=== PATIENT | female | born 1955 | race Caucasian/White ===

== ENCOUNTER → 2018-03-29 15:41 | Outpatient (CLI) | payer BC, SELFPAY | PROVIDERS: PCP Family Medicine; Visit Provider Family Medicine | DX: R00.2 Palpitations (principal) | CPT/HCPCS: 93225; 93226 ==

== ENCOUNTER → 2018-04-05 15:05 | Outpatient (CLI) | payer BC, SELFPAY ==
--- NOTE | 2018-04-05 15:27 | CA_ITS ---
PROCEDURE: 2-D M-mode and color Doppler study INDICATIONS FOR THE TEST: Chest pain COPD Heart Murmur Tobacco Smoking PalpitationsX Fatigue SyncopeX Edema HypertensionXDiabetes Mellitus Rheumatic Fever SOB SCOTT Obesity Hyperlipidemia Family History HD Additional History DIZZINESS PATIENT INFORMATION HEIGHT: 64 WEIGHT:140 GENDER: Female B/P:117/58 2-D/M-MODE INTERPRETATION: 2-D MEASUREMENTS OBSERVED VALUES IN CMS Right Ventricular Dimension (RVDd) 2.2 Interventricular Septum (Thickness)(IVsd) .9 Left Ventricular Internal Dimensions(LVIDd) 3.9 Left Ventricular Posterior Wall (Thickness)(LVPWd) 1.1 Aortic Root 3.5 Aortic Cusp Separation 2.1 Left Atrial Dimensions (LAD) 2.4 2D 1. Left atrium is normal size, left ventricle is normal size, there is no concentric left ventricular hypertrophy, visually estimated ejection fraction 55% with no obvious regional wall motion abnormality. 2. The right atrium and right ventricle are normal size and contractility. 3. The aortic valve is minimally thickened and fibrosed. 4. The mitral and tricuspid valvular grossly normal. 5. The pulmonic valve is poorly visualized. 6. No significant pericardial effusion noted. DOPPLER INTERROGATION: Doppler interrogation of the aortic, mitral and tricuspid valve reveals presence of mild mitral and tricuspid regurgitation. Tricuspid regurgitant jet velocity insufficient for calculation of the right ventricular systolic pressure, diastolic parameters are within normal range. CONCLUSION: 1. Normal left ventricular size, preserved left ventricular systolic function, visually estimated ejection fraction 55% with no obvious regional wall motion abnormality, diastolic parameters are within normal range. 2. Mild mitral and tricuspid regurgitation 3. No significant pericardial effusion noted.
== END ==
PROVIDERS: Family Provider Family Medicine; PCP Family Medicine; Visit Provider Family Medicine
DX: R00.2 Palpitations (principal)
CPT/HCPCS: 93306

== ENCOUNTER → 2019-05-23 14:42 | Outpatient (CLI) | payer BC, SELFPAY ==
--- NOTE | 2019-05-23 14:49 | XR_ITS ---
EXAM: XR lumbar spine min 4V HISTORY: ITS.REASON: ACUTE LT SIDED LBP W/O SCIATICA ORDERING PHYSICIAN: Giovanni Horner MD PATIENT AGE: 63 years COMPARISON: None FINDINGS: There is degenerative disc disease at T11-T12. Normal alignment of the lumbar spine with no significant degenerative change,. No fracture or dislocation. Mild facet sclerosis is present at L5-S1. The SI joints have an unremarkable appearance IMPRESSION: Mild degenerative change, no acute finding
--- NOTE | 2019-05-23 14:49 | XR_ITS ---
XR sacrum coccyx min 2V CLINICAL INDICATION: Low back pain, injury with pain ORDERING PHYSICIAN: Giovanni Horner MD PATIENT AGE: 63 years Comparison: None FINDINGS: No fracture or dislocation. No lytic or blastic change. 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 IMPRESSION: No acute finding
== END ==
PROVIDERS: PCP Family Medicine; Visit Provider Family Medicine
DX: M54.5 Low back pain (principal)
CPT/HCPCS: 72110; 72220

== ENCOUNTER 2019-06-06 08:47 | Outpatient (RCR) | payer BC, SELFPAY ==
--- NOTE | 2019-06-06 10:26 | HMH.PTOPEV ---
PT Outpatient Evaluation Rehab PT Outpatient Evaluation Start: 06/06/19 10:05 Freq: Status: Active Protocol: Document 06/06/19 10:05 JOYA (Rec: 06/06/19 10:25 JOYA [id number]) Electronically Signed By Jerald Hernandez PT 06/06/19 10:05 Outpatient Therapy Subjective History Subjective History This is the initial Physical Therapy evalaution for Reba Arita. Pt is a 63 y/o female referred to PT for c/o intermittant vertigo w/ chronic dizziness and nausea. Pt reprots she has had c/o dizziness and vertigo for several years. Pt reports she gets vertigo 3-4 x per year . Pt reports recently she fell in her bathroom because she turned around too fast causing her to have vertigo and causing her to fall. Pt reprots when she has vertigo it can last for days and cause severe unrelenting N&V. Chief Complaint Other Symptom Type Other Symptoms Relieved By Prescription Meds Symptoms Aggravated By Bending/Stooping,Twisting Prior Functional Limitations None Current Functional Limitations Housework,Driving,Sleeping, Recreation Activity,Balance, Bending/Stooping Symptom Description Intermittent Level of pain today (0-10) 0 Pain scale - at its best (0-10) 0 Pain scale - at its worst (0-10) 0 Balance Eval Subjective Hx of Complaint Comment intermittan vertigo multiple times/year Chief Complaint vertigo Yes Did you feel dizzy, unsteady or faint? Yes Prior Functional Limitations Prior Functional Cecil Level fully Independent Current Functional Limitations Comment recreation activity, driving Hx of Falls Hx Falls Yes Number in last 6 months 2 Gait/Posture Asssessment General Gait Observation Antalgic Gait Assistive Devices None / NA Level of Transfer Assist Independent Hip Observation in Gait Swing No Deviation Hip Observation in Gait Stance No Deviation Ankle/Foot Observation in Gait Swing No Deviation Ankle/Foot Observation in Gait Stance No Deviation Nystagmus Nystagmus Presence None Oculomotor Gaze Oculomotor Gaze Nml: Vergence Smooth Purs
== END 2019-06-06 08:55 | disposition home or self-care (01) ==
LOC: PT 08:47
PROVIDERS: Visit Provider Family Medicine
DX: H81.10 Benign paroxysmal vertigo, unspecified ear (principal)
CPT/HCPCS: 97112; 97163

== ENCOUNTER → 2021-05-09 08:11 | Outpatient (CLI) | payer MEDICARE, SELFPAY ==
[2021-05-09 10:38] LABS: Chloride 105 mmol/L (98-107); Potassium 4.2 mmoL/L (3.5-5.1); Sodium 140 mmol/L (136-145)
[2021-05-09 10:41] LABS: Alanine Aminotransferase 19 U/L (12-78); Albumin Level 4.2 g/dl (3.5-5.0); Albumin/Globulin Ratio 1.8 (1.1-1.8); Alkaline Phosphatase 72 U/L (38-126); Anion Gap 13.2 mEq/L (5-15); Aspartate Amino Transferase 26 U/L (14-36); Bilirubin,Total 0.7 mg/dl (0.2-1.3); Blood Urea Nitrogen 12 mg/dl (7-17); Carbon Dioxide 26 mmol/L (22.0-30.0); Cholesterol 157 mg/dl (140-200); Estimated Glomerular Filt Rate 100 ml/min (>60); GFR (African American) 121 ML/MIN (>60); Globulin 2.3 g/dL (1.3-3.2); Total Protein,Serum 6.5 g/dl (6.3-8.2); Triglycerides 63 mg/dl (30-150); VLDL Cholesterol 13 mg/dL (0-40)
[2021-05-09 10:42] LABS: Calcium 9.1 mg/dl (8.4-10.2); Chol/HDL Ratio 2.3 (1-3.5); Glucose 88 mg/dl (74-100); HDL Cholesterol 68 mg/dl (40-60)
[2021-05-09 10:53] LABS: Direct LDL Cholesterol 64.83 mg/dL (100-129)
== END ==
PROVIDERS: Visit Provider Family Medicine
DX: I10 Essential (primary) hypertension (principal); E75.5 Other lipid storage disorders
CPT/HCPCS: 36415; 80053; 80061

== ENCOUNTER → 2022-04-09 08:58 | Outpatient (CLI) | payer MEDICARE, SELFPAY | PROVIDERS: PCP Family Medicine; Visit Provider Surgery | DX: Z01.812 Encounter for preprocedural laboratory examination (principal); Z11.52 Encounter for screening for COVID-19; Z12.11 Encounter for screening for malignant neoplasm of colon | CPT/HCPCS: C9803; U0003; U0005 ==

== ENCOUNTER 2022-04-11 07:20 | Day surgery (SDC) | payer MEDICARE, SELFPAY ==
[2022-04-09 13:48] VITALS: BMI 22.6
[2022-04-11] VITALS (8 sets, daily range): BP systolic 90–149; BP diastolic 56–83; PULSE 55–75; RESP 16–18; TEMP 36.3–36.6; O2SAT 97–100
--- NOTE | 2022-04-11 07:46 | HMH.GSHP ---
HPI HPI: Patient is a pleasant 66-year-old female referred by Dr. Cao for colonoscopy. She had wished to come to the office to discuss colonoscopy prior to proceeding and was seen on 03/11/22. I had previously cared for her as he had necrotizing cholecystitis. She has undergone previous colonoscopies by Dr. Doyle in [place]. Her last colonoscopy was 7 years ago and 5-year colonoscopy was recommended. She states that she has had problems with constipation her entire life . She has tried everything . She is currently been on MiraLAX daily for approximately 10 years and this does help as she moves her bowels essentially daily. However, she states that about every 10 to 14 days that she has a very large bowel movement. This is usually followed with lower abdominal pain in her bilateral lower quadrants. This usually is short-lived but she has had times when it lasts greater than several days. 1 time she had an episode that lasted for 2 weeks. 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 She is also noticed some narrowing caliber of her stools. Of note, the patient states that her is scheduled for colonoscopy in a few weeks with me. [facility] History I have reviewed the patient's past medical history: Yes Medical History: Reports:: Arrhythmia, Cancer (skin), Hyperlipidemia, Hypertension Denies:: Diabetes Mellitus Type 1, Diabetes Mellitus Type 2, Internal Pacemaker, MRSA, Seizures *Have you ever received a pneumonia vaccine?: Yes *Have you received a flu vaccine this season?: Yes Laterality Cases: Left: Arthroscopy Hip, Total Hip Replacement, Bilateral: Tonsillectomy Other Surgeries: Yes: Colonoscopy, Other. No: Pacemaker Amputation: No - *Social History Last grade of school completed: Some college Smoking Status: Never smoker Alcohol Intake: current Alcohol Intake Frequency:: a few times a week Substance Use Type: denies use *Occupational Status:: retired Housing: house Household Members: spouse *Travel in the last 8 weeks: None Family Hx:: No significant family history Review of Systems - Review of Systems Review of systems:: pertinent systems reviewed and negative unless documented below Meds Home Medications Medication Instructions Recorded Confirmed Type atorvastatin 10 mg tablet 10 mg PO QDAY 12/02/17 04/11/22 History montelukast 10 mg tablet 10 mg PO QHS 12/02/17 04/11/22 History bisoprolol fumarate 5 mg tablet 5 mg PO DAILY 09/27/19 04/11/22 History cholecalciferol (vitamin D3) 625 25,000 unit PO DAILY 09/27/19 04/11/22 History mcg (25,000 unit) capsule ergocalciferol (vitamin D2) 10 mcg 400 unit PO DAILY 09/27/19 04/11/22 History (400 unit) tablet ferrous sulfate 324 mg (65 mg 324 mg PO DAILY 09/27/19 04/11/22 History iron) tablet,delayed release glucosamine HCl 1,500 mg tablet 1,500 mg PO DAILY 09/27/19 04/11/22 History polyethylene glycol 3350 17 17 g PO DAILY 09/27/19 04/11/22 History gram/dose oral powder Sodium, Potassium,Mag Sulfates 16 oz PO ONCE 04/09/22 04/11/22 History [Suprep Bowel Prep Kit] Allergies Allergy/AdvReac Type Severity Reaction Status Date / Time acetaminophen [From PERCOCET] Allergy Unknown Verified 04/11/22 07:27 amoxicillin [From AUGMENTIN] Allergy Unknown Verified 04/11/22 07:27 clavulanic acid Allergy Unknown Verified 04/11/22 07:27 [From AUGMENTIN] levofloxacin [From LEVAQUIN] Allergy Unknown Verified 04/11/22 07:27 oxycodone [From PERCOCET] Allergy Unknown Verified 04/11/22 07:27 Exam Vital signs and Labs for Last 24 Hours: Temp Pulse Resp BP Pulse Ox 97.8 F 72 18 149/83 H 97 04/11/22 07:29 04/11/22 07:29 04/11/22 07:29 04/11/22 07:29 04/11/22 07:29 I & O for Last 24 hours: Intake & Output 04/08/22 04/09/22 04/10/22 04/11/22 11:59 11:59 11:59 11:59 Weight 140 lb - Constitutional no acute distress - *Routine HEENT Exam Head: Present: normocephalic Eye: Present: EOMI, PERRL ENT: Present
--- NOTE | 2022-04-11 08:07 | HMH.ANESCL ---
[facility] Anesthesia Checklist - Patient Identification Patient Identification: Arm Band, Verbal (Name & ) - Structural Data Admitted From: Home Planned Operative Procedure/s: Colonoscopy Consent for Planned Operative Procedure(s) Verified: Yes Verified Documents: Surgical Consent - NPO Status Verified Time NPO: 00:00 - Airway Assessment C-Spine Mobility Assessed: Yes TMJ Mobility Assessed: Yes Dentition: Good Dentition - Neurological Assessment Level of Consciousness: Awake, Alert, Appropriate - Anesthesia Plan ASA Class: II Anesthesia Type: MAC [facility] History I have reviewed the patient's past medical history: Yes Medical History: Reports:: Arrhythmia, Cancer (skin), Hyperlipidemia, Hypertension Denies:: Diabetes Mellitus Type 1, Diabetes Mellitus Type 2, Internal Pacemaker, MRSA, Seizures *Have you ever received a pneumonia vaccine?: Yes *Have you received a flu vaccine this season?: Yes Anesthesia experience/problems:: none Laterality Cases: Left: Arthroscopy Hip, Total Hip Replacement, Bilateral: Tonsillectomy Other Surgeries: Yes: Colonoscopy, Other. No: Pacemaker Amputation: No - *Social History Last grade of school completed: Some college Smoking Status: Never smoker Alcohol Intake: current Alcohol Intake Frequency:: a few times a week Substance Use Type: denies use *Occupational Status:: retired Housing: house Household Members: spouse *Travel in the last 8 weeks: None Family Hx:: No significant family history
--- NOTE | 2022-04-11 08:43 | HMH.SCOPE ---
- Procedure: Date: 04/11/22 Patient Date of :: 1955 Procedure Performed:: Total colonoscopy to terminal ileum Indications:: Patient is a pleasant 66-year-old female referred by Dr. Cao for colonoscopy. She had wished to come to the office to discuss colonoscopy prior to proceeding and was seen on 03/11/22. I had previously cared for her as he had necrotizing cholecystitis. She has undergone previous colonoscopies by Dr. Doyle in [place]. Her last colonoscopy was 7 years ago and 5-year colonoscopy was recommended. She states that she has had problems with constipation her entire life . She has tried everything . She is currently been on MiraLAX daily for approximately 10 years and this does help as she moves her bowels essentially daily. However, she states that about every 10 to 14 days that she has a very large bowel movement. This is usually followed with lower abdominal pain in her bilateral lower quadrants. This usually is short-lived but she has had times when it lasts greater than several days. 1 time she had an episode that lasted for 2 weeks. 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 She is also noticed some narrowing caliber of her stools. Of note, the patient states that her is scheduled for colonoscopy in a few weeks with me. Performing Provider:: Godfrey Anderson MD Referring Provider:: Brandon Cao MD Sedation:: MAC sedation Procedure:: Patient was taken to endoscopy procedure room. She was positioned in lateral decubitus position. Adequate intravenous sedation was achieved with anesthesia titration of propofol. Variable stiffness Olympus colonoscope was inserted via the anus. It was ultimately advanced to the cecum with some difficulty due to significant redundancy of the sigmoid colon. Ileocecal valve and appendiceal orifice were clearly identified. Preparation was good. Colonoscope was slowly withdrawn through the colon with careful surveillance. Due to the redundancy of the sigmoid colon the colonoscope had to be readvanced for thorough examination and then slowly withdrawn. There were no polyps or diverticuli noted. Within the rectum retroflexion was performed which revealed minimal prolapsing internal hemorrhoids. Colonoscope was withdrawn. Findings:: Profound redundancy of sigmoid colon Recommendations:: Likely repeat colonoscopy 5 years given prior history. Complications:: None immediately apparent Estimated blood obtained (mL): 0
== END 2022-04-11 10:10 | disposition home or self-care (01) ==
LOC: OUTP 07:22
PROVIDERS: PCP Family Medicine; Visit Provider Surgery
PROC: 0DJD8ZZ Inspection of Lower Intestinal Tract, Via Natural or Artificial Opening Endoscopic (ICD-10-PCS; principal; 2022-04-11 08:30)
DX: Z12.11 Encounter for screening for malignant neoplasm of colon (principal); K63.89 Other specified diseases of intestine; E78.5 Hyperlipidemia, unspecified; I10 Essential (primary) hypertension; Z85.828 Personal history of other malignant neoplasm of skin; I49.9 Cardiac arrhythmia, unspecified; Z88.1 Allergy status to other antibiotic agents; Z88.6 Allergy status to analgesic agent; Z79.899 Other long term (current) drug therapy
CPT/HCPCS: G0121; 88305; J2704

== ENCOUNTER → 2022-05-08 08:19 | Outpatient (CLI) | payer MEDICARE, SELFPAY ==
[2022-05-08 08:35] LABS: Basophils # 0.1 K/mm3 (0-0.2); Basophils % 1.7 % (0.1-2.0); Eosinophils # 0.3 K/mm3 (0.0-0.4); Eosinophils % 6.8 % (0.1-12.0); Hematocrit 38.9 % (37.0-47.0); Hemoglobin 13.5 g/dL (12.2-16.2); Lymphocytes # 1.5 K/mm3 (0.7-4.5); Mean Corpuscular HGB Conc 34.7 g/dL (31.8-35.4); Mean Corpuscular Hemoglobin 32.6 pg (27.0-31.2); Mean Corpuscular Volume 93.8 fl (81-99); Mean Platelet Volume 8.9 fl (7.4-10.4); Monocytes # 0.3 K/mm3 (0.1-1.0); Monocytes % 7.2 % (1.7-9.3); Neutrophils # 1.6 K/mm3 (1.8-7.8); Neutrophils % 43.4 % (37.0-80.0); Platelet Count 236 K/mm3 (142-424); Red Blood Count 4.15 M/mm3 (4.20-5.40); Red Cell Distribution Width 12.9 % (11.5-17.5); White Blood Count 3.7 K/mm3 (4.8-10.8)
[2022-05-08 09:52] LABS: Alanine Aminotransferase 51 U/L (12-78); Albumin Level 4.1 g/dl (3.5-5.0); Albumin/Globulin Ratio 1.9 (1.1-1.8); Alkaline Phosphatase 72 U/L (38-126); Anion Gap 10.5 mEq/L (5-15); Aspartate Amino Transferase 41 U/L (14-36); Bilirubin,Total 0.2 mg/dl (0.2-1.3); Blood Urea Nitrogen 12 mg/dl (7-17); Calcium 9.6 mg/dl (8.4-10.2); Carbon Dioxide 28 mmol/L (22.0-30.0); Chloride 106 mmol/L (98-107); Chol/HDL Ratio 2.5 (1-3.5); Cholesterol 143 mg/dl (140-200); Estimated Glomerular Filt Rate 100 ml/min (>60); GFR (African American) 121 ML/MIN (>60); Globulin 2.2 g/dL (1.3-3.2); Glucose 89 mg/dl (74-100); HDL Cholesterol 57 mg/dl (40-60); Potassium 4.5 mmoL/L (3.5-5.1); Sodium 140 mmol/L (136-145); Total Protein,Serum 6.3 g/dl (6.3-8.2); Triglycerides 94 mg/dl (30-150); VLDL Cholesterol 19 mg/dL (0-40)
[2022-05-08 10:10] LABS: 25-OH Vitamin D, Total 57.2 ng/mL (30-100)
[2022-05-08 10:14] LABS: Iron 112 ug/dL (37-170)
[2022-05-08 10:22] LABS: Thyroid Stimulating Hormone 1.88 uIU/mL (0.465-4.68)
[2022-05-08 12:22] LABS: Direct LDL Cholesterol 54.05 mg/dL (100-129)
== END ==
PROVIDERS: PCP Family Medicine; Visit Provider Physician Assistant
DX: R00.2 Palpitations (principal); I10 Essential (primary) hypertension; E78.5 Hyperlipidemia, unspecified; E61.1 Iron deficiency; E55.9 Vitamin D deficiency, unspecified
CPT/HCPCS: 36415; 80053; 80061; 82306; 83540; 84443; 85025

== ENCOUNTER → 2022-06-17 11:44 | Outpatient (CLI) | payer MEDICARE, SELFPAY ==
[2022-06-17 12:30] LABS: Basophils % 0.9 % (0.1-2.0); Eosinophils # 0.2 K/mm3 (0.0-0.4); Eosinophils % 4.5 % (0.1-12.0); Hematocrit 40.6 % (37.0-47.0); Hemoglobin 13.7 g/dL (12.2-16.2); Lymphocytes # 1.4 K/mm3 (0.7-4.5); Lymphocytes % 27.6 % (10-50); Mean Corpuscular HGB Conc 33.7 g/dL (31.8-35.4); Mean Corpuscular Volume 91.9 fl (81-99); Mean Platelet Volume 7.6 fl (7.4-10.4); Monocytes # 0.3 K/mm3 (0.1-1.0); Monocytes % 6.4 % (1.7-9.3); Neutrophils % 60.7 % (37.0-80.0); Platelet Count 233 K/mm3 (142-424); Red Blood Count 4.42 M/mm3 (4.20-5.40); Red Cell Distribution Width 12.3 % (11.5-17.5); White Blood Count 4.9 K/mm3 (4.8-10.8)
[2022-06-17 13:31] LABS: Alanine Aminotransferase 39 U/L (12-78); Albumin Level 4.2 g/dl (3.5-5.0); Albumin/Globulin Ratio 1.8 (1.1-1.8); Alkaline Phosphatase 104 U/L (38-126); Anion Gap 10.3 mEq/L (5-15); Aspartate Amino Transferase 38 U/L (14-36); Bilirubin,Total 0.2 mg/dl (0.2-1.3); Blood Urea Nitrogen 13 mg/dl (7-17); Calcium 9.9 mg/dl (8.4-10.2); Carbon Dioxide 26 mmol/L (22.0-30.0); Chloride 105 mmol/L (98-107); Estimated Glomerular Filt Rate 100 ml/min (>60); GFR (African American) 121 ML/MIN (>60); Globulin 2.4 g/dL (1.3-3.2); Glucose 94 mg/dl (74-100); Potassium 4.3 mmoL/L (3.5-5.1); Sodium 137 mmol/L (136-145); Total Protein,Serum 6.6 g/dl (6.3-8.2)
== END ==
PROVIDERS: Physician Assistant; PCP Family Medicine; Visit Provider Family Medicine
DX: I10 Essential (primary) hypertension (principal)
CPT/HCPCS: 36415; 80053; 85025

== ENCOUNTER → 2022-07-29 09:28 | Outpatient (CLI) | payer MEDICARE, SELFPAY ==
[2022-07-29 10:56] LABS: Albumin Level 4.2 g/dl (3.5-5.0); Anion Gap 9.1 mEq/L (5-15); Blood Urea Nitrogen 16 mg/dl (7-17); Calcium 9.9 mg/dl (8.4-10.2); Carbon Dioxide 27 mmol/L (22.0-30.0); Chloride 107 mmol/L (98-107); Estimated Glomerular Filt Rate 83 ml/min (>60); GFR (African American) 101 ML/MIN (>60); Glucose 94 mg/dl (74-100); Phosphorous 3.7 mg/dl (2.5-4.5); Potassium 4.1 mmoL/L (3.5-5.1); Sodium 139 mmol/L (136-145)
[2022-07-29 11:13] LABS: 25-OH Vitamin D, Total 64.4 ng/mL (30-100)
[2022-07-31 18:08] LABS: N-Telopeptide Cross-linked 16.9 nmol BCE/L (6.2-19.0)
[2022-08-02 02:11] LABS: Tandem-R Ostase 19.3 ug/L (.)
== END ==
PROVIDERS: PCP Family Medicine; Visit Provider Internal Medicine Endocrinology, Diabetes & Metabolism
DX: M81.0 Age-related osteoporosis without current pathological fracture (principal)
CPT/HCPCS: 36415; 80069; 82306; 82523; 84080

== ENCOUNTER → 2023-07-16 10:32 | Outpatient (CLI) | payer MEDICARE, SELFPAY | PROVIDERS: PCP Family Medicine; Visit Provider Family Medicine | DX: I48.0 Paroxysmal atrial fibrillation (principal) | CPT/HCPCS: 93225 ==

== ENCOUNTER → 2023-07-29 08:54 | Outpatient (CLI) | payer MEDICARE, SELFPAY ==
[2023-07-29 10:06] LABS: Albumin Level 4.4 g/dl (3.5-5.0); Anion Gap 8.3 mEq/L (5-15); Blood Urea Nitrogen 13 mg/dl (7-17); Calcium 9.7 mg/dl (8.4-10.2); Carbon Dioxide 28 mmol/L (22.0-30.0); Chloride 106 mmol/L (98-107); Estimated Glomerular Filt Rate 99 ml/min (>60); GFR (African American) 120 ML/MIN (>60); Glucose 87 mg/dl (74-100); Phosphorous 3.7 mg/dl (2.5-4.5); Potassium 4.3 mmoL/L (3.5-5.1); Sodium 138 mmol/L (136-145)
[2023-07-29 10:21] LABS: 25-OH Vitamin D, Total 56.7 ng/mL (30-100)
[2023-08-03 14:56] LABS: Tandem-R Ostase 16.2 ug/L (.)
== END ==
PROVIDERS: PCP Family Medicine; Visit Provider Internal Medicine Endocrinology, Diabetes & Metabolism
DX: M81.0 Age-related osteoporosis without current pathological fracture (principal)
CPT/HCPCS: 36415; 80069; 82306; 84080

== ENCOUNTER → 2023-07-31 07:39 | Outpatient (CLI) | payer MEDICARE, SELFPAY ==
--- NOTE | 2023-07-31 | CA_ITS ---
APPROVED REPORT EXAM: Comprehensive 2D, Doppler, and color-flow Echocardiogram Credit Control Assistant: Selina Herrera, RCS, RVS Ht: 5 ft 6 in Wt: 140lbs BSA: 1.72 BP: 110/70 mmHg Rhythm: NSR Indications: NEW AFIB, FAMILY HX- AFIB 2D Dimensions Aortic Root 2.97 cm F: 2.7 - 3.3 LA Volume 32.30 mL Left Atrium 2.33 cm F: 2.7 - 3.8 LA Volume Index [id number] mL/m2 (M/F) 16-34 LVOT 1.90 cm (M/F) 1.5-2.5 M-Mode Dimensions RVDd 1.97 cm (0.9-2.6) LA Diam 1.72 cm (1.9-4.0) LVDd 4.87 cm (3.5-5.7) Ao Diam 3.09 cm (2.0-3.7) LVDs 3.18 cm (3.5-5.7) IVSd 0.72 cm (0.6-1.1) PWd 0.93 cm (0.6-1.1) EF (Teich) 63.80% EPSs 1.76 cm FS 34.70% EDV (Teich) 111.20 mL ESV (Teich) 40.30 mL LV Diastology E Decel Time 313.00 (160-240 msec) E/A Ratio 0.90 MED E' 6.10 (< 7 cm/sec) MED A' 9.40 cm/s E'/MED E' Ratio 8.33 (>14) LAT E' 9.30 (<10 cm/sec) LAT A' 10.80 cm/s E/LAT E' Ratio 5.46 (>14) Aortic Valve LVOT Max 84.00 (70-110 cm/s) LVOT VTI 17.47 cm AoV Peak Mike. 112.00 (50-130 cm/s) AO Peak GR. 5.00 mmHg AO Mean GR. 2.50 (<5 mmHg) AO VTI 21.94 (18-25 cm) ERNIE (VTI) 2.26 (2.5-4.5 cm2) Mitral Valve MV A Velocity 56.00 (40-130 cm/s) E/A Ratio 0.90 MV Decel. Time 313.00 (160-240 ms) Pulmonary Valve PV Peak Velocity 59.00 (50-150 cm/s) Tricuspid Valve TR P. Velocity 204.00 cm/s RAP Estimate 10.00 mmHg RVSP 26.70 mmHg Left Ventricle The left ventricle is normal size. The left ventricular systolic function is normal. The left ventricular ejection fraction is within the normal range. There is normal left ventricular wall thickness. There is normal LV segmental wall motion. The left ventricular diastolic function is normal. LVEF is 60%. Right Ventricle The right ventricle is normal size. The right ventricular systolic function is normal. Atria The left atrium size is normal. The right atrium size is normal. Aortic Valve The aortic valve opens well. There is no aortic valvular stenosis. No aortic regurgitation is present. Mitral Valve The mitral valve is normal in structure. No evidence of mitral valve stenosis. Trace mitral regurgitation. Tricuspid Valve The tricuspid valve leaflets are thin and pliable. Trace tricuspid regurgitation. RVSP is 10 mmHg + RA pressure. Pulmonic Valve The pulmonary valve is normal in structure. Trace pulmonic regurgitation. Great Vessels The aortic root is normal in size. The ascending aorta is normal in size. The IVC is not well visualized. Pericardium There is no pericardial effusion. Other Information Study Quality: Adequate Conclusion Normal biventricular systolic function. No significant valvular disease. Electronically signed by : Catherine Parker, 08/04/2023 22:50:27
== END ==
PROVIDERS: PCP Family Medicine; Visit Provider Family Medicine
DX: I48.0 Paroxysmal atrial fibrillation (principal)
CPT/HCPCS: 93306

== ENCOUNTER → 2023-11-03 13:34 | Outpatient (CLI) | payer MEDICARE, SELFPAY ==
[2023-11-03 15:29] LABS: Iron 57 ug/dL (37-170)
[2023-11-03 15:39] LABS: Total Iron Binding Capacity 294 ug/dL (265-497)
== END ==
PROVIDERS: PCP Family Medicine; Visit Provider Internal Medicine Medical Oncology
DX: D50.9 Iron deficiency anemia, unspecified (principal)
CPT/HCPCS: 36415; 83540; 83550

== ENCOUNTER 2024-01-15 11:15 | Outpatient (CLI) | payer MEDICARE, SELFPAY ==
[2024-01-15 11:19] VITALS: BP 183/87; PULSE 73; RESP 16; TEMP 36.2; O2SAT 100; BMI 22.8
[2024-01-15 11:54] LABS: Basophils % 0.4 % (0.1-2.0); Eosinophils # 0.4 K/mm3 (0.0-0.4); Eosinophils % 7.4 % (0.1-12.0); Hematocrit 43.2 % (37.0-47.0); Hemoglobin 14.1 g/dL (12.2-16.2); Lymphocytes # 1.7 K/mm3 (0.7-4.5); Lymphocytes % 33.6 % (10-50); Mean Corpuscular HGB Conc 32.7 g/dL (31.8-35.4); Mean Corpuscular Hemoglobin 30.1 pg (27.0-31.2); Mean Corpuscular Volume 92.1 fl (81-99); Mean Platelet Volume 7.9 fl (7.4-10.4); Monocytes # 0.3 K/mm3 (0.1-1.0); Neutrophils # 2.8 K/mm3 (1.8-7.8); Neutrophils % 53.6 % (37.0-80.0); Platelet Count 282 K/mm3 (142-424); Red Blood Count 4.69 M/mm3 (4.20-5.40); Red Cell Distribution Width 13.1 % (11.5-17.5); White Blood Count 5.1 K/mm3 (4.8-10.8)
[2024-01-15] MEDS: 0.9 % SODIUM CHLORIDE 1000ML 1,000 ML 999 ML IV ×2 (11:55→12:55)
[2024-01-15 12:22] LABS: Chloride 108 mmol/L (98-107)
[2024-01-15 12:23] LABS: Potassium 3.7 mmoL/L (3.5-5.1); Sodium 139 mmol/L (136-145)
[2024-01-15 12:25] LABS: Amylase 98 U/L (30-110)
[2024-01-15 12:26] LABS: Alanine Aminotransferase 45 U/L (12-78); Albumin Level 4.2 g/dl (3.5-5.0); Albumin/Globulin Ratio 1.4 (1.1-1.8); Alkaline Phosphatase 111 U/L (38-126); Anion Gap 5.7 mEq/L (5-15); Aspartate Amino Transferase 48 U/L (14-36); Bilirubin,Total 0.5 mg/dl (0.2-1.3); Blood Urea Nitrogen 7 mg/dl (7-17); Calcium 9.2 mg/dl (8.4-10.2); Carbon Dioxide 29 mmol/L (22.0-30.0); Creatinine Clearance Estimated 54 mL/min (50-200); Estimated Glomerular Filt Rate 83 ml/min (>60); GFR (African American) 100 ML/MIN (>60); Glucose 92 mg/dl (74-100); Lipase 81 U/L (23-300); Total Protein,Serum 7.2 g/dl (6.3-8.2)
[2024-01-15 12:30] VITALS: BP 167/84; PULSE 72
[2024-01-15] MEDS: ONDANSETRON 4MG/2ML VIAL 4 MG (12:55)
[2024-01-15 13:00] VITALS: BP 169/71; PULSE 73
[2024-01-15 14:06] VITALS: BP 164/72; PULSE 71
== END 2024-01-15 14:07 | disposition home or self-care (01) ==
LOC: INF 11:16
PROVIDERS: PCP Family Medicine; Visit Provider Physician Assistant
DX: E86.0 Dehydration (principal); K52.9 Noninfective gastroenteritis and colitis, unspecified
CPT/HCPCS: 80053; 82150; 83690; 85025; 96360; 96361; J2405

== ENCOUNTER 2024-05-05 14:10 | Outpatient (CLI) | payer MEDICARE, SELFPAY ==
[2024-05-05 15:11] LABS: D-Dimer 0.94 ug/mL (0.0-0.5)
[2024-05-05 15:57] LABS: Alanine Aminotransferase 23 U/L (12-78); Albumin Level 4.4 g/dl (3.5-5.0); Albumin/Globulin Ratio 1.6 (1.1-1.8); Alkaline Phosphatase 91 U/L (38-126); Anion Gap 14.7 mEq/L (5-15); Aspartate Amino Transferase 27 U/L (14-36); Bilirubin,Total 0.5 mg/dl (0.2-1.3); Blood Urea Nitrogen 12 mg/dl (7-17); Calcium 10.1 mg/dl (8.4-10.2); Carbon Dioxide 27 mmol/L (22.0-30.0); Chloride 100 mmol/L (98-107); Estimated Glomerular Filt Rate 83 ml/min (>60); GFR (African American) 100 ML/MIN (>60); Globulin 2.8 g/dL (1.3-3.2); Glucose 90 mg/dl (74-100); Potassium 3.7 mmoL/L (3.5-5.1); Sodium 138 mmol/L (136-145); Total Protein,Serum 7.2 g/dl (6.3-8.2)
[2024-05-05 16:34] LABS: Ferritin 253 ng/ml (11.1-264)
[2024-05-05 17:39] LABS: Iron 84 ug/dL (37-170)
== END 2024-05-05 23:59 | disposition home or self-care (01) ==
LOC: LAB 14:14
PROVIDERS: PCP Physician Assistant; Visit Provider Physician Assistant
DX: R74.8 Abnormal levels of other serum enzymes (principal); R07.9 Chest pain, unspecified; R79.89 Other specified abnormal findings of blood chemistry
CPT/HCPCS: 36415; 80053; 82728; 83540; 85378

== ENCOUNTER 2024-07-28 08:37 | Outpatient (CLI) | payer MEDICARE, SELFPAY ==
[2024-07-28 09:43] LABS: Albumin Level 4.2 g/dl (3.5-5.0); Chloride 107 mmol/L (98-107); Sodium 137 mmol/L (136-145)
[2024-07-28 09:44] LABS: Potassium 4.1 mmoL/L (3.5-5.1)
[2024-07-28 09:46] LABS: Alanine Aminotransferase 18 U/L (12-78); Albumin/Globulin Ratio 1.7 (1.1-1.8); Alkaline Phosphatase 98 U/L (38-126); Anion Gap 9.1 mEq/L (5-15); Aspartate Amino Transferase 22 U/L (14-36); Bilirubin,Total 0.6 mg/dl (0.2-1.3); Blood Urea Nitrogen 10 mg/dl (7-17); Carbon Dioxide 25 mmol/L (22.0-30.0); Cholesterol 152 mg/dl (140-200); Estimated Glomerular Filt Rate 83 ml/min (>60); GFR (African American) 100 ML/MIN (>60); Globulin 2.5 g/dL (1.3-3.2); Iron 102 ug/dL (37-170); Phosphorous 3.5 mg/dl (2.5-4.5); Total Protein,Serum 6.7 g/dl (6.3-8.2); Triglycerides 91 mg/dl (30-150); VLDL Cholesterol 18 mg/dL (0-40)
[2024-07-28 09:47] LABS: Calcium 9.7 mg/dl (8.4-10.2); Chol/HDL Ratio 2.7 (1-3.5); Glucose 88 mg/dl (74-100); HDL Cholesterol 56 mg/dl (40-60)
[2024-07-28 09:57] LABS: Direct LDL Cholesterol 62.31 mg/dL (100-129)
[2024-07-28 10:18] LABS: Thyroid Stimulating Hormone 1.37 uIU/mL (0.465-4.68)
[2024-07-28 10:22] LABS: Ferritin 253 ng/ml (11.1-264)
[2024-08-05 22:05] LABS: C-Telopeptide Serum 404 pg/mL (.)
== END 2024-07-28 23:59 | disposition home or self-care (01) ==
LOC: LAB 08:41
PROVIDERS: PCP Physician Assistant; Visit Provider Physician Assistant
DX: E61.1 Iron deficiency (principal); E78.5 Hyperlipidemia, unspecified; I10 Essential (primary) hypertension; E55.9 Vitamin D deficiency, unspecified; M81.0 Age-related osteoporosis without current pathological fracture
CPT/HCPCS: 36415; 80053; 80061; 80069; 82306; 82523; 82728; 83540; 84443

== ENCOUNTER 2024-10-06 08:31 | Outpatient (CLI) | payer MEDICARE, SELFPAY ==
[2024-10-06 09:28] LABS: Albumin Level 4.2 g/dl (3.5-5.0); Anion Gap 9.8 mEq/L (5-15); Blood Urea Nitrogen 12 mg/dl (7-17); Calcium 9.5 mg/dl (8.4-10.2); Carbon Dioxide 26 mmol/L (22.0-30.0); Chloride 108 mmol/L (98-107); Estimated Glomerular Filt Rate 83 ml/min (>60); GFR (African American) 100 ML/MIN (>60); Glucose 68 mg/dl (74-100); Phosphorous 3.2 mg/dl (2.5-4.5); Potassium 3.8 mmoL/L (3.5-5.1); Sodium 140 mmol/L (136-145)
[2024-10-11 12:28] LABS: Tandem-R Ostase 23.7 ug/L (.)
[2024-10-14 22:08] LABS: C-Telopeptide Serum 547 pg/mL (.)
[2024-10-19 09:26] LABS: Serial Monitoring PDF SCANNED IMAGE
== END 2024-10-06 23:59 | disposition home or self-care (01) ==
LOC: LAB 08:34
PROVIDERS: PCP Family Medicine; Visit Provider Physician Assistant
DX: M81.0 Age-related osteoporosis without current pathological fracture (principal)
CPT/HCPCS: 36415; 80069; 82523; 84080

== ENCOUNTER 2024-11-29 15:23 | Outpatient (CLI) | payer MEDICARE, SELFPAY ==
[2024-11-29 15:58] LABS: Basophils % 0.6 % (0.1-2.0); Eosinophils # 0.1 K/mm3 (0.0-0.4); Eosinophils % 1.3 % (0.1-12.0); Hematocrit 41.1 % (37.0-47.0); Hemoglobin 13.8 g/dL (12.2-16.2); Lymphocytes # 1.2 K/mm3 (0.7-4.5); Lymphocytes % 22.2 % (10-50); Mean Corpuscular HGB Conc 33.6 g/dL (31.8-35.4); Mean Corpuscular Hemoglobin 30.3 pg (27.0-31.2); Mean Corpuscular Volume 90.3 fl (81-99); Mean Platelet Volume 9.7 fl (7.4-10.4); Monocytes # 0.4 K/mm3 (0.1-1.0); Monocytes % 6.4 % (1.7-9.3); Neutrophils # 3.8 K/mm3 (1.8-7.8); Neutrophils % 69.1 % (37.0-80.0); Platelet Count 247 K/mm3 (142-424); Red Blood Count 4.55 M/mm3 (4.20-5.40); Red Cell Distribution Width 12.4 % (11.5-17.5); White Blood Count 5.4 K/mm3 (4.8-10.8)
[2024-11-29 16:34] LABS: Alanine Aminotransferase 22 U/L (12-78); Albumin Level 4.5 g/dl (3.5-5.0); Alkaline Phosphatase 102 U/L (38-126); Aspartate Amino Transferase 27 U/L (14-36); Bilirubin,Direct 0.3 mg/dl (0.0-0.4); Bilirubin,Indirect 0.2 mg/dL (0.0-0.9); Bilirubin,Total 0.5 mg/dl (0.2-1.3); Bilirubin,Unconjugated 0.2 mg/dL (0.0-1.1); Blood Urea Nitrogen 14 mg/dl (7-17); Carbon Dioxide 26 mmol/L (22.0-30.0); Chloride 105 mmol/L (98-107); Chol/HDL Ratio 2.6 (1-3.5); Cholesterol 164 mg/dl (140-200); Estimated Glomerular Filt Rate 99 ml/min (>60); GFR (African American) 120 ML/MIN (>60); Glucose 92 mg/dl (74-100); HDL Cholesterol 64 mg/dl (40-60); Magnesium 1.8 mg/dl (1.6-2.3); Sodium 137 mmol/L (136-145); Total Protein,Serum 6.7 g/dl (6.3-8.2); Triglycerides 131 mg/dl (30-150); VLDL Cholesterol 26 mg/dL (0-40)
[2024-11-29 16:45] LABS: Direct LDL Cholesterol 75.97 mg/dL (100-129)
[2024-11-29 16:48] LABS: Free T4 (Free Thyroxine) 0.92 ng/dl (0.78-2.19)
== END 2024-11-29 23:59 | disposition home or self-care (01) ==
LOC: LAB 15:24
PROVIDERS: PCP Family Medicine; Visit Provider Internal Medicine
DX: I48.0 Paroxysmal atrial fibrillation (principal); R07.9 Chest pain, unspecified; R06.00 Dyspnea, unspecified; R55 Syncope and collapse; R00.2 Palpitations; I10 Essential (primary) hypertension
CPT/HCPCS: 36415; 80048; 80061; 80076; 83735; 84439; 84443; 85025; 93225; 93227

== ENCOUNTER 2024-12-01 15:40 | Outpatient (CLI) | payer MEDICARE, SELFPAY | END 2024-12-01 23:59 | disposition home or self-care (01) | LOC: RT 15:41 | PROVIDERS: PCP Family Medicine; Visit Provider Internal Medicine | DX: I48.0 Paroxysmal atrial fibrillation (principal); R00.2 Palpitations; R55 Syncope and collapse | CPT/HCPCS: 93270 ==

== ENCOUNTER 2024-12-06 06:43 | Outpatient (CLI) | payer MEDICARE, SELFPAY ==
--- NOTE | 2024-12-06 | CA_ITS ---
APPROVED REPORT Exam: Pharmacologic Technologist: Heavenly Fonseca Ht: 5 ft 6 in Wt: 146 lbs BSA: 1.75 m2 HR: 72 bpm BP: 181/89 mmHg Stress Test Details Test: Lexiscan HR Resting HR: 72 bpm Max Heart Rate (APMHR): 151 bpm Max HR Achieved: 116 bpm Target HR (85% APMHR): 128 bpm % of APMHR: 77 Recovery HR: 63 bpm BP Resting BP: 181.0/89.0 mmHg Max BP: 181.0/89.0 mmHg Recovery BP: 134.0/74.0 mmHg ECG Resting ECG: Sinus rhythm Stress ECG Conclusion Symptoms: Dizziness, lightheaded, vagal reaction, hypotension, diaphoretic Arrhythmias/Ectopy: PAC ST-T Changes: Less than [address] depression Conclusion: EKG unremarkable due to lexiscan infuision. Electronically signed by : Catherine Parker MD 12/06/2024 12:28:10
--- NOTE | 2024-12-06 06:47 | NM_ITS ---
APPROVED REPORT Exam: Nuclear Stress Test Indication: SOB, Afib, Palpitations, Syncope, HTN, High cholesterol, Family history Patient Location: Outpatient Stress Tech: Heavenly Fonseca [place] Tech:Kelsi Garcia, ARRT, RT (R)(N) Ht: 5 ft 5 in Wt: 140 lbs Bra Size: 38D HR: 67 bpm BP: 181/89 mmHg BSA: 1.70 m2 TID: 1.19 BMI: 23.2 History: SOB, Afib, Palpitations, Syncope, HTN, High cholesterol, Family history Procedure: Patient received 0.4 mg of intravenous Lexiscan, resting heart rate 67 bpm, resting blood pressure 181/89 mmHg, with Lexiscan maximum heart rate achieved was 120 bpm which is % of the maximum predicted heart rate and blood pressure was 103/83 mmHg. With Lexiscan, patient denied any complaint of chest pain. Cardiac Stress and Resting SPECT Images: Cardiac Stress and Resting SPECT images were obtained using technetium 99m Myoview 31.5 mCi stress and 10.38 mCi at rest. Resting and stress imaging in supine and prone positions demonstrate no evidence of fixed or reversible perfusion defects. Gated imaging demonstrates normal global and regional LV systolic function. LVEF is calculated at 59%. Conclusion: No evidence of fixed or reversible perfusion defects. Gated imaging demonstrates normal global and regional LV systolic function. LVEF is calculated at 59%. Electronically signed by : Catherine Parker MD 12/06/2024 12:19:46
--- NOTE | 2024-12-06 08:27 | CA_ITS ---
APPROVED REPORT EXAM: Comprehensive 2D, Doppler, and color-flow Echocardiogram Drier And Pulverizer Tender: Marisabel Murray CRT Ht: 5 ft 6 in Wt: 146lbs BSA: 1.75 BP: 166/89 mmHg Indications: Chest Pain, Shortness of Breath, Atrial Fibrillation, Syncope, Palpitations, Hypertension/HDD 2D Dimensions LA Volume 19.70 mL LA Volume Index 11.00 mL/m2 (M/F) 16-34 M-Mode Dimensions RVDd 2.46 cm (0.9-2.6) LA Diam 3.19 cm (1.9-4.0) LVDd 3.64 cm (3.5-5.7) LVDs 2.26 cm (3.5-5.7) IVSd 1.79 cm (0.6-1.1) PWd 0.97 cm (0.6-1.1) EF (Teich) 69.10% FS 37.90% EDV (Teich) 55.90 mL TAPSE 2.17 (<1.7) ESV (Teich) 17.30 mL LV Diastology E Decel Time 283 (160-240 msec) E/A Ratio 0.79 MED A' 13.40 cm/s LAT A' 13.90 cm/s Aortic Valve AO Peak GR. 6.00 mmHg Mitral Valve MV E Max Mike. 62.0 (40-130 cm/s) MV A Velocity 79.0 (40-130 cm/s) E/A Ratio 0.79 MV PHT 83.0 ms Pulmonary Valve PV Peak Velocity 98.0 (50-150 cm/s) Tricuspid Valve TR P. Velocity 134.00 cm/s Left Ventricle The left ventricle is normal size. The left ventricular systolic function is normal. The left ventricular ejection fraction is within the normal range. There is increased LV wall thickness. There is normal LV segmental wall motion. The left ventricular diastolic function is normal. LVEF is 55%. Right Ventricle The right ventricle is normal size. The right ventricular systolic function is normal. Atria The left atrium size is normal. The right atrium size is normal. There is no Doppler evidence of interatrial shunt. Aortic Valve The aortic valve opens well. There is no aortic valvular stenosis. No aortic regurgitation is present. Mitral Valve The mitral valve is normal in structure. No evidence of mitral valve stenosis. Trace mitral regurgitation. Tricuspid Valve Tricuspid valve is grossly normal in structure and function. Trace tricuspid regurgitation. There is insufficient TR jet to estimate RVSP. Pulmonic Valve The pulmonary valve is normal in structure. Trace pulmonic regurgitation. Great Vessels The aortic root is normal in size. The ascending aorta is normal in size. IVC is normal in size and collapses >50% with inspiration. Pericardium There is no pericardial effusion. Other Information Study Quality: Adequate Conclusion Normal biventricular systolic function. No significant valvular stenosis or regurgitation. Electronically signed by : Catherine Parker MD 12/11/2024 14:51:33
[2024-12-06] MEDS: REGADENOSON 0.4MG/5ML SYRINGE 0.4 MG IV (08:59)
[2024-12-06] MEDS: SODIUM CHLORIDE 0.9% 10ML SYR (RAD ONLY) 10 ML IV ×2 (08:59)
[2024-12-06] MEDS: ISOTOPE MYOVIEW (PER STUDY) 1 DOSE IV (08:59)
== END 2024-12-06 23:59 | disposition home or self-care (01) ==
LOC: RAD 06:44
PROVIDERS: PCP Family Medicine; Visit Provider Internal Medicine
DX: R00.2 Palpitations (principal); I10 Essential (primary) hypertension; R55 Syncope and collapse
CPT/HCPCS: 78452; 93017; 93018; 93306; A9502; J2785

== ENCOUNTER 2024-12-07 14:51 | Outpatient (CLI) | payer MEDICARE, SELFPAY ==
--- NOTE | 2024-12-07 14:55 | MR_ITS ---
PROCEDURE INFORMATION: Exam: MR Head Without and With Contrast Exam date and time: 12/07/2024 3:41 PM Age: 68 years old Clinical indication: Dizziness; Patient HX: Patient has sudden onset vertigo TECHNIQUE: Imaging protocol: Magnetic resonance imaging of the head without and with contrast. Contrast material: ISOVUE; Contrast volume: 14 ml; Contrast route: IV; COMPARISON: No relevant prior studies available. FINDINGS: Brain: No acute infarct identified on the diffusion-weighted imaging. The brain demonstrates mild, age commensurate volume loss. The T2 weighted imaging demonstrates foci of increased signal intensity in the deep and subcortical white matter as well as yasmeen most likely representing mild chronic small vessel ischemic change. No enhancing intracranial pathology. Cerebral ventricles: Normal. No ventriculomegaly. 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 A focus of potential hypoenhancement in the left pituitary gland on coronal image 15 of series 10 measuring 3 mm, possibly a microadenoma. Dedicated pituitary dynamic post-contrast imaging could be performed, as needed, if there is pituitary dysfunction. No significant pituitary gland enlargement. Bones: Unremarkable. Paranasal sinuses: Trace ethmoid mucosal thickening. No acute sinusitis. Mastoid air cells: Trace, dependent right mastoid effusion. Orbital cavities: Unremarkable. Soft tissues: Unremarkable. IMPRESSION: 1. No evidence of recent infarct. 2. Pituitary findings, as above.
[2024-12-07] MEDS: SODIUM CHLORIDE 0.9% 10ML SYR (RAD ONLY) 10 ML IV (16:39)
[2024-12-07] MEDS: GADOTERIDOL INJ 20ML SYRINGE 14 ML IV (16:39)
== END 2024-12-07 23:59 | disposition home or self-care (01) ==
LOC: RAD 14:52
PROVIDERS: PCP Family Medicine; Visit Provider Physician Assistant
DX: R55 Syncope and collapse (principal); R42 Dizziness and giddiness; H93.13 Tinnitus, bilateral
CPT/HCPCS: 70553; A9576

== ENCOUNTER 2025-02-08 11:20 | Outpatient (CLI) | payer MEDICARE, SELFPAY ==
--- NOTE | 2025-02-08 11:29 | XR_ITS ---
FINAL REPORT CLINICAL HISTORY: 1ST AND 2ND DIGIT, dropped a can of food on1st and 2nd toe and then another day base of a jama tree on same toes FINDINGS: RIGHT FOOT 3 views of the right foot were obtained. There is no acute fracture or dislocation. There is moderate hallux valgus deformity. Bones are osteopenic. Mild degenerative changes are seen of the midfoot. Visualized joint spaces are normally aligned. Soft tissues are unremarkable. IMPRESSION: Degenerative changes without acute bony abnormality. Reviewed, Interpreted and Dictated by Timothy Felix MD Transcribed by Betty Lucas Authenticated and [facility]
== END 2025-02-08 23:59 | disposition home or self-care (01) ==
PROVIDERS: PCP Physician Assistant; Visit Provider Physician Assistant
DX: M20.11 Hallux valgus (acquired), right foot (principal); S99.921A Unspecified injury of right foot, initial encounter
CPT/HCPCS: 73630

== ENCOUNTER 2025-02-14 09:13 | Outpatient (CLI) | payer MEDICARE, SELFPAY ==
[2025-02-14 10:08] LABS: Albumin Level 4.5 g/dl (3.5-5.0); Chloride 104 mmol/L (98-107); Sodium 135 mmol/L (136-145)
[2025-02-14 10:11] LABS: Blood Urea Nitrogen 13 mg/dl (7-17); Carbon Dioxide 28 mmol/L (22.0-30.0); Estimated Glomerular Filt Rate 99 ml/min (>60); GFR (African American) 120 ML/MIN (>60); Glucose 100 mg/dl (74-100); Phosphorous 3.1 mg/dl (2.5-4.5)
[2025-02-14 10:12] LABS: Calcium 10.1 mg/dl (8.4-10.2)
[2025-02-17 12:41] LABS: Tandem-R Ostase 24.9 ug/L (.)
[2025-02-17 21:12] LABS: C-Telopeptide Serum 554 pg/mL (.)
[2025-02-24 15:50] LABS: Serial Monitoring PDF SCANNED IMAGE
== END 2025-02-14 23:59 | disposition home or self-care (01) ==
LOC: LAB 09:14
PROVIDERS: PCP Family Medicine; Visit Provider Physician Assistant
DX: M81.0 Age-related osteoporosis without current pathological fracture (principal)
CPT/HCPCS: 36415; 80069; 82523; 84080

== ENCOUNTER 2025-07-20 09:11 | Outpatient (CLI) | payer MEDICARE, SELFPAY ==
--- OUTSIDE RECORDS SUMMARY | 2025-02-08 06:45 | XMS_ITS ---
Author Organization [facility] Address [address] [facility] [address] [place] [phone] Care Team Providers Care Sharepoint Administrator Name Role Phone Jude Cao Primary Care Provider Octavia Sheikh Unavailable [phone] Allergies Allergen (clinical drug ingredient) Drug/Non Drug [...] eduardo 6 hrs, prn Active Vital Signs Blood pressure systolic 160 mm Hg 02/09/20 25 Blood pressure diastolic 90 mm Hg 025 Heart Rate 68 /min 02/08/2025 Height 65 in 02/08/2025 Weight 148.0 lbs 02/08/2025 BMI 24.63 kg/m2 02/08/2025 Encounters Encounter Location Date Provider Diagnosis [facility] [address] [place], [place] [phone] 02/08/2025 Octavia Sheikh Injury of toe on [...] Notes * AVELINA SOLOMONOB:1955 (69 yo F)Acc No.[id number]:02/08/2025 Progress Notes Patient: NORBERTO BONNER Provider: VINCE Alcocer :1955 A ge:69 Y S ex:Female Date:02/08/2025 Address:[address] [place] [address], [place] [facility] Pcp:Jude Cao Subjective: * Chief Complaints: * [...] kidney stones-Dr Agudelo, Vertigo, Colon polyps, Hypertension, 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 * Surgical History: E P study-heart Dr [...] toe on right foot, initial encounter - F70.895U (Primary) 2 .?Anxiety, generalized - F41.1 Plan: [...] * Images: Billing Information: * Visit Code: 56476 Office Visit, Est Pt., Level 4. * Procedure Codes: G2211 Complex e/m visit add on. 3077F SYST BP = 140 MM HG6 IT. 3080F DIAST BP = 90 MM HG. * Electronic signature of VINCE Barahona on 07/20/2025 at 09:13 AM EDT Sign off status: Pending * Provider: VINCE Alcocer Date: 0 02/08/2025 Generated for Shanda romo/Lazaro/Papoitting on: 0 07/20/2025 09:13 AM EDT History and Physical Notes * [...]
--- OUTSIDE RECORDS SUMMARY | 2025-06-29 06:00 | XMS_ITS ---
Author Organization [facility] Address [address] [facility] [address] [address] [facility] [address] [place] [phone] Care Team Providers Care Car Racer Name Role Phone Jude Cao Primary Care Provider [phone] Octavia Sheikh Unavailable [phone] Allergies Allergen (clinical drug ingredient) Drug/Non Drug Allergy documented on EMR Reaction Allergy Type Onset Date Status amoxicillin / clavulanate Augmentin shaking Drug Allergy Active Levaquin achilles tendon swells up Drug Allergy Active REASON FOR VISIT Annual Wellness visit-Medicare Medications [...] 90 days Active Vitamin D 50 MCG (1999) 1 capsule Ora lly Once a day; Duration: 30 day(s) Active MiraLax 17 GM/SCOOP as directed Orally Active Glucosamine Chondroitin MSM - as directed Orally Active Bisoprolol Fumarate 5 MG 1 tablet Orally Once a day; Duration: 90 days Active Mupirocin 2 % 1 application Jewel Oliving 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 ally once a day 06/29/2025 Active Montelukast [...] 06/29/2025 Encounters Encounter Location Date Provider Diagnosis [facility] [address] [place], [place] [phone] 06/29/2025 Octavia Sheikh Adult general medica l [...] 90 days Mupirocin 2 % 1 application Jewel Oliving 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 ally once a day 06/29/2025 Montelukast Sodium [...] assessment, Depression screening and Bladder control screening. 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 * Surgical History: E [...] daily , Taking Vitamin D 50 MCG (1999 UT) Capsule 1 capsule Orally Once a [...] 3. I fidel deficiency L AB: H-Ferritin L AB: H-Iron 4. D yslipidemia Refill Atorvastatin Calcium Tablet, 10 MG, take 1 tablet by mouth once daily, Orally, once daily, 90 days, 90, Refills 3. 5. A llergic rhinitis, unspecified seasonality, unspecified trigger Refill Montelukast Sodium Tablet, 10 MG, take 1 tablet by mouth once daily, Orally, once daily, 90 days, 90, Refills 3. 6. N linsey sore Start Mupirocin Ointment, 2 %, 1 application, Externally, once a day, 1, Refills 2. 7. A bnormal thyroid blood test L AB: H-TSH L AB: H-T4 free 8. E levated liver enzymes L AB: H-CMP 9. V itamin D deficiency L AB: H-VITAMIN D * Immunizations: Prevnar (PCV20) : 0.5 mL (Route: Intramuscular) given by CAROLYN Desai , Dredge Mechanic on Left Deltoid (Adult general medical examination) [...] * Images: Billing Information: * Visit Code: 07269 Office Visit, Est Pt., Level 3. Modifiers: 25 * Procedure Codes: G[address] [facility] P[facility]IT. G2211 Complex e/m [...] Alcocer Date: 0 06/29/2025 Generated for Shanda romo/Lazaro/eTransmitting on: 0 07/20/2025 09:13 AM EDT History and Physical Notes * HPI (History of Present Illness) Category Sub-Category Detail Notes Category Not es ENT/respiratory sore throat cough small amount of whit e sputum HPI Patient is here today for a [facility] Annual Wellness Visit. Pt is not fasting [...]
--- OUTSIDE RECORDS SUMMARY | 2025-07-20 09:13 | XMS_ITS | Encounter Summary ---
Author Organization Healthcare Address [address] [place] [address] Care Team Providers Care Professor Of Economics Name Role Phone Sourav Cao MD Primary Care Provider [phone] Encounter Details Date Type Department Care Team (Late Contact Info) Description 12/07/2024 Orders Only External Location [address] [place] [address] Provider, External Social History Tobacco Use Types Packs/Day Years Used Date Smoking Tobacco: Never Smokeless Tobacco: Never Alcohol Use Standard Drinks/Week Comments Yes 1 (1 standard drink = 0.6 oz pur e alcohol) PHQ-2 Answer Date Recorded Patient Health Questionnaire-2 Score 0 08/17/2024 PHQ-2A Answer Date Recorded Depression Risk 0 08/17/2024 Comments No Sex and Gender Information Value Date Recorded Sex Assigned at Not on file Legal Sex Female 7:42 PM EDT Gender Identity Not on file Sexual Orientation Not on file documented as of this encounter Plan of Treatment Upcoming Encounters Date Type Department Care Team (Late Contact Info) Description 11/01/2025 9:40 AM EST Appointment [facility] [address] [place] [address] 11/01/2025 9:40 AM EST Office Visit [facility] [address], [address] [place] [address] Ronit Quinn PA [address] [place] [address] [place] [address] 01/23/2026 8:00 AM EST Office Visit [facility] [address] [place] [address] (1), [employer] Fellow documented as of this encounter Procedures Procedure Name Priority Date/Time Associated Diagnosis Comments MR NEURO OUTSIDE IMAGES 12/07/2024 3:41 PM EST documented in this encounter Results * MR NEURO OUTSIDE IMAGES (12/07/2024 3:41 PM EST) Anatomical Region Laterality Modality Magnetic Resonan ce 12/07/2024 3:41 PM EST us External Provider IMG MRI PROCEDURES Final Resul t documented in this encounter Visit Diagnoses Not on filedocumented in this encounter Additional Health Concerns Assessment Noted Time A fall risk assessment has been complete d for the patient 08/17/2024 11:08 AM EDT A Body Mass Index follow-up plan has been documented for the patient 08/17/2024 11:31 AM EDT documented as of this encounter Care Teams Professor Of Economics Relationship Specialty Start Date End Date Sourav Cao MD [address] [place] [address] PCP - General 08/11/22 documented as of this encounter
--- OUTSIDE RECORDS SUMMARY | 2025-07-20 09:13 | XMS_ITS ---
Author Organization Unknown Results OrderDate OrderTestName ResultName ResultDate Value Units Range AbnormalFlag ResultStatus ObservationNotes TestCode ResultCode DateRecorded AccessionNumber DiagnosticSectionCode DiagnosticSectionName Sequence Interpretation Cust om 07/27/2024 00:00:00 Covid test (in house) Result: [id number]:00:00 Neg Reviewed Kylee Tellez 07/27/2024 12:47:33 PM > , Provider reviewed results while patient in office. Covid test (in house) 07/27/2024 00:00: 00:00:69F-LchrHC7768-71SityIR7321-85-23D69:00:94598fc/sK78-381 - ug/dLRevieweOctavia Saeed 07/28/2024 12:15:27 PM > see TE Coding H-Iron 07/27/2024 00:00: 00:00:25N-IvtdmrgeBPC8270-40PtgdixjgARR2916-96-39G89:00:03932hz/ml 11.1-264 - ng/mlRevieweOctavia Saeed 07/28/2024 12:15:27 PM > see TE Coding H-Ferritin 07/27/2024 00:00: 00:00:98X-LCSUSC7173-73OGMOOY3728-71-70S00:00:0098U/L38-126 - U/LRevieweOctavia Saeed 07/28/2024 12:15:27 PM > see TE Coding H-CMP 07/27/2024 00:00: 00:00:11Q-ZTDLBIIZEG3995-46SHPEFJRRXF5531-50-15R85:00:001.71.1-1.8 -ReviewedOctavia Sheikh 07/28/2024 12:15:27 PM > see TE Coding H-CMP 07/27/2024 00:00: 00:00:65R-LHFQNPK4109-23NKTCXCH7323-67-43K89:00:002.5g/dL1.3-3.2 - g/dLVinceOctavia Sandra 07/28/2024 12:15:27 PM > see TE Coding H-CMP 07/27/2024 00:00: 00:00:39C-FEIKWZ9447-68ASRBLE7646-19-63H97:00:004.2g/dl3.5-5.0 - g/dlVinceMukulpeggy Flores 07/28/2024 12:15:27 PM > see TE Coding H-CMP 07/27/2024 00:00: 00:00:89U-MRIYI0079-61YUUWV7645-64-92F48:00:006.7g/dl6.3-8.2 - g/dlVinceOctavia S 07/28/2024 12:15:27 PM > see TE Coding H-CMP 07/27/2024 00:00: 00:00:36E-NEDSSR8154-11NZQDBV7484-47-22W15:00:0018U/L12-78 - U/MalvinOctavia S 07/28/2024 12:15:27 PM > see TE Coding H-CMP 07/27/2024 00:00: 00:00:29G-NEZSAJ8517-09SIZWRB3546-85-30O86:00:0022U/L14-36 - U/MalvinOctavia S 07/28/2024 12:15:27 PM > see TE Coding H-CMP 07/27/2024 00:00: 00:00:79R-QSXDIFUG0885-47VRBYVNDT4387-13-88X31:00:000.6mg/dl0.2- 1.3 - mg/dlVinceOctavia S 07/28/2024 12:15:27 PM > see TE Coding H-CMP 07/27/2024 00:00: 00:00:73C-YYRSY0812-47YNHZM1661-24-23I03:00:009.7mg/dl8.4-10.2 - mg/dlVinceOctavia 07/28/2024 12:15:27 PM > see TE Coding H-CMP 07/27/2024 00:00: 00:00:06G-IZFONP3277-61MXSMZF2579-33-32K37:00:0088mg/pq67-797 - mg/dlVinceOctavia 07/28/2024 12:15:27 PM > see TE Coding H-CMP 07/27/2024 00:00: 00:00:62V-OOWCBOY7250-81CNMISWA0118-17-46I47:00:0083ml/min>60 - ml/minVinceOctavia 07/28/2024 12:15:27 PM > see TE Coding H-CMP 07/27/2024 00:00: 00:00:12D-WYQRXHHN1748-20OFZDKOZB5522-66-79L56:00:30274EV/MIN>60 - ML/MINVinceOctavia 07/28/2024 12:15:27 PM > see TE Coding H-CMP 07/27/2024 00:00: 00:00:68V-CTEMZCMTJ1827-38JMGKYBJBQ0727-78-16X28:00:000.70mg/dl 0.52-1.04 - mg/dlVinceOctavia Sandra 07/28/2024 12:15:27 PM > see TE Coding H-CMP 07/27/2024 00:00: 00:00:12Q-YQNUTJ7395-25FPYDAV2952-32-66D58:00:0010mg/dl7-17 - mg/dlVinceOctavia 07/28/2024 12:15:27 PM > see TE Coding H-CMP 07/27/2024 00:00: 00:00:44Y-CPLPSL8413-73COJNKG3204-38-75O28:00:009.1mEq/L5-15 - mEq/LRevlottiedClatoyaOctavia S 07/28/2024 12:15:27 PM > see TE Coding H-CMP 07/27/2024 00:00: 00:00:99O-NLYJL42520-21LFODV65813-62-39D73:00:0025mmol/L22.0- 30.0 - mmol/LRevJaimeOctavia S 07/28/2024 12:15:27 PM > see TE Coding H-CMP 07/27/2024 00:00: 00:00:35M-VYEQA4247-20LNYLO9086-34-89T14:00:86913jqqq/L98-107 - mmol/LRLidyaOctavia S 07/28/2024 12:15:27 PM > see TE Coding H-CMP 07/27/2024 00:00: 00:00:43A-CDTR0530-33PBMA5885-93-63R51:00:004.1mmoL/L3.5-5.1 - mmoL/LRevJaimeOctavia S 07/28/2024 12:15:27 PM > see TE Coding H-CMP 07/27/2024 00:00: 00:00:68W-EQAVO1603-03PQSJH0015-32-42W67:00:46996ytoz/H433-042 - mmol/MalvinOctavia 07/28/2024 12:15:27 PM > see TE Coding H-CMP 07/27/2024 00:00: 00:00:00H-Lipid EapsqXBVLWS2475-40-59C70:00:002.7 1-3.5 -ReviewedCrowshiraOctavia S 07/28/2024 12:15:27 PM > see TE Coding H-Lipid Panel 07/27/2024 00:00: 00:00:00H-Lipid OfokbMOA9275-97-59B40:00:0056mg/dl 40-60 - mg/dlReMaylinOctavia Sandra 07/28/2024 12:15:27 PM > see TE Coding H-Lipid Panel 07/27/2024 00:00: 00:00:00H-Lipid TryfnYFOU9336-56-46U33:00:0018 mg/dL0-40 - mg/dLVinceOctavia 07/28/2024 12:15:27 PM > see TE Coding H-Lipid Panel 07/27/2024 00:00: 00:00:00H-Lipid DfcaaYQTI2207-15-28C28:00:0062.31 mg/nN330-141 - mg/dLLRLidyaOctavia 07/28/2024 12:15:27 PM > see TE Coding H-Lipid Panel 07/27/2024 00:00: 00:00:00H-Lipid ZatkdEIHV1933-06-49K27:00:62901 mg/ns318-665 - mg/dlVinceOctavia 07/28/2024 12:15:27 PM > see TE Coding H-Lipid Panel 07/27/2024 00:00: 00:00:00H-Lipid NodtbDOZD1410-80-20G00:00:0091 mg/lw44-252 - mg/dlVinceOctavia Sandra 07/28/2024 12:15:27 PM > see TE Coding H-Lipid Panel 07/27/2024 00:00: 00:00:00H-VITAMIN GEZWTP4833-10-25U64:00:0060.0 ng/aW51-795 - ng/mLRevJaimeOctavia 07/28/2024 12:15:27 PM > see TE Coding H-VITAMIN D 07/27/2024 00:00: 00:00:91U-XJXQXE2749-95LUPUXP4136-81-87Y55:00:001.37uIU/mL 0.465-4.68 - uIU/mLRLidyaOctavia Sandra 07/28/2024 12:15:27 PM > see TE Coding H-TSH 07/27/2024 00:00: 00:00:00CBC Fingerstick (in house)[facility] 2387-97-01F36:00:42723048 - 400ReviewedKing,[facility] 07/27/2024 11:25:39 AM > , Provider reviewed results while patient in office. Coding CBC Fingerstick (in house) 07/27/2024 00:00: 00:00:00CBC Fingerstick (in house)[facility] 6020-98-14M60:00:0033.331 - 38ReviewedKing,[facility] 07/27/2024 11:25:39 AM > , Provider reviewed results while patient in office. Coding CBC Fingerstick (in house) 07/27/2024 00:00: 00:00:00CBC Fingerstick (in house)[facility] 9416-00-27O12:00:0030.225 - 35ReviewedKing,[facility] 07/27/2024 11:25:39 AM > , Provider reviewed results while patient in office. Coding CBC Fingerstick (in house) 07/27/2024 00:00: 00:00:00CBC Fingerstick [place] house[place] 9126-54-28R12:00:0090.675 - 100ReviewedKing,[facility] 07/27/2024 11:25:39 AM > , Provider reviewed results while patient in office. Coding CBC Fingerstick (in house) 07/27/2024 00:00: 00:00:00CBC Fingerstick (in house)hct 2051-57-12J93:00:0043.135 - 55ReviewedKing,[facility] 07/27/2024 11:25:39 AM > , Provider reviewed results while patient in office. Coding CBC Fingerstick (in house) 07/27/2024 00:00: 00:00:00CBC Fingerstick (in house)hgb 8462-98-00E32:00:0014.411.5 - 16.5ReviewedKing,[facility] 07/27/2024 11:25:39 AM > , Provider reviewed results while patient in office. Coding CBC Fingerstick (in house) 07/27/2024 00:00:00007/27/2024 00:00:00CBC Fingerstick (in house)rbc 2493-54-84I31:00:004.763.5 - 5.5ReviewedKing,[facility] 07/27/2024 11:25:39 AM > , Provider reviewed results while patient in office. Coding CBC Fingerstick (in house) 07/27/2024 00:00: 00:00:00CBC Fingerstick (in house)gran 4449-25-06O06:00:0050.5%35 - 80ReviewedKing,[facility] 07/27/2024 11:25:39 AM > , Provider reviewed results while patient in office. Coding CBC Fingerstick (in house) 07/27/2024 00:00: 00:00:00CBC Fingerstick (in house)mid 4741-65-05V71:00:008.2%2 - 15ReviewedKing,[facility] 07/27/2024 11:25:39 AM > , Provider reviewed results while patient in office. Coding CBC Fingerstick (in house) 07/27/2024 00:00: 00:00:00CBC Fingerstick (in house)lym 3430-51-62I12:00:0041.3%15 - 50ReviewedKing,[facility] 07/27/2024 11:25:39 AM > , Provider reviewed results while patient in office. Coding CBC Fingerstick (in house) 07/27/2024 00:00: 00:00:00CBC Fingerstick (in house)wbc 0699-80-00W27:00:005.23.5 - 10ReviewedKing,[facility] 07/27/2024 11:25:39 AM > , Provider reviewed results while patient in office. Coding CBC Fingerstick (in house) 07/27/2024 00:00: 00:00:20K-QWDXD-DBQR7621-09-13T00:00:31074ls/mL. - pg/mLRevieweOctavia Saeed 08/08/2024 10:08:49 PM > who ordered this?Vianney Graham 08/10/2024 2:35:24 PM >Looks like it was an add on or ordered by a different physicianOctavia Sheikh 08/16/2024 3:58:11 PM> Not ordered by our office Coding C-TELO 07/28/2024 00:00: 00:00:00H-Renal Function PanelPHOS 1769-81-04S18:00:003.5mg/dl2.5-4.5 - mg/dlOctavia Clarke 07/28/2024 12:15:27 PM > see TE Coding H-Renal Function Panel 07/28/2024 00:00: 00:00:00Covid test (in house)Result: 5138-25-35U43:00:00NegReCandy Bradshaw 12/08/2024 10:36:13 AM > , Provider reviewed results while patient in office.Octavia Sheikh 12/08/2024 1:30:06 PM > Coding Covid test (in house) 12/08/2024 00:00: 00:00:00CBC Fingerstick (in house)[facility] 4074-71-47Y56:00:24163993 - 400Jackelyn Howard 12/08/2024 10:26:23 AM > , Provider reviewed results while patient in office.Octavia Sheikh 12/08/2024 1:29:55 PM > Coding CBC Fingerstick (in house) 12/08/2024 00:00: 00:00:00CBC Fingerstick (in house)[facility] 1846-18-71N33:00:0033.631 - 38Jackelyn Howard 12/08/2024 10:26:23 AM > , Provider reviewed results while patient in office.Octavia Sheikh 12/08/2024 1:29:55 PM > Coding CBC Fingerstick (in house) 12/08/2024 00:00: 00:00:00CBC Fingerstick (in house)[facility] 8028-51-79J74:00:0030.425 - 35RevieweLizaJackelyn 12/08/2024 10:26:23 AM > , Provider reviewed results while patient in office.Octavia Sheikh 12/08/2024 1:29:55 PM > Coding CBC Fingerstick (in house) 12/08/2024 00:00: 00:00:00CBC Fingerstick (in house)mcv 9693-66-26I82:00:0090.675 - 100RevieweLizaParkview Health 12/08/2024 10:26:23 AM > , Provider reviewed results while patient in office.Octavia Sheikh 12/08/2024 1:29:55 PM > Coding CBC Fingerstick (in house) 12/08/2024 00:00: 00:00:00CBC Fingerstick (in house)[facility] 9708-69-51K78:00:0042.735 - 55RevieweLizaParkview Health 12/08/2024 10:26:23 AM > , Provider reviewed results while patient in office.Octavia Sheikh 12/08/2024 1:29:55 PM > Coding CBC Fingerstick (in house) 12/08/2024 00:00: 00:00:00CBC Fingerstick (in house)hgb 2041-88-47U32:00:0014.311.5 - 16.5ReviewedHkennyParkview Health 12/08/2024 10:26:23 AM > , Provider reviewed results while patient in office.Octavia Sheikh 12/08/2024 1:29:55 PM > Coding CBC Fingerstick (in house) 12/08/2024 00:00: 00:00:00CBC Fingerstick (in house)rbc 2581-08-60I04:00:004.713.5 - 5.5ReviewedHouOhio Valley Surgical Hospital 12/08/2024 10:26:23 AM > , Provider reviewed results while patient in office.Octavia Sheikh 12/08/2024 1:29:55 PM > Coding CBC Fingerstick (in house) 12/08/2024 00:00: 00:00:00CBC Fingerstick (in house)[facility] 3244-18-18J89:00:0054.435 - 80[facility] 12/08/2024 10:26:23 AM > , Provider reviewed results while patient in office.Octavia Sheikh 12/08/2024 1:29:55 PM > Coding CBC Fingerstick (in house) 12/08/2024 00:00: 00:00:00CBC Fingerstick (in house)mid 0371-42-12G12:00:008.42 - 15ReJudahOhio Valley Surgical Hospital 12/08/2024 10:26:23 AM > , Provider reviewed results while patient in office.Octavia Sheikh 12/08/2024 1:29:55 PM > Coding CBC Fingerstick (in house) 12/08/2024 00:00: 00:00:00CBC Fingerstick (in house)lym 5915-47-32Z82:00:0037.215 - 50ReviewemichaelOhio Valley Surgical Hospital 12/08/2024 10:26:23 AM > , Provider reviewed results while patient in office.Octavia Sheikh 12/08/2024 1:29:55 PM > Coding CBC Fingerstick (in house) 12/08/2024 00:00: 00:00:00CBC Fingerstick (in house)wbc 4005-77-66C56:00:006.63.5 - 10RevieweBucyrus [facility] 12/08/2024 10:26:23 AM > , Provider reviewed results while patient in office.Octavia Sheikh 12/08/2024 1:29:55 PM > Coding CBC Fingerstick (in house) 12/08/2024 00:00: 00:00:00Influenza Screen (in house)results 5930-36-04G55:00:00NegReCandy Bradshaw 12/08/2024 10:35:57 AM > , Provider reviewed results while patient in office.Octavia Sheikh 12/08/2024 1:30:14 PM > Coding Influenza Screen (in house) 12/08/2024 00:00:00
--- OUTSIDE RECORDS SUMMARY | 2025-07-20 09:13 | XMS_ITS | Clinical Summary ---
Author Organization [facility] [address] Address [address] [place] [address] Care Team Providers Care Medical Case Manager Name Role Phone Sourav Cao MD Primary Care Provider Family History Medical History Relation Name Comments Breast cancer Maternal Aunt 1 Breast cancer Maternal Aunt 2 GREAT DX AGE UN[place] OWN Breast cancer Maternal Grandmother Ovarian cancer Neg Hx Relation Name Status Comments Maternal Aunt 1 Maternal Aunt 2 GREAT Maternal Grandmother Social History Tobacco Use Types Packs/Day Years Used Date Smoking Tobacco: Never Assessed Abuse Screen Answer Date Recorded Unsafe at Home or Work/School Not on file Feels Threatened by Someone? Not on file 07/2023 Does Anyone Keep You from Co ntacting Others or Doint Things Outside the Home? Not on file 08/31/2023 Physical Sign of Abuse Present Not on file 1 Housing Stability Answer Date Recorded Current Living Arrangements Not on file 07/2023 Potentially Unsafe Housing Conditions Not on liane e 08/31/2023 Family and Community Support Answer Gabriele e Recorded Help with Day-to-Day Activities Not on file 08/31/2023 Lonely or Isolated Not on file 08/31/2023 Employment Answer Date Recorded Do you want help finding or keeping work or a mitchell b? Not on file 08/31/2023 Disabilities Answer Date Recorded Concentrating, Remembering, or Making Decisions Difficulty Not on file 08/31/2023 Doing Errands Independently Difficulty Not on fi le 08/31/2023 Education Answer Date Recorded Help with school or training? Not on file Preferred Language Not on file 08/31/2023 Comments No Sex and Gender Information Value Date Recorded Sex Assigned at Not on file Legal Sex Female 12:07 PM EDT Gender Identity Not on file Sexual Orientation Not on file Plan of Treatment Upcoming Encounters Date Type Department Care Team (Late st Contact Info) Description 09/13/2025 9:00 AM EDT Appointment [facility] [place] [address] Health Maintenance Due Date Last Done Comments ANNUAL WELLNESS VISIT 1955 HEPATITIS C SCREENING 1954 TDAP/TD VACCINES (1 - Tdap) 1973 COLOGUARD 1999 COLON CANCER SCREENING 5 YEA R SIGMOIDOSCOPY 1999 COLONOSCOPY 1999 [address] CANCER SCREENING 1999 CT COLONOGRAPHY 1999 FECAL OCCULT BLOOD TEST 1999 FIT Testing (1 year) 1999 Pneumococcal Vaccine 50+ (2 of 2 - PPSV23) 05/04/2021 05/04/2020 COVID-19 Vaccine (5 - 2023-2 5 season) 2024 01/21/2023, 09/25/2021, 02/27/2021, Additional history exists INFLUENZA VACCINE 08/23/2025 09/03/2023, , 08/30/2020 DXA SCAN 08/17/2026 08/17/2024, 07/25, 08/12/2023, Additional history exists MAMMOGRAM 09/12/2026 09/12/2024, 08/23, 09/10/2023, Additional history exists ZOSTER VACCINE Completed 08/06/2021, 05/07/2021 Procedures Procedure Name Priority Date/Time Associated Diagnosis Comments MAMMO SCREENING DIGITAL TOMOSYNTHESIS BILATERAL W CAD Routine 09/12/2024 10:22 AM EDT Screening mammogram for breast cancer from Last 3 Months or Most Recently Relevant to Health Maintenance Results * Mammo Screening Digital Tomosynthesis Bilateral With CAD (09/12/2024 10:22 AM EDT) Anatomical Region Laterality Modality Breast N/A Mammography 09/18/2024 6:43 PM EDT Impressions 09/18/2024 6:44 PM EDT No findings suspicious for malignancy. ACR BI-RADS CATEGORY: 1, NEGATIVE RECOMMENDATION: Yearly mammogram, yearly clinical breast exam, and encourage self breast awareness. CAD was used. The standard false negative rate of mammography is between 10% and 25%. Complex patterns or increased breast density will markedly elevate the false negative rate of mammography. A letter, in lay terminology, with the results of this exam will be mailed to the patient. If there is a palpable area of concern, biopsy should be considered regardless of imaging findings. This report was finalized on 09/18/2024 6:44 PM by Michelle Davidson MD. Narrative 09/18/2024 6:44 PM EDT ROUTINE DIGITAL SCREENING MAMMOGRAM WITH TOMOSYNTHESIS HISTORY: Routine screening. IMAGE COMPARISON: Extending to 2020. TECHNIQUE: Low dose full field digital breast tomosynthesis imaging was performed with 2D and 3D acquisitions consisting of bilateral CC and MLO views. FINDINGS: There are scattered fibroglandular densities. The fibroglandular pattern appears stable. There is no mass, worrisome microcalcifications, or architectural distortion to suggest development of malignancy. us Eloise Rodriguez MD IMG MAMMOGRAPHY ORDERABLES Final Result from Last 3 Months or Most Recently Relevant to Health Maintenance Insurance [facility] Medicare [employer]vantage [employer] PPO Care Teams Medical Case Manager Relationship Specialty Start Date End Date Sourav Cao MD [address] [facility] [address] [place] [id number] PCP - General Family Medicine 06/28/18
--- OUTSIDE RECORDS SUMMARY | 2025-07-20 09:14 | XMS_ITS | Patient Health Record ---
Author Organization [facility] Address [address] [facility] [address] [place] [address] Care Team Providers Care [employer] Director Name Role Phone Eloise Rodriguez Unavailable [phone] Allergies Allergen (clinical drug ingredient) Drug/Non Drug Allergy documented on EMR Reaction Allergy Type Onset Date Status AUGMENTIN (AMOXICILLIN-POT CLAVULANATE TABS) shakes Drug Allergy 04/28/2018 Active LEVAQUIN (LEVOFLOXACIN TABS) Unspecified Drug Allergy 04/28/2018 Active sulfa antibiotic rash hives Drug Allergy Active Results Component Value Reference Range Notes MAMMO SCREENING DIGITAL TANISHA SYNTHESIS BILATERAL W CAD Reviewed date:09/18/2024 07:05:24 PM Interpretation: Performing Lab: Notes/Report: ROUTINE DIGITAL SCREENING MAMMOGRAM WITH TOMOSYNTHESIS HISTORY: Routine screening. IMAGE COMPARISON: Extending to 2020. TECHNIQUE: Low dose full field digital breast tomosynthesis imaging was performed with 2D and 3D acquisitions consisting of bilateral CC and MLO views. FINDINGS: There are scattered fibroglandular densities. The fibroglandular pattern appears stable. There is no mass, worrisome microcalcifications, or architectural distortion to suggest development of malignancy. No findings suspicious for malignancy. ACR BI-RADS [...] 09/18/2024 6:44 PM by Michelle Davidson MD. Signed by: Michelle Davidson on 09/18/2024 6:44 PM No problems + 4 lbs Reason for Exam:->z12.31 Reason For Referral No Information Medications Medication SIG (Take, Route, Frequency, Duration) Notes Start Date End Date Status Clobetasol Propionate 0.05 % Cream 1 application Externally Twice a day; Duration: 14 days Active Famotidine Active Lipitor Active MiraLax Active Triamterene Not-Taki ng/PRN Amoxicillin Active Bisoprolol Fumarate Active Fluticasone Furoate 07/13/2024 Active Prolia 60 MG/ML Solution Prefilled Syringe as directed Subcutaneous Active Singulair Active Flonase Not-Taking /PRN Social History Tobacco Use: Social History Observation Description Date Details (start date - stop date) Never Smoker NA - NA Social History Drugs/Alcohol: Social Info Question Answer Notes Drugs Have you used drugs other than those for medical reasons in the past 12 months? No Alcohol Screen Did you have a drink containing alcohol in the past year? Yes How often did you have a drink containing alcohol in the past year? Monthly or less (1 point) How many drinks did you have on a typical day when you were drinking in the past year? 1 or 2 drinks (0 point) How often did you have 6 or more drinks on one occasion in the past year? Never (0 point) Points 1 Interpretation Negative Tobacco Use: Social Info Question Answer Notes Tobacco Use/Smoking Are you a nonsmoker Problems Problem Type SNOMED Code ICD Code Onset Dates Problem Status W/U Status Risk Notes Problem Pessary care (regime/therapy) (904320027) Encounter for pessary maintenance (Z46.89) Active confirmed Problem Complete uterine prolapse (69420583) Complete uterine prolapse (N81.3) Active confirmed Problem Midline cystocele (195988400) Midline cystocele (N81.11) Active confirmed Problem Gynecological examination normal (548175135023585 ) Cervical smear, as part of routine gynecological examination (Z01.419) 08/02/20 20 Active confirmed Annual without abnormal findings Problem Lichen sclerosus (086005909) Lichen sclerosus (L90.0) Active confirmed Plan Of Treatment No Information Insurance Providers Payer Name Payer Address Payer Phone Subscriber Number Group Number Insured Name Patient Relationship to Insured Coverage Start Date Coverage End Date [employer] [address] [address] [place], [place] [id number] Reba Arita Self - patient is the insured Medical (General) History Medical History History ICD Code basal cell carcinoma osteoporosis osteoarthritis fracture of foot 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
--- OUTSIDE RECORDS SUMMARY | 2025-07-20 09:14 | XMS_ITS | Clinical Summary ---
Author Organization Healthcare Address [address] [place] [address] Care Team Providers Care Toolroom Keeper Name Role Phone Sourav Cao MD Primary Care Provider [phone] Allergies Active Allergy Reactions Criticality Noted Date Comments Amoxicillin-Pot Clavulanate Other - please document in the comment field Low 02/13/2016 Extreme shaking Sulfamethoxazole-Trimet hoprim Hives Medium 12/03/2023 Levofloxacin Other - please document in the comment field Low 02/13/2016 Achilles tendon pain Sulfa Drugs Hives Medium 02/09/2024 Medications atorvastatin (Lipitor) 10 MG tablet Take 1 tablet (10 mg) by mouth nightly. 05/07/20 21 Active bisoprolol (Zebeta) 5 MG tablet Take 1 tablet (5 mg) by mouth nightly. 03/21/20 19 Active cholecalciferol (Vitamin D-3) 50 MCG (2000 UT) capsule 2,800 Units 1 (one) time each day. 08/13/20 20 Active montelukast (Singulair) 10 MG tablet Take 1 tablet (10 mg) by mouth nightly. 05/07/20 21 Active polyethylene glycol (Miralax) 17 g packet Take 17 g by mouth as needed. Active alpha tocopherol (Vitamin E) 400 units capsule Take 1 capsule (400 Units) by mouth 2 (two) times a day. Active meclizine (Antivert) 12.5 MG tablet 3 (three) times a day if needed. 12/28/19 22 Active famotidine (Pepcid) 20 MG tablet Take 1 tablet (20 mg) by mouth nightly. Active denosumab (Prolia) 60 MG/ML injection Inject 1 mL (60 mg) under the skin 1 (one) time for 1 dose. 1 mL 08/20/20 23 Active glucosamine-chondr oitin 500-400 MG tablet Take 1 tablet by mouth 2 (two) times a day. Active ondansetron ODT (Zofran-ODT) 4 MG disintegrating tablet Take 1 tablet (4 mg) by mouth every 8 (eight) hours if needed for nausea or vomiting. 10 tablet 5 03/09/20 24 Active Azelastine-Flutica sone 137-50 MCG/ACT suspension 07/27/20 24 Active Chondroitin Sulfate 150 MG capsule Take 1,200 mg by mouth twice a day. Active alpha tocopherol (Vitamin E) 100 units capsule 2 (two) times a day. Active sertraline (Zoloft) 25 MG tablet Take 1 tablet (25 mg) by mouth Daily. Active hydrOXYzine HCl (Atarax) 25 MG tablet 12/19/19 25 Active diazePAM (Valium) 5 MG tablet 01/16/20 25 Active sertraline (Zoloft) 12.5 MG split tablet 11/24/19 25 Active clobetasol (Temovate) 0.05 % cream Apply 1 Application topically 2 (two) times a day. 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 I'm bringing a disc with MRI on it with me. Vaginal atrophy 12/07/2023 Osteoporosis 08/12/2023 Hyperparathyroidism 01/06/2014 Vitamin D deficiency 01/06/2014 Stress fracture 01/05/2013 Resolved Problems Problem Noted Date Diagnosed Date Resolved Date Complete uterine prolapse 03/10/2024 Prolapse of female pelvic organs 03/09/2024 03/09/2024 Complete uterine prolapse 12/07/2023 POP-Q stage 4 cystocele 12/07/202302/21 POP-Q stage 4 rectocele 12/07/202302/21 Immunizations Immunization Administration Dates Next Due Hep A, ped/adol, 2 dose 05/06/2019,10/04/2018 Influenza Vaccine, Quadrivalent, Adjuvanted 08/23,09/12/2022 Influenza, trivalent, adjuvanted 09/12/2024,1006/2020 Pneumococcal Conjugate PCV 13 05/04/2020 Rsv, Bivalent, Protein Subun it Rsvpref, Diluent Reconstituted, 0.5mL, PF 11/24/2023 Zoster, Recombinant 08/06/2021,05/07/2021 Family History Medical History Relation Name Comments Coronary artery disease Father My mother Hypertension Father My mother Osteoarthritis Father My mother Cancer Maternal Grandmother Maribeth sadler Arthritis Mother Melanie humphries Asthma Mother Melanie humphries Hypertension Mother Melanie humphries Osteoarthritis Mother Melanie humphries Cancer Other 1 Osteoporosis Other 2 Relation Name Status Comments Father My mother Maternal Grandmother Maribeth sadler Mother Melanie humphries Other 1 Other 2 Social History Tobacco Use Types Packs/Day Years Used Date Smoking Tobacco: Never Smokeless Tobacco: Never Tobacco Cessation:Counseling Given: Not Answered Alcohol Use Standard Drinks/Week Comments Not Currently 1 (1 standard drink = 0.6 oz pur e alcohol) PHQ-2 Answer Date Recorded Patient Health Questionnaire-2 Score 0 08/17/2024 PHQ-2A Answer Date Recorded Depression Risk 0 08/17/2024 Comments No Sex and Gender Information Value Date Recorded Sex Assigned at Not on file Legal Sex Female 7:42 PM EDT Gender Identity Not on file Sexual Orientation Not on file Last Filed Vital Signs Vital Sign Reading Time Taken Comments Blood Pressure 175/102 01/20/2025 7:56 AM EST Pulse 73 01/20/2025 7:56 AM EST Temperature 36.5 C (97.7 F) 12/23/2024 11:31 AM EST Respiratory Rate 18 08/17/2024 11:04 AM EDT Oxygen Saturation 100% 12/23/2024 11:31 AM EST Inhaled Oxygen Concentration - - Weight 67.4 kg (148 lb 9.4 oz) 01/20/2025 7:56 A M EST Height 162.6 cm (5' 4 ) 01/20/2025 7:56 AM EST Body Mass Index 25.51 01/20/2025 7:56 AM EST Plan of Treatment Upcoming Encounters Date Type Department Care Team ([facility] st Contact Info) Description 11/01/2025 9:40 AM EST Appointment Professional [facility] [address] [facility] [address], [address] [place] [address] 11/01/2025 9:40 AM EST Office Visit Professional [facility] [address] [facility], [address] [place] [address] Ronit Quinn PA [address] [facility] [place] [address] 01/23/2026 8:00 AM EST Office Visit [facility] [address] [place] [address] (1), [facility] Fellow Health Maintenance Due Date Last Done Comments [facility]-Hepatitis C Screening 1955 [facility]-Medicare Annual Wellness (AWV) 1955 [facility]-/Child/Adol SDOH Screenings 1954 [facility]- SDOH Screenings 1972 [facility]-Adult SDOH Screenings 1972 [facility]-DTaP,Tdap,and Td Vaccines (1 - Tdap) 1973 CT Colonography 1999 Colonoscopy 1999 FIT-DNA 1999 FIT 1999 FOBT 1999 Sigmoidoscopy 1999 [facility]-Colorectal Cancer Screening 1999 [facility]-Pneumococcal Vaccine: 50+ Years (2 of 2 - PPSV23) 05/04/2021 05/04/2020 [id number] Vaccine ( season) 2024 01/21/2023, 09/25/2021, 02/27/2021, Additional history exists [facility]-Influenza Vaccine (#1) 07/24/202509/12, 09/03/2023, 09/12/2022, Additional history exists [facility]-Bone Density Scan 08/17/2025 08/17/2024 , 08/12/2023, 08/12/2023, Additional history exists [facility]-Depression Screening 08/17/2025 08/17/2024, 07/25 [facility]-Breast Cancer Screening 09/12/202608/24, 09/12/2024, 09/10/2023, Additional history exists [facility]-Hepatitis A Vaccines Aged Out 05/06/2019, 09/23 No longer eligible based on patient's age to complete this topic [facility]-Zoster Vaccines Completed 08/06/2021, [facility]-RSV Vaccine: 60+ Years or Completed 11/24/2023 [facility]-Obesity Intervention Completed 025, 12/23/2024, 08/17/2024, Additional history exists HPV Vaccines Aged Out No longer eligi ble based on patient's age to complete this topic [facility]-HIB Vaccines Aged Out No longer e ligible based on patient's age to complete this topic [facility]-IPV Vaccines Aged Out No longer e ligible based on patient's age to complete this topic [facility]-Rotavirus Vaccines Aged Out No lo nger eligible based on patient's age to complete this topic Medical Devices Implanted Type Area [employer] Device Identifier Shelf Expiration Date Model / Serial / Lot Implant Implant Left: Hip Procedures Procedure Name Priority Date/Time Associated Diagnosis Comments DEXA BONE DENSITY Routine 08/17/2024 9:5 7 AM EDT Osteoporosis, unspecified osteoporosis type, unspecified pathological fracture presence from Last 3 Months or Most Recently Relevant to Health Maintenance Results * Dexa Bone Density (08/17/2024 9:57 AM EDT) Anatomical Region Laterality Modality L-spine Radio Fluoroscop y Narrative 08/22/2024 2:36 PM EDT [facility] [address] [place] [address] DXA Bone Densitometry Report: [08/17/2024] BMD test performed using the [employer]the[employer] DXA System (analysis version: 14.10) manufactured by [employer]. REFERRING PROVIDER: Dr. Ronit Quinn PA CLINICAL INFORMATION: osteoporosis PATIENT NAME: Reba Arita PATIENT AGE: 68 y.o. LEGAL SEX: female RADIOGRAPHIC VIEWS: Sites scanned: AP Spine, HIP Right , RADIUS Left, and TBS COMPARISON STUDY: DXA Axial 08/12/2023, DXA Extremity Prior studies are not available for comparison, and TBS 08/12/2023 FINDINGS: Based on WHO criteria (post-menopausal female) the diagnosis is Osteopenia The lowest T- score is -1.9 in the LS There is Improvement and Stability compared to prior measurements The presence of arthritic or degenerative joint changes in the spine could artefactually increase measured BMD. TBS: The TBS L1-L4 of 1.360 indicates normal microarchitecture TREATMENT RECOMMENDATIONS: Patient has received specific treatment for osteoporosis in the last year. Work up for secondary osteoporosis and metabolic bone disease could be considered based on clinical indications. Treatment decisions may be based on clinical considerations. Suggest general measures to optimize calcium and vitamin D status, fall prevention measures and reduce fracture risk. Consider repeating this study in 1 year(s) or as clinically indicated to assess bone density change or response to treatment (should be performed on the same DXA scanner to allow for direct comparison and calculation of change in BMD). Ronit CLARKE IM DXA PROCEDURES Final Res ult from Last 3 Months or Most Recently Relevant to Health Maintenance Insurance [employer] MEDICARE Advance Directives * Full Code (Latest Code Status on File) Date Activated Date Inactivated Comments 03/09/2024 1:05 PM 03/10/2024 12:55 PM Question Answer Comments Patient has decision-making capacity? Yes Care Teams Toolroom Keeper Relationship Specialty Start Date End Date Sourav Cao MD [address] [place] [address] PCP - General 08/11/22
--- OUTSIDE RECORDS SUMMARY | 2025-07-20 09:15 | XMS_ITS | Patient Health Record ---
Author [facility] Address [address] [facility] [address] [place] [id number] Care Team Providers Care Special Agent Secret Service Name Role Phone Jude Cao Primary Care Provider [phone] Octavia Sheikh Unavailable [phone] Allergies Allergen (clinical drug ingredient) Drug/Non Drug Allergy documented on EMR Reaction Allergy Type Onset Date Status amoxicillin / clavulanate Augmentin shaking Drug Allergy Active Levaquin achilles tendon swells up Drug Allergy Active Results Component Value Reference Range Notes X ray : Foot, right Reviewed date:02/10/2025 08:56:55 AM Interpretation: Performing Lab: Notes/Report: Covid test (in house) Reviewed date:12/08/2024 01:30:09 PM Interpretation: Performing Lab: Notes/Report: Result: Neg CBC Fingerstick (in house) Reviewed date:12/08/2024 [...] - 38 plat 140 100 - 400 Influenza Screen (in house) Reviewed date:12/08/2024 01:30:16 PM Interpretation: Performing Lab: Notes/Report: results Neg C-TELO Reviewed date:08/17/2024 08:40:47 AM Interpretation:Normal Performing Lab: Notes/Report: C-TELO 404 . pg/mL Reference Range: Premenopausal Women: 34 - 635 Postmenopausal Women: 34 - 1037 Performed at: [facility] [address], [place] [id number] End Trimmer: Giovanni Hyde MD, Phone: [phone] H-Renal Function Panel Reviewed date:07/28/2024 12:15:33 PM Interpretation: Performing Lab: Notes/Report: PHOS 3.5 2.5-4.5 mg/dl Covid test (in house) Reviewed date:07/27/2024 01:12:11 PM Interpretation: Performing Lab: Notes/Report: Result: Neg H-Iron Reviewed date:07/28/2024 12:15:33 PM Interpretation: Performing Lab: Notes/Report: FE 102 37-170 ug/dL H-Ferritin Reviewed date:07/28/2024 12:15:33 PM Interpretation: Performing Lab: Notes/Report: AGUSTO 253 11.1-264 ng/ml H-CMP Reviewed date:07/28/2024 12:15:33 PM Interpretation: Performing [...] AGRATIO 1.7 1.1-1.8 ALP 98 38-126 U/L H-Lipid Panel Reviewed date:07/28/2024 12:15:33 PM Interpretation: Performing Lab: Notes/Report: Patient Fasting? Y TRIG 91 30-150 mg/dl CHOL 152 140-200 mg/dl DLDL 62.31 100-129 mg/dL VLDL 18 0-40 mg/dL HDL 56 40-60 mg/dl CHLHDL 2.7 1-3.5 H-VITAMIN D Reviewed date:07/28/2024 12:15:33 PM Interpretation: Performing Lab: Notes/Report: TVITD 60.0 30-100 ng/mL Deficient <20 ng/mL Insufficient 20-30 ng/mL Sufficient 30-100 ng/mL Potential Toxicity >100 ng/mL H-TSH Reviewed date:07/28/2024 12:15:33 PM Interpretation: Performing Lab: Notes/Report: TSH 1.37 0.465-4.68 uIU/mL CBC Fingerstick (in house) Reviewed date:07/27/2024 01:12:11 [...] - 38 plat 147 100 - 400 MRI : Brain with and w/o con trast Reviewed date:12/15/2024 10:45:27 AM Interpretation:no evidence of recent infarct, pituitary cyst Performing Lab: Notes/Report: no evidence of recent infarct, pituitary cyst Reason For Referral Diagnosis 1 Heart palpitations ( R00.2) Diagnosis 2 Dizziness (R42) Diagnosis 3 Recurrent syncope (R 55) [facility] Referring Provider First Name Octavia Referring Provider Last Name Kori Referring Provider Speciality Physician Plastic Manager Referred Provider Cardiology, . Referred Provider Specialty Cardiovascul ar Disease General Notes Octavia Sheikh 2024 11:46:58 PM > Needs appt with cardiology AUDRA.Em Brynn 11/25/2024 8:37:22 AM > faxed to [facility] Em Mensah Brynn 11/29/2024 11:30:11 AM > 11/29/2024 at 02:00pm Referral Priority Routine Reason patient needs to see Dr. Wu Diagnosis 1 Vertigo (R42) [facility] Referring Provider First Name Octavia Referring Provider Last Name Kori Referring Provider Speciality Physician Plastic Manager Referred Provider Specialty ENT General Notes Magi Strickland 12/15/19 25 10:52:03 AM > 01/16/2025 at 01:10 pm; pushed out to December because he is only here twice a month; patient informed Referral Priority Routine Medications Medication SIG (Take, Route, Frequency, Duration) Notes Start Date End Date Status Bisoprolol Fumarate 5 MG 1 tablet Orally Once a day; Duration: 90 days Active Famotidine 20 MG 1 tab(s) orally [...] a day; Duration: 90 days 02/08/2025 Active Vitamin D 50 MCG (2000 UT) 1 capsule Ora lly Once a day; Duration: 30 day(s) Active Mupirocin 2 % 1 application Supervisor Partial Denture Department ally once a day 06/29/2025 Active MiraLax 17 GM/SCOOP as directed Orally Active Montelukast Sodium 10 MG take 1 tablet b y mouth once daily Orally once daily; Duration: 90 days Active Glucosamine Chondroitin MSM - as directed Orally Active Immunizations Vaccine Route Administration Date Status Comme nts COVID 19 Pfizer Unknown 01/30/2021 Administered COVID 19 Pfizer Unknown 02/27/2021 Administered COVID 19 Pfizer Unknown 09/25/2021 Administered COVID 19 Pfizer Unknown 09/25/2021 Administered Fluzone Quad (6months&older) Unknown 08/30/2020 Administered Hep A- Pediatric Unknown 05/06/2019 Administered Prevnar (PCV13) IM Intramuscular 05/04/2020 Administered Prevnar (PCV20) IM Intramuscular 06/29/2025 Administered Shingrix Unknown 05/07/2021 Administered Shingrix Unknown 05/07/2021 Administered Shingrix Unknown 08/06/2021 Administered Problems Problem Type SNOMED Code ICD Code Onset Dates Problem Status W/U Status Risk Notes Problem Atrial fibrillation (98553734) Atrial fibrillation (I48.91) Active confirmed Problem Vitamin D deficiency (13064777) Vitamin D deficiency (E55.9) Active confirmed Problem Paroxysmal atrial fibrillation (676842112) Paroxysmal atrial fibrillation (I48.0) Active confirmed Problem Disorder of iron metabolism (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, 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) Active confirmed Problem Bilateral tinnitus (5308357326376) Tinnitus, bilateral (H93.13) Active confirmed Problem History of polyp of colon (situation) (250239753) History of colon polyps (Z86.010) Active confirmed Problem Generalized anxiety disorder (44185167) Anxiety, generalized (F41.1) Active confirmed Problem Tinnitus of left ear (9531073505482) Tinnitus of left ear (H93.12) Active confirmed Problem Dyslipidemia (404891726) Dyslipidemia (E78.5) Active confirmed Problem Allergic rhinitis (97065238) Seasonal allergic rhinitis due to other allergic trigger (J30.89) Active confirmed Problem Pure hypercholesterolemia (866855312) Pure hypercholesterolemia (E78.00) Active confirmed Problem Age-related osteoporosis (101458658) Osteoporosis, unspecified osteoporosis type, unspecified pathological fracture presence (M81.0) Active confirmed Problem Age-related osteoporosis (811557349) Age related osteoporosis, unspecified pathological fracture presence (M81.0) Active confirmed Problem Seasonal allergic rhinitis (092535468) Seasonal allergic rhinitis, unspecified trigger (J30.2) Active confirmed Problem Allergic rhinitis (81011875) Allergic rhinitis, unspecified seasonality, unspecified trigger (J30.9) Active confirmed Problem Essential hypertension (98801986) Hypertension, unspecified type (I10) Active confirmed Problem Seasonal allergic rhinitis (171516514) Acute seasonal allergic rhinitis (J30.2) Active confirmed Problem Dizziness and giddiness (316039558) Dizziness after extension of neck (R42) Active confirmed Problem Sensorineural hearin g loss (89466182) Sensorineural hearing loss (SNHL) of left ear, unspecified hearing status on contralateral side (H90.5) Active confirmed Problem Primary hypertension (60081447) Primary hypertension (I10) Active confirmed Vital Signs Heart Rate 68 /min 06/29/2025 Blood pressure diastolic 80 mm Hg 06/29/2025 Height 65 in 06/29/2025 Blood pressure systolic 142 mm Hg 06/29/2025 Weight 153.6 lbs 06/29/2025 BMI 25.56 kg/m2 06/29/2025 Encounters Encounter Location Date Provider Diagnosis [facility] [address] [place] [address] [place] [id number] 07/27/2024 Octavia Crowshira Hypertension, unspecified type I10 ; Allergic rhinitis, unspecified seasonality, unspecified trigger J30.9 ; Dyslipidemia E78.5 ; Iron deficiency E61.1 ; Vitamin D deficiency E55.9 ; Paroxysmal atrial fibrillation I48.0 and Acute URI J06.9 [facility] [address] [place] [address] [place] [id number] 11/24/2024 Octavia Crowshira Syncope, unspecified syncope type R55 ; Dizziness R42 ; Heart palpitations R00.2 ; Tinnitus, bilateral H93.13 and Anxiety, generalized F41.1 [facility] [address] [place] [address] [place] [id number] 12/08/2024 Octavia Crowdy Syncope, unspecified syncope type R55 ; Dizziness R42 ; Heart palpitations R00.2 ; Tinnitus, bilateral H93.13 ; Anxiety, generalized F41.1 and Acute URI J06.9 [facility] [address] [place] [address] [place] [id number] 02/08/2025 Octavia Dyllandy Injury of toe on rig ht foot, initial encounter S99.921A and Anxiety, generalized F41.1 [facility] [address] [place] [address] [place] [id number] 06/29/2025 Octavia Kori Adult general medica l examination Z00.00 ; [...] enzymes R74.8 and Vitamin D deficiency E55.9 [facility] [place], [place] [id number] 07/28/2024 Octavia Crowdy [facility] [address] [place], [place] [id number] 09/26/2024 R Brandon Kiley [facility] [address] [place], [place] [id number] 12/15/2024 Octavia Crowdy Anxiety, generalized F41.1 and Vertigo R42 [facility] [address] [place], [place] [id number] 12/19/2024 R Rbandon Kiley Anxiety, generalized F41.1 [facility] [address] [place], [place] [id number] 12/23/2024 Octavia Crowdy [facility] [address] [place], [place] [id number] 01/26/2025 Octavia Crowdy Anxiety, generalized F41.1 [facility] [address] [place], [place] [id number] 02/10/2025 Octavia Crowdy [facility] [address] [place], [place] [id number] 03/08/2025 R Brandon Kiley Anxiety, generalized F41.1 [facility] [address] [place], [place] [id number] 06/14/2025 Octavia Crowdy Hypertension, unspecified type I10 Assessments Encounter Date Diagnosis (ICD Code) Assessment Notes Treatment Notes Treatment Clinical Notes Section Notes 07/27/2024 Allergic rhinitis, unspecified seasonality, unspecified trigger (ICD-10 - J30.9) 07/27/2024 Hypertension, unspecified type (ICD-10 - I10) 11/24/2024 Dizziness (ICD-10 - R42) Patient is going to call and get in to see her ENT. 11/24/2024 Syncope, unspecified syncope type (ICD-10 - R55) Just recently had labs checked. See patient docs. 12/08/2024 Dizziness (ICD-10 - R42) Patient is going to call and get in to see her ENT. 12/08/2024 Syncope, unspecified syncope type (ICD-10 - R55) Awaiting brain MRI and testing from cardiology. 12/15/2024 Anxiety, generalized (ICD-10 - F41.1) 12/19/2024 Anxiety, generalized (ICD-10 - F41.1) 01/26/2025 Anxiety, generalized (ICD-10 - F41.1) 02/08/2025 Anxiety, generalized (ICD-10 - F41.1) She is doing well on her sertraline and would like to increase the dose. 02/08/2025 Injury of toe on right foot, initial encounter (ICD-10 - S99.921A) 03/08/2025 Anxiety, generalized (ICD-10 - F41.1) 06/14/2025 Hypertension, unspecified type (ICD-10 - I10) 06/29/2025 Adult general medical examination (ICD-10 - Z00.00) Patient instructed to return to office Annually for Annual Wellness Visits to include annual screenings of Pain assessment, Functional Ability assessment, Cognitive Ability assessment, Fall Risk assessment, Depression screening and Bladder control screening. n 06/29/2025 Hypertension, unspecified type (ICD-10 - I10) n 07/27/2024 Dyslipidemia (ICD-10 - E78.5) 06/29/2025 Anxiety, generalized (ICD-10 - F41.1) n 12/15/2024 Vertigo (ICD-10 - R42) 12/08/2024 Heart palpitations (ICD-10 - R00.2) Wearing a monitor. 11/24/2024 Heart palpitations (ICD-10 - R00.2) 11/24/2024 Tinnitus, bilateral (ICD-10 - H93.13) Patient is going to call Dr. Bowen's office and make an appt. 12/08/2024 Tinnitus, bilateral (ICD-10 - H93.13) Patient is going to call Dr. Bowen's office and make an appt. 07/27/2024 Iron deficiency (ICD-10 - E61.1) 06/29/2025 Iron deficiency (ICD-10 - E61.1) n 06/29/2025 Dyslipidemia (ICD-10 - E78.5) n 12/08/2024 Anxiety, generalized (ICD-10 - F41.1) Can start taking the sertraline at night and see if this helps the dizziness. Will call in 1 week. 11/24/2024 Anxiety, generalized (ICD-10 - F41.1) 07/27/2024 Vitamin D deficiency (ICD-10 - E55.9) 07/27/2024 Paroxysmal atrial fibrillation (ICD-10 - I48.0) 12/08/2024 Acute URI (ICD-10 - J06.9) Has cough medication at home. 06/29/2025 Allergic rhinitis, unspecified seasonality, unspecified trigger (ICD-10 - J30.9) n 06/29/2025 Heart palpitations (ICD-10 - R00.2) n 07/27/2024 Acute URI (ICD-10 - J06.9) 06/29/2025 Tinnitus, bilateral (ICD-10 - H93.13) n [...] (ICD-10 - E55.9) n Plan Of Treatment Pending Test Test Name Order Date H-TSH 06/29/2025 H-VITAMIN D 06/29/2025 H-CMP 06/29/2025 H-T4 free 06/29/2025 H-Ferritin 06/29/2025 H-Iron 06/29/2025 P-Hepatic Function Panel 02/10/2024 Insurance Providers Payer Name Payer Address Payer Phone Subscriber Number Group Number Insured Name Patient Relationship to Insured Coverage Start Date Coverage End Date [employer] (MEDICAR E) [address] [address] [place] [address] [id number] NORBERTO SOLOMON Self - patient is the insured Medical (General) History Medical History History ICD Code Hyperlipidemia arthritis osteoporosis/ostepenia Dr Natalio Roberts 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 Rodriguez Surgical History Surgery Date(Month/Year) EP study-heart Dr Wilson 12/08/03 Basal Cell removed from nose Dr Nam 10/28 Neuroma removed from left foot (mortons neuroma) Dr Yesenia Wadsworth 07/19/07 Stump neuroma removed from left foot 04/23 06/30 total left hip replacement Dr Deepti brewster 05/03/10 Basal cell removed from nose Dr Nam right thumb and trigger finger-Dr Fontanez ey 03/19/17 left thumb and trigger finger-Dr Edouard y 09/01/17 C-scope [facility]- spot removed on head and chest Full Hysterectomy - Dr. Johnson 4
[2025-07-20 10:17] LABS: Chloride 106 mmol/L (98-107); Potassium 4.0 mmoL/L (3.5-5.1); Sodium 137 mmol/L (136-145)
[2025-07-20 10:20] LABS: Alanine Aminotransferase 19 U/L (12-78); Alkaline Phosphatase 94 U/L (38-126); Aspartate Amino Transferase 28 U/L (14-36); Bilirubin,Total 0.6 mg/dl (0.2-1.3); Blood Urea Nitrogen 12 mg/dl (7-17); Creatinine,Serum 0.70 mg/dl (0.52-1.04); Estimated Glomerular Filt Rate 83 ml/min (>60); GFR (African American) 100 ML/MIN (>60); Iron 126 ug/dL (37-170); Total Protein,Serum 7.0 g/dl (6.3-8.2)
[2025-07-20 10:21] LABS: Calcium 9.7 mg/dl (8.4-10.2); Glucose 88 mg/dl (74-100)
[2025-07-20 10:34] LABS: Free T4 (Free Thyroxine) 0.92 ng/dl (0.78-2.19)
[2025-07-20 10:37] LABS: 25-OH Vitamin D, Total 56.9 ng/mL (30-100)
[2025-07-20 10:50] LABS: Thyroid Stimulating Hormone 0.75 uIU/mL (0.465-4.68)
[2025-07-20 10:53] LABS: Ferritin 224 ng/ml (11.1-264)
[2025-07-20 12:42] LABS: Albumin Level 4.6 g/dl (3.5-5.0); Albumin/Globulin Ratio 1.9 (1.1-1.8); Anion Gap 10.0 mEq/L (5-15); Carbon Dioxide 25 mmol/L (22.0-30.0); Globulin 2.4 g/dL (1.3-3.2)
== END 2025-07-20 23:59 | disposition home or self-care (01) ==
LOC: LAB 09:11
PROVIDERS: PCP Physician Assistant; Visit Provider Physician Assistant
DX: E55.9 Vitamin D deficiency, unspecified (principal); E61.1 Iron deficiency; R79.89 Other specified abnormal findings of blood chemistry; R74.8 Abnormal levels of other serum enzymes
CPT/HCPCS: 36415; 80053; 82306; 82728; 83540; 84439; 84443

== ENCOUNTER 2025-09-07 08:19 | Outpatient (CLI) | payer MEDICARE, SELFPAY ==
--- OUTSIDE RECORDS SUMMARY | 2024-11-24 12:15 | XMS_ITS ---
Author [facility] Address [address] [facility] [address] [facility] [address] [place] [phone] Care Team Providers Care African Studies Professor Name Role Phone Jude Cao Primary Care Provider Octavia Sheikh Unavailable [phone] Allergies Allergen (clinical drug ingredient) Drug/Non Drug [...] 3 Recurrent syncope (R 55) [facility] Referring Provider First Name Octavia Referring Provider Last Name Kori Referring Provider Speciality Physician Branch Office Manager Referred Provider Cardiology, . Referred Provider Specialty Cardiovascul ar Disease General Notes Octavia Sheikh 2024 11:46:58 PM > Needs appt with cardiology AUDRAEm Vang Brynn 11/25/2024 8:37:22 AM > faxed to [facility] Em Mensah Brynn 11/29/2024 11:30:11 AM > [...] W/U Status Risk Notes Problem Bilateral tinnitus (1778122330675) Tinnitus, bilateral (H93.13) Active confirmed Problem Generalized anxiety disorder (13576060) Anxiety, generalized (F41.1) Active confirmed Vital Signs Blood pressure systolic 140 mm Hg 11/24/19 25 Blood pressure diastolic 92 mm Hg 025 Height 65 in 11/24/2024 Weight 144.2 lbs 11/24/2024 BMI 23.99 kg/m2 11/24/2024 Encounters Encounter Location Date Provider Diagnosis [facility] [address] [place] [phone] 11/24/2024 Octavia Sheikh Syncope, unspecified syncope type [...] Notes * AVELINA SOLOMONOB:1955 (69 yo F)Acc No.[id number]:11/24/2024 Progress Notes Patient: NORBERTO BONNER Provider: VINCE Alcocer :1955 A ge:68 Y S ex:Female Date:11/24/2024 Address:[address] [place], [id number] Pcp:Jude Cao Subjective: * Chief Complaints: * [...] when she is in large crowds like [id number], but they have happened in the car [...] kidney stones-Dr Agudelo, Vertigo, Colon polyps, Hypertension, 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 * Surgical History: E [...] Magi Strickland 11/25/2024 1:04:5 1 PM > auth#[id number]; valid 11/25/2024 through 01/24/2025; CPT code 85938; faxed to [facility] Octavia Lares 12/15/2024 10:45:20 AM > see TE Notes: Patient is going to call and get in to see her ENT.? Referral To:. Cardiology??Cardiovascular Disease ?Reason: 3.?Heart palpitations? Referral To:. Cardiology??Cardiovascular Disease ?Reason: 4.?Tinnitus, bilateral?Imaging: MRI : Brain with and w/o contrast (Performed Date - 12/07/2024)?no evidence of recent infarct, pituitary cyst* Magi Strickland 11/25/2024 1:04:5 1 PM > auth#[id number]; valid 11/25/2024 through 01/24/2025; CPT code 24042; faxed to [facility] Octavia Lares 12/15/2024 10:45:20 AM > see [...] * Images: Billing Information: * Visit Code: 96688 Office Visit, Est Pt., Level 4. * Procedure Codes: * Electronic signature of VINCE Barahona on 09/07/2025 at 08:34 AM EDT Sign off status: Pending * Provider: VINCE Alcocer Date: 0 11/24/2024 Generated for Shanda romo/Lazaro/Violettasmitting on: 1 08:34 AM EDT History and Physical Notes * HPI (History [...] when she is in large crowds like [place], but they have happened in the car [...]
--- OUTSIDE RECORDS SUMMARY | 2024-12-08 05:45 | XMS_ITS ---
Author Organization [facility] Address [address] [facility] [address] [place] [phone] Care Team Providers Care Deep Fat Fry Cook Name Role Phone Jude Cao Primary Care Provider Kori Octavia Unavailable [phone] Allergies Allergen (clinical drug ingredient) Drug/Non Drug [...] daily; Duration: 90 days Active Vital Signs Blood pressure systolic 140 mm Hg 12/08/19 25 Blood pressure diastolic 88 mm Hg 025 Heart Rate 81 /min 12/08/2024 Height 65 in 12/08/2024 Weight 145.6 lbs 12/08/2024 BMI 24.23 kg/m2 12/08/2024 Encounters Encounter Location Date Provider Diagnosis [facility] [facility] [address] [place] [id number] 12/08/2024 Octavia Sheikh Syncope, unspecified syncope type [...] Notes * AVELINA SOLOMONOB:1955 (69 yo F)Acc No.[id number]:12/08/2024 Progress Notes Patient: NORBERTO BONNER Provider: VINCE Alcocer :1955 A ge:68 Y S ex:Female Date:12/08/2024 Address:[address] [place] [address], [id number] Pcp:Jude Cao Subjective: * Chief Complaints: * [...] H yperlipidemia, Arthritis, osteoporosis/ostepenia Dr Natalio Roberts, [place]'s disease Dr Roman, kidney stones-Dr Agudelo, Vertigo, Colon polyps, Hypertension, 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 * Surgical History: E [...] G 2211 Complex e/[place], [address] CAPILLARY BLOOD DRAW, 13919 CBC WITH AUTO DIFF, 66511 COVID TEST IN HOUSE, Modifiers: QW * Follow Up: [place] with [facility] * Images: Billing Information: * Visit Code: 27681 Office Visit, Est Pt., Level 4. * Procedure Codes: G2211 Complex e/[place]. [address] CAPILLARY BLOOD DRAW. 71982 CBC WITH AUTO DIFF. 91492 COVID TEST IN HOUSE. Modifiers: QW * Electronic signature of VINCE Barahona on 09/07/2025 at 08:33 AM EDT Sign off status: Pending * Provider: VINCE Alcocer Date: 0 12/08/2024 Generated for Shanda ormo/Lazaro/eTransmitting on: 1 08:33 AM EDT History and Physical Notes * [...]
--- OUTSIDE RECORDS SUMMARY | 2025-02-08 06:45 | XMS_ITS ---
Author Organization [facility] Address [address] [facility] [address] [place] [phone] Care Team Providers Care Automatic Shirring 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 Name Role Phone Jude Cao Primary Care Provider [phone] Octavia Sheikh Unavailable [phone] Allergies Allergen (clinical drug ingredient) Drug/Non Drug [address] [place], [place] [id number] 02/08/2025 Octavia Sheikh Injury of toe on [...] Notes * AVELINA SOLOMONOB:1955 (69 yo F)Acc No.[id number]:02/08/2025 Progress Notes Patient: NORBERTO BONNER Provider: VINCE Alcocer :1955 A ge:69 Y S ex:Female Date:02/08/2025 Address:[address] [place] [address], [place] [facility] Pcp:Jude Cao Subjective: * Chief Complaints: * [...] H yperlipidemia, Arthritis, osteoporosis/ostepenia Dr Natalio Roberts, [place]'s disease Dr Roman, kidney stones-Dr Agudelo, Vertigo, Colon polyps, Hypertension, COP - Dr. Rodriguez. * Surgical History: E [...] toe on right foot, initial encounter - S58.016K (Primary) 2 .?Anxiety, generalized - F41.1 Plan: [...] * Images: Billing Information: * Visit Code: 07689 Office Visit, Est Pt., Level 4. * Procedure Codes: G2211 Complex e/m visit add on. 3077F SYST BP = 140 MM HG6 IT. 3080F DIAST BP = 90 MM HG. * Electronic signature of VINCE Barahona on 09/07/2025 at 08:32 AM EDT Sign off status: Pending * Provider: VINCE Alcocer Date: 0 02/08/2025 Generated for Shanda romo/Lazaro/Violettasmitting on: 1 08:32 AM EDT History and Physical Notes * [...]
--- OUTSIDE RECORDS SUMMARY | 2025-06-29 06:00 | XMS_ITS ---
Author Organization [facility] Address [address] [facility] [address] [place] [phone] Care Team Providers Care Finishing Area Supervisor Name Role Phone Jude Cao Primary Care Provider Kori Octavia Hilliard [phone] Allergies Allergen (clinical drug ingredient) Drug/Non Drug [...] days Active Mupirocin 2 % 1 application Supercalender Operator ally once a day 06/29/2025 Active Montelukast Sodium 10 MG take 1 tablet b y mouth once daily Orally once daily; Duration: 90 days Active Immunizations Vaccine Route Administration Date Status Comme nts Prevnar (PCV20) IM Intramuscular 06/29/2025 Administered Vital Signs Blood pressure systolic 142 mm Hg 06/29/20 25 Blood pressure diastolic 80 mm Hg 025 Heart Rate 68 /min 06/29/2025 Height 65 in 06/29/2025 Weight 153.6 lbs 06/29/2025 BMI 25.56 kg/m2 06/29/2025 Encounters Encounter Location Date Provider Diagnosis [place] [address] [facility] [address] [place] [phone] 06/29/2025 Octavia Sheikh Adult general medica l [...] 90 days Mupirocin 2 % 1 application Supercalender Operator ally once a day 06/29/2025 Montelukast [...] Notes * AVELINA SOLOMONOB:1955 (69 yo F)Acc No.[id number]:06/29/2025 Annual Wellness Visit Patient: NORBERTO BONNER Provider: VINCE Alcocer :1955 A ge:69 Y S ex:Female Date:06/29/2025 Address:[facility] [address] [place] [id number] Pcp:Jude Cao Subjective: * Chief Complaints: * [...] kidney stones-Dr Agudelo, Vertigo, Colon polyps, Hypertension, 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 Rodriguez. * Surgical History: E [...] pituitary gland - D35.2 1 2. B [place] 25.0-25.9,adult - Z68.25 1 3. A bnormal [...] (Route: Intramuscular) given by CAROLYN Desai , Live Out Nanny on Left Deltoid (Adult general medical examination) [...] * Images: Billing Information: * Visit Code: 96585 Office Visit, Est Pt., Level 3. Modifiers: [...] 0 06/29/2025 Generated for Shanda romo/Lazaro/eTransmitting on: 1 08:33 AM EDT History and Physical Notes * HPI (History of Present Illness) Category Sub-Category Detail Notes Category Not es ENT/respiratory sore throat cough small amount of whit e sputum HPI Patient is here today for a [facility] Annual Wellness Visit. Pt is not fasting [...]
--- OUTSIDE RECORDS SUMMARY | 2025-09-07 08:33 | XMS_ITS | Data Portability ---
Author Organization [facility] Kodak blanco, YOJANAS HARLEIGH CLOSED Address [address] [place] [address] Care Team Providers Care Android Developer Name Role Phone ANSHU MADDEN Primary Care Provider Assessment No assessment recorded. Plan of Treatment Reminders Order Date Submit Date Provider Last Modified By Organization Details Last Modified Time Details Appointments DERM SU PETER 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 Procedures None allan rded . Surgeries None allan rded . Imaging None allan rded . Medication Orders Efud ex 5 % topi keyanna agrcia [facility]24 [facility] [address], [address], [place], [address], 08/30/2025 11:26:08 Patient TargetsNo targets recorded. Patient Instructions Encounter Date Encounter Id Patient Instructions Last Modified By Organization Details Last Modified Time 08/30/2025 [id number] planning to go t o [place] in Dec 2025 [email or web address] Not available 08/30/2025 10:24:47 Reason for Referral None Reported. Results Created Date Observation Date Name Description Value Unit Range Abnormal Flag Note LastModifiedBy Organization Detail LastModifiedTime 08/30/2008/30/2025 SURGI KEYANNA surgical SEE BELOW Ovando topat holog y Repor t NAME: REBA ROMO PATH: [id number] PROCE DURE DATE: 08/30 SIGNO UT DATE: 08/31 Copy to: Diagn osis: Right dorsa l hand- SEBOR RHEIC KERAT OSIS, IRRIT ATED AND INFLA MED SOURC E OF SPECI MEN: SKIN, R DORSA L HAND CLINI KEYANNA INFOR MATIO N: R/O: SCC. Gross Descr iptio n: The speci men consi sted of a bush fragm ent which was bisec suman and measu red 7 x 6 x 1 mm. All submi tted in one casse tte. Micro scopi c Descr iptio n: An acant hotic epide rmis exhib iting pseud o horn cysts and squam ous henrietta s is surro unded by an infla mmato ry infil trate . KELVIN MURRIETA MD Charlee d Out Date: 08/31 11:50 1 Not Available [facility] [address], [place], [address], 08/31/2025 11:50:25 06/21/20 18 06/21/2018 XR, finge r(s) [facility] [address] [place] [address] Patirachelle t Name: REBA crocker : 12/25/18 54 Patirachelle crocker 8 Orderi ng Provid er: TOD HAGER EXAM DATE: 2017 EXAM: XR LT FINGER (S) HISTOR Y: Follow up of prior surger y. COMPAR STEFFEN: 018 FINDIN GS: Again visual ized is a pin bridgi ng the PIP joint of the left third finger and 2 suture anchor s at the base of the proxim al phalan x of the third finger . There is no eviden ce of loosen ing or compli cation . No acute fractu re is identi fied. There is an ossicl e adjace nt to the base of the proxim al phalan x of the third finger . There is soft tissue swelli ng of the third finger . IMPRES DAVID: 1. There are stable postsu rgical change s in the left third finger . Interp reted By: Kalani solo MD Electr onical ly Signed By: Kalani solo MD on 018 2:09 PM [id number] [facility] [place] [address], [place], [address], 05/29/2022 03:45:32 Result Notes None recorded. Problems No Known Problems Procedures Surgical History Date Name Laterality Status Provider Name and Address Organization Details Recorded Time 08/30/20 25 DAK - Biopsy, Tangential completed [facility] 08/30/2025 10:23:27 08/30/20 24 Destruction Premalignant Lesion(s) completed [facility] 08/30/2024 11:56:17 02/03/20 24 Destruction Premalignant Lesion(s) completed [facility] 02/03/2024 11:12:01 02/03/20 24 Destruction BN Lesions completed [facility] 02/03/2024 11:10:27 09/01/20 17 Orthopedic Surgery completed Emily Agudelo [facility] 11/18/2017 13:27:14 04/23/20 10 Total hip arthroplasty completed Lali Brower [facility] 11/12/2016 11:17:12 Imaging Results None recorded. Procedure Notes None recorded. Medical Equipment None Reported. Allergies Allergen ID Allergen Name Allergen Category Reaction Reaction Severity Criticality Documentation Date Start Date Code Code System Note Provider Name and Address Organization Details Recorded Time 260528 Augmentin medicatio n Not available Not available Not available 12/30/2017 09259 2 RxNorm Crystal Ricco [facility] 8 15:49:42 829894 Levaquin medicatio n Not available Not available Not available 12/30/2017 77085 2 RxNorm Crystal Ricco [facility] 8 15:49:49 603811 Substance with sulfonami de structure and antibacte rial mechanism of action (substanc e) medicatio n Not available Not available Not available 08/30/2024 71066 8003 SNOMED Chrissy Quirozcarol meehan [facility] 11:42:13 Medications Name Sig Start Date Stop Date Status Note LastModified by Organization Details LastModified Time Efudex 5 % topical cream Apply to the chest BID x 3 weeks 2024 active Not Available Not Available Not Avai lable bisoprolo l fumarate 5 mg tablet Take 1 tablet every day by oral route. active Not Available Not Available No t Available Fosamax 70 mg tablet Every week 04/26 completed Frequenc y: Every week;Med ication Descript ion: alendron ate; Dosage:1 ; Route:or al; refills: 0 Not Available Not Available Not Available lisinopri l 10 mg tablet Take 1 tablet every day by oral route. 08/30 completed Not Available Not Available Not Available Tripp 10 mg-325 mg tablet TAKE 1/2-1 TABLET PO Q 4-6 HRS PRN SEVERE POST SURGICAL PAIN 06/04 completed Not Available Not Available Not Available Percocet 5 mg-325 mg tablet TAKE 1-2 TABLETS BY MOUTH EVERY 4-6 HOURS NEEDED FOR PAIN 04/10 completed Not Available Not Available Not Available Fiber-Tab s 625 mg tablet 04/26 completed Medicati on Descript ion: polycarb ophil; Route:or al; refills: 0 Not Available Not Available Not Available sertralin e active Not Available Not Available Not Available atorvasta tin active Not Available Not Available Not Available Calcium-V itamin D 08/30 completed Medicati on Descript ion: calcium- vitamin D; Route:or al; refills: 0 Not Available Not Available Not Available Flonase active Not Available Not Avail able Not Available vitamin E Two times a day active Frequenc y: bid;Medi cation Descript ion: vitamin E; Dosage:1 ; Route:or al; refills: 0 Not Available Not Available Not Available clobetaso l active Not Available Not Available Not Available meclizine active Not Available Not Christie ilable Not Available famotidin e active Not Available Not Available Not Available Vitamin D active Not Available Not Christie ilable Not Available Singulair active Not Available Not Christie ilable Not Available Stool Softener 04/26 completed Medicati on Descript ion: docusate ; Route:or al; refills: 0 Not Available Not Available Not Available Miralax active Not Available Not Avail able Not Available Glucosami ne-Chondr otin Two times a day active Frequenc y: bid;Medi cation Descript ion: miscella neous; Dosage:1 ; refills: 0 Not Available Not Available Not Available Xyzal 5 mg tablet Daily 04/26 completed Frequenc y: daily;Me dication Descript ion: levoceti rizine; Dosage:1 ; Route:or al; refills: 0 Not Available Not Available Not Available Flector 1.3 % transderm al 12 hour patch Two times a day 04/26 completed Duration : prn pain;Ins truction s: apply 1/2 patch to each hip bid;Freq uency: bid;Medi cation Descript ion: diclofen ac topical; Dosage:1 /2; Route:to pical; refills: 5; Quantity :1 box film, extended release Not Available Not Available Not Available Vitals Date Recorded Body height Body mass index (BMI) Body weight Provider Name and Address Organization Details Last Updated DateTime 07/19/2018 166.37 cm 22.6 kg/m2 38080.[address] [facility] 07/19/2018 16:31:53 Date Recorded Body height Body mass index (BMI) Body weight Provider Name and Address Organization Details Last Updated DateTime 08/27/2018 166.37 cm 22.6 kg/m2 47687.75 [facility]/27/[facility] 10:08:52 Social History Question Answer Notes LastModified by Organizat ion Details LastModified Time Tobacco Smoking Status [facility] 11/12/2016 11:14:06 Accident Related Injury No [email or web address] Information not available 11/18/2017 What Is Your Level Of Caffeine Consumption? Occasional Information not available 11/12/2016 How Much Tobacco Do You Chew? None Information not available 11/12/2016 Which Of Your Hands Is Dominant? Right Information not available 11/12/2016 Which Hand Is Involved? Left Information not available 11/12/2016 When Are Your Symptoms The Worst? Night Day Neither Day MORNINGS Information not available 11/12/2016 Have You Been Treated For This Problem Before? No Information not available 11/12/2016 Will This Be Filed As Workers' Compensation? No [email or web address] Information not available 11/18/2017 Marital Status Information not available 11/12/2016 What Was The Date Of Your Most Recent Tobacco Screening? 07/19/2018 Information not available 01/10/2020 Work Related Injury? No [email or web address] Information not available 11/18/2017 Sex: Unknown Functional Status Question Answer Note LastModified by Organizat ion Details LastModified Time Do you use any illicit or recreational drugs? No Information not available 11/12/2016 What is your level of alcohol consumption? None Information not available 11/12/2016 Are you currently employed? 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 Family History Relationship Description Onset Age of this Age Resolved Age Notes LastModified by Organization Details LastModified Time Mother Arthritis [email or web address] Not available 11/12/2016 11:13:16 Mother Hypertensive disorder [email or web address] Not available 2015 11:13:34 Maternal Grandmother Arthritis [email or web address] Not available 10/24 11:13:16 Medical History Condition Response Allergies/Hayfever Y Anxiety/Depression N Other N Gout N Squamous Cell Carcinoma Y Thyroid Disease N Heart Conditions N Kidney Stones Y Hernia N Migraines N COPD N Glaucoma N Pneumonia N Immune System Disorder N Anesthesia Complications N Heart Attack (PR) N Mental Illness N Neurological Problems N Diabetes N Rheumatic Fever N Bleeding Disorder N Arthritis Y Seizures/Epilepsy N Blood Clot N Tuberculosis N Genetic Disorder N AIDS/HIV N Cancer N Stroke N Asthma N Blood Thinners N Basal Cell Carcinoma Alcohol Overuse/Alcohol Abuse N Sleep Apnea N High Cholesterol N Skin Cancer Y Liver Disease N Included as Review of Systems Y Hypertension N Osteoporosis Y Kidney Disease N Gynecological HistoryNo gynecological history recorded. Obstetrics History GPAL:G 0 P 0 0 0 0 Past Encounters Encounter ID Performer Location Encounter Start Date Encounter Closed Date Diagnosis/Indication Diagnosis SNOMED-CT Code Diagnosis ICD10 Code Diagnosis IMO Codes Diagnosis Note [id number] KATELYNN PAEZ MD [facility] [address] [place] [address] 11/12/2016 10:48:58 11/12/2016 12:34:45 Crushing injury of finger 39240877 S67.191A At this point continued hand therapy would be helpful and I have recommende d a hand therapy referral to work with her, increasing and strengthen ing in mind muscle connection for the index finger is important as people tend to bypass it limiting the perceived range of motion. Osteoarthr itis of wrist 412839855 M19.031 Bilateral CMC arthritis Hand-based thumb spica splints Follow-up as needed, obtain x-rays Agree hyperprona suman view and 0 rotation PA neutral lateral and follow-up [id number] KATELYNN PAEZ MD [facility] [address] [place] [address] 12/01/2016 15:29:39 12/01/2016 16:39:03 Crushing injury of finger 84169223 S67.191A Home exercises only, she can improve function without further impingemen tor changes and range of motionand I think that is preferable to her forcing it with more therapy. Osteoarthr itis of wrist 907001262 M19.031 Bilateral CMC arthritiss plints are helpful. She will wear them for a while. She wants to call to schedule left thumb CMC arthroplas ty/suspens ion plasty, and a trigger finger release on the left side long finger when we do it. Should she choose to have the surgery done on the right we will need to inquire as to whether she has a trigger finger on that side as well. [id number] KATELYNN PAEZ MD SURGERY SCHEDULE [address] [place] [address] 03/19/2017 11:17:35 03/19/2017 11:24:02 [id number] KATELYNN PAEZ MD [facility] [address] [place] [address] 03/31/2017 13:48:41 03/31/2017 15:40:04 Osteoarthritis of wrist 470732371 M19.031 Doing well status post right thumb CMC arthroplas ty, trigger finger release long finger, 2 weeks out. Follow-up 1 month no x-rays [id number] KATELYNN PAEZ MD [facility] [address] [address] 05/01/2017 10:19:34 05/01/2017 11:52:24 Osteoarthritis of wrist 824395918 M19.031 Doing great 6 weeks postop, also with trigger finger release, schedule left at her [facility] e, she will call to schedule [id number] KATELYNN PAEZ MD SURGERY SCHEDULE [address] [place] [address] 09/01/2017 06:05:50 09/01/2017 06:08:50 [id number] VALENCIA HARP PA-C [facility] [address] [place] [address] 09/14/2017 12:37:34 09/14/2017 14:04:34 Osteoarthritis of wrist 530085229 M19.031 doing well status post left thumb CMC arthroplas ty was suspension plasty and release of the left long trigger finger. [id number] KATELYNN PAEZ MD [facility] [address] [place] [address] 10/07/2017 15:40:54 10/07/2017 17:04:02 Osteoarthritis of wrist 363945152 M19.031 doing well status post left thumb CMC arthroplas ty was suspension plasty and release of the left long trigger finger Neuroma 458194179 D36.10 Superficia l branch radial nerve, IRecommend angelaz ation, Follow-up 6 weeks, we will do therapy for restoratio n of range of motion and function in the meanwhile [id number] KATELYNN PAEZ MD [facility] [address] [place] [address] 11/18/2017 13:03:12 11/18/2017 14:03:33 Osteoarthritis of wrist 342722769 M19.031 doing well status post left thumb CMC arthroplas ty was suspension plasty and release of the left long trigger finger, she has developed flexor tendon adhesions to the MP joint capsule with a pseudo-bow stringing. We will observe this. I cut out all therapy other than working on this Neuroma 408333863 D36.10 Superficia l branch radial nerve, observe for now, seems to be improving. Follow-up 6 weeks [id number] KATELYNN PAEZ MD [facility] [address] [place] [address] 12/30/2017 15:32:12 12/30/2017 16:34:52 Osteoarthritis of wrist 798698522 M19.031 Osteoarthr itis doing well she will do exercises on her own Neuroma 989462177 D36.10 Superficia l branch radial nerve, Improving Trigger finger 716836236 1 10853 M65.30 Trigger finger release complicate d by MP flexion contractur e. Figure-of- eight splint for PIP joint which is starting to hyperexten d And snap. Follow-up in the spring or whenever she is ready to discuss MP joint volar capsulecto my with postoperat kushal splinting [id number] KATELYNN PAEZ MD [facility] [address] [place] [address] 04/26/2018 10:09:03 04/26/2018 12:24:42 Trigger finger 2742023998 53991 M65.30 Trigger finger release complicate d by MP flexion contractur e. Figure-of- eight splint for PIP joint which is starting to hyperexten d And snap. Despite several months of treatment no relief of the symptoms. Recommend: MP capsulecto my to relieve the MP contractur e. PIP tenodesis with one half FDS, will help with the PIP hyperexten david which is a result of lax PIP joint and imbalance secondary to MP contractur e. Evaluation of the roby system including the proximal Portion of the A2 Roby can be assessed at that time and reconstruc suman as needed. It is likely to be intact. [id number] KATELYNN PAEZ MD SURGERY SCHEDULE [address] [place] [address] 05/25/2018 08:20:20 05/25/2018 08:23:27 [id number] KATELYNN PAEZ MD [facility] [address] [place] [address] 06/04/2018 10:13:01 06/04/2018 13:20:49 Trigger finger [id number] 46522 M65.30 2 weeks status post release MP flexion contractur e, A2 roby reconstruc tion with FDS tenodesis and PIP joint pinning. Continue DIP range of motion MP range of motion including passive MP extension, no blocking for DIP motion, follow-up next week for pin check [id number] KATELYNN PAEZ MD [facility] [address] [place] [address] 06/11/2018 07:46:12 06/11/2018 10:30:15 Trigger finger 2887532257 79850 M65.30 17d weeks status post release MP flexion contractur e, A2 roby reconstruc tion with FDS tenodesis and PIP joint pinning. Follow-up on June 21 or June 23, Valencia Leong , x-rays. Pin removal. Sent back to [facility] to have a digit dorsal block splint and begin range of motion of PIP joint with dorsal block, preventing hyperexten david of the PIP joint. Follow-up after that at the 6 week point. [id number] VALENCIA HARP PA-C [facility] [address] [place] [address] 06/21/2018 13:48:20 06/22/2018 07:45:58 Trigger finger 9989654453 19705 M65.332 Trigger finger release complicate d by MP flexion contractur e. Figure-of- eight splint for PIP joint which is starting to hyperexten d And snap.;, status post corrective surgery [id number] KATELYNN PAEZ MD [facility] [address] [place] [address] 07/19/2018 15:47:02 07/19/2018 17:03:30 Trigger finger 4109210271 64539 M65.332 Status post MP capsulecto my, PIP capsulodes is. Doing well, tape or therapy. Progress to full use, follow-up 6 weeks [id number] KATELYNN PAEZ MD [facility] [address] [address] 08/27/2018 10:05:08 08/27/2018 10:42:55 Trigger finger 7156133129 88456 M65.332 Doing great. Full use. Follow-up as needed. Successful reconstruc tion/linda ge [id number] NILAM RAYMOND R, PROSTHETIC TECHNICIAN [facility] [address] [place] [address] 02/03/2024 10:42:06 02/03/2024 15:24:06 History of malignant neoplasm of skin 838928558 Z85.828 last skin cancer - 2020 - No evidence of recurrence today- Call with any worrisome lesions or if treated lesions return- Return at regular intervals for skin exam as recommende d Multiple b enign melanocytic nevi 702576127 D22.5 - Benign moles seen on exam today - SPF 30 or higher broad-spec trum sunscreen recommende d with re-applica tion every 2 hours - Discussed sun protection measures, including wide-brimm ed hat, sun-protec tive clothing, and avoidance of sun during peak hours of 10am-4pm - Avoid tanning beds as these can increase the chances of all 3 types of skin cancer - Instructed to monitor for changes and to call us for appointmen t with any changing or worrisome lesions Seborrheic keratosis 394 185849 L82.1 - Benign overgrowth s of skin- Hereditary *No charge SK* Senile angioma 1557074 I 78.1 - Benign blood vessel growths - Hereditary Solar lentigo 17742689 L 81.4 - Benign brown spots - Sun-induce d Actinic keratosis 007 L57.0 Actinic keratoses are precancero us lesions that may progress to squamous cell carcinoma if untreated. UV light and genetics may increase risk. Treated lesions should blister, scab over, and heal within a few weeks. If treated lesion(s) does not resolve within 1-2 months, patient agrees to follow up for re-evaluat ion. Patient has a lot of diffuse damage on the chest. Rec doing a round of efudex. Patient has a lot going on in the next several months as to not be able to do it before summer. Will re-evaluat e next fall. [id number] JESSICA FERMIN [facility] [address] [place] [address] 08/30/2024 11:14:12 08/30/2024 13:13:51 Multiple benign melanocytic nevi 665884975 D22.5 - Benign moles seen on exam today - SPF 30 or higher broad-spec trum sunscreen recommende d with re-applica tion every 2 hours - Discussed sun protection measures, including wide-brimm ed hat, sun-protec tive clothing, and avoidance of sun during peak hours of 10am-4pm - Avoid tanning beds as these can increase the chances of all 3 types of skin cancer - Instructed to monitor for changes and to call us for appointmen t with any changing or worrisome lesions Seborrheic keratosis 394 140891 L82.1 - Benign overgrowth s of skin - Hereditary Senile angioma 7522542 I 78.1 - Benign blood vessel growths - Hereditary Solar lentigo 59385389 L 81.4 - Benign brown spots - Sun-induce d History of malignant neoplasm of skin 686548098 Z85.828 Long hx of NMSC. Most recent 2020 - No evidence of recurrence today- Call with any worrisome lesions or if treated lesions return- Return at regular intervals for skin exam as recommende d Actinic keratosis 279343 007 L57.0 Actinic keratoses are precancero us lesions that may progress to squamous cell carcinoma if untreated. UV light and genetics may increase risk. Treated lesions should blister, scab over, and heal within a few weeks. If treated lesion(s) does not resolve within 1-2 months, patient agrees to follow up for re-evaluat ion. [id number] NILAM Roque APRN [facility] [address] [place] [address] 08/30/2025 09:22:45 08/30/2025 10:58:46 History of malignant neoplasm of skin 417248957 Z85.828 most recent skin cancer 04/2021 - No evidence of recurrence today- Call with any worrisome lesions or if treated lesions return- Return at regular intervals for skin exam as recommende d Multiple b enign melanocytic nevi 763820861 D22.5 - Benign moles seen on exam today - SPF 30 or higher broad-spec trum sunscreen recommende d with re-applica tion every 2 hours - Discussed sun protection measures, including wide-brimm ed hat, sun-protec tive clothing, and avoidance of sun during peak hours of 10am-4pm - Avoid tanning beds as these can increase the chances of all 3 types of skin cancer - Instructed to monitor for changes and to call us for appointmen t with any changing or worrisome lesions Seborrheic keratosis 394 311111 L82.1 - Benign overgrowth s of skin - Hereditary Senile angioma 8402251 I 78.1 - Benign blood vessel growths - Hereditary Solar lentigo 94033428 L 81.4 - Benign brown spots - Sun-induce d Neoplasm o f uncertain behavior of skin 39543122 D48.5 Recommend blade biopsy. Risks, benefit, and procedure discussed with patient. Consent obtained. Discussed the biopsy only takes the top layer of the lesion for testing. This does NOT treat the skin cancer if it is one. Advised they would need to return for more treatment given the type and depth of the skin cancer when the results come in. Solar degeneration 03822 006 L57.8 766 Diffuse damage to the chestRecom mend doing a round of Efudex to reduce risk of scarring and cover broad spectrum of damage Efudex (5-fluorou racil) 5% cream prescribed . Apply to areas of pre-cancer s BID for 3 weeks. Avoid eye area and allow to absorb for at least 1 hour before bedtime. Expect redness, crusting, itching, and burning. Therapy may be stopped when crusting is prominent or at any time if symptoms are intolerabl e. Can use Vaseline or OTC hydrocorti sone ointment in between applicatio ns if needed. Call the office with any concerns about symptoms as we can prescribe medication to calm the reaction if needed. Avoid sun exposure during your treatment. Can cause or bring out cold sores. Call if these arise. It will take several weeks for your skin to heal once the therapy has ended. Pigmentary change may occur. All of this explained with handout and given to pt. Photos shown to prepare patient for what skin can look like after use. Efudex has been shown to decrease the amount of AKs and prevent SCC developmen t. Health Concerns Section Related Observation LastModified by Organization Detai ls LastModified Time None Recorded Concern Status LastModified by Organization Details LastModified Time None Recorded Advance Directives Directive None Recorded Payers Insurance Date Sequence Insurance Name Policy Number Policy Arevalo Covered Member ID Arevalo Member ID Guarantor Name 09/04/2025 1 [employer] (MEDICARE REPLACEMENT/A DVANTAGE - PPO) Reba Arita [id number] Reba Arita 09/25/2017 [place] [employer] Reba Arita 02/03/2024 1 [place] [id number] Reba Arita [id number] Reba Arita Notes Date Note Type Note Provider Name and Address Organization Details Recorded Time 07/19/2018 text/html Hand SurgeryRepo rted by PatientHPIFor hand dominance, patient reportsright. For location, patient reportsleft. For severity, patient reportspain level 0/10. For previous surgery, patient reportssurgical procedure: (mp capsulectomy left long fingerpip tenodesis with one half fdspin pip joint left long fingerreconstruct a2 roby with tendon graft),date (05-25-2018), and8 weeks ago(gp 08-23-2018). For work related, patient reportsno. 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 PIP joint does not hyperextend. KATELYNN PAEZ MD [address] [place] [address], [phone], [facility] 07/19/2018 16:48:57 08/27/2018 text/html Hand SurgeryRepo rted by PatientHPIFor hand dominance, patient reportsright. For location, patient reportsleft. For severity, patient reportspain level 0/10. For previous surgery, patient reportssurgical procedure: (mp capsulectomy left long fingerpip tenodesis with one half fdspin pip joint left long fingerreconstruct a2 roby with tendon graft),date (05-25-2018), and13.5 weeks ago. For work related, patient reportsno. 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 NILAM PRATHER, JESSICA [address] [place], [address], [facility] 02/03/2024 11:16:24 08/30/2024 text/html ROS as noted in the HPI Here for a full body skin examination- last skin check: 02/13- history of skin cancer - SCC- last skin cancer was in 04/2021- spots of concern today: face, chest NILAM PRATHER APRN [address] [place], [address], [facility] 08/30/2024 17:03:03 08/30/2025 text/html ROS as noted in the HPI Here for a full body skin examination- last skin check: 08/2024 - history of skin cancer - BCC & SCC - last skin cancer was in: 04/2021 - spots of concern today: Chest, midline upper back, R hand, 2 moles on the back, R elbow, and widespread of face. NILAM PRATHER APRN [address] [place], [address], [facility] 08/30/2025 14:55:19 OBGyn Episode No OBEpisode recorded.
--- OUTSIDE RECORDS SUMMARY | 2025-09-07 08:33 | XMS_ITS | Clinical Summary ---
[facility] Address [address] [place] [address] Care Team Providers Care Elementary School Teacher'S Aide Name Role Phone Sourav Cao MD Primary [...] Team (Late st Contact Info) Description 09/13/2025 8:50 AM EDT Appointment [facility] [address] Health Maintenance Due Date Last Done Comments ANNUAL WELLNESS VISIT 1955 HEPATITIS C SCREENING 1954 TDAP/TD VACCINES (1 - Tdap) 1973 COLOGUARD 1999 COLON CANCER SCREENING 5 YEA R SIGMOIDOSCOPY 1999 COLONOSCOPY 1999 COLORECTAL CANCER SCREENING 1999 CT COLONOGRAPHY 1999 FECAL OCCULT BLOOD TEST 1999 FIT Testing (1 year) 1999 Pneumococcal Vaccine 50+ (2 of 2 - PCV20 or PCV21) 05/04/2021 05/04/2020 INFLUENZA VACCINE 06/23/2025 09/03/2023, , 08/30/2020 COVID-19 Vaccine (2024-2 6 season) 2025 01/21/2023, 09/25/2021, 02/27/2021, Additional history exists DXA SCAN 08/17/2026 08/17/2024, 07/25, 08/12/2023, Additional [...] Region Laterality Modality Breast N/A Mammography 09/18/2024 6:4 3 PM EDT Impressions 09/18/2024 6:44 PM EDT [...] Most Recently Relevant to Health Maintenance Insurance [facility] Medicare Advantage [employer] PPO Care Teams Elementary School Teacher'S Aide Relationship Specialty Start Date End Date Sourav Cao MD [address] [facility] [address] [place] [id number] PCP - General Family Medicine 06/28/18
--- OUTSIDE RECORDS SUMMARY | 2025-09-07 08:33 | XMS_ITS | Encounter Summary ---
Author Organization Healthcare Address [address] [place] [address] Care Team Providers Care Crab Backer Name Role Phone Sourav Cao MD Primary Care Provider [phone] Encounter Details Date Type Department Care Team (Late st Contact Info) Description 12/07/2024 Orders Only External Location [address] [place] [address] Provider, External Social History Tobacco Use Types [...] Care Team (Late st Contact Info) Description 01/23/2026 8:00 AM EST Office Visit [facility] [address] [place] [phone] (1), [employer] Fellow documented as of [...] documented as of this encounter Care Teams Crab Backer Relationship Specialty Start Date End Date Sourav Cao MD [address] [place] [address] PCP - General 08/11/22 documented as of this encounter
--- OUTSIDE RECORDS SUMMARY | 2025-09-07 08:33 | XMS_ITS | Continuity of Care Document ---
Author Organization [facility] NEEMA Chinchilla HELVETIA Address [address] [place] [address] Care Team Providers Care Marketing Finance Manager Name Role Phone CHANO ANSHU Primary Care Provider Assessment No assessment recorded. 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 Procedures None allan rded . Surgeries None allan rded . Imaging None allan rded . Medication Orders Efud ex 5 % topi keyanna garcia 2024 025 [facility], [address], [address], [place], [address], 08/30/2025 11:26:08 Patient TargetsNo targets recorded. Patient Instructions Encounter Date Encounter Id Patient Instructions Last Modified By Organization Details Last Modified Time 08/30/2025 [id number] planning to go t o [place] in Dec 2025 Not available 08/30/2025 10:24:47 Reason for Referral None Reported. Results Created Date Observation Date Name Description Value Unit Range Abnormal Flag Note LastModifiedBy Organization Detail LastModifiedTime 08/30/2008/30/2025 SURGI KEYANNA surgical SEE BELOW [place] topat holog y Repor t NAME: REBA ROMO PATH: [id number] PROCE DURE DATE: 08/30 SIGNO UT [...] Out Date: 08/31 11:50 1 Not Available [facility] [address] [place], [address], 08/31/2025 11:50:25 Result Notes None recorded. Problems No Known Problems Procedures Surgical History Date Name Laterality Status Provider Name and Address Organization Details Recorded Time 08/30/20 25 DAK - Biopsy, [facility] 08/30/2025 10:23:27 08/30/20 24 Destruction Premalignant Lesion(s) [facility] 08/30/2024 11:56:17 02/03/20 24 Destruction Premalignant Lesion(s) completed [facility] 02/03/2024 11:12:01 02/03/20 24 Destruction BN Lesions completed [facility] 02/03/2024 11:10:27 09/01/20 17 Orthopedic Surgery completed Emily Agudelo [facility] 11/18/2017 13:27:14 04/23/20 10 Total hip arthroplasty completed Lali Brower [facility] 11/12/2016 11:17:12 Imaging Results None recorded. Procedure Notes None recorded. Medical Equipment None Reported. Allergies Allergen ID Allergen Name Allergen Category Reaction Reaction Severity Criticality Documentation Date Start Date Code Code System Note Provider Name and Address Organization Details Recorded Time 253676 Augmentin medicatio n Not available Not available Not available 12/30/2017 40180 2 RxNorm Madison Chacko [facility] 8 15:49:42 341122 Levaquin medicatio n Not available Not available Not available 12/30/2017 36566 2 RxNorm Crystal Ricco [facility] 8 15:49:49 931612 Substance with sulfonami de structure and antibacte rial mechanism of action (substanc e) medicatio n Not available Not available Not available 08/30/2024 43793 8003 SNOMED Chrissy Mirzacarol [facility] 4 11:42:13 Medications Name Sig Start Date Stop [...] completed Not Available Not Available Not Available [place] 10 mg-325 mg tablet TAKE 1/2-1 TABLET [...] Not Available Not Available Not Available Vitals None Recorded Social History Question Answer Notes LastModified by Organizat ion Details LastModified Time Tobacco Smoking Status Never Smoker Lali Brower [facility] 11/12/2016 11:14:06 Accident Related Injury No Information not available 11/18/2017 What Is Your [...] This Be Filed As Workers' Compensation? No [email or web address] Information not available 11/18/2017 Marital Status Information not available 11/12/2016 What Was The Date Of Your Most Recent Tobacco Screening? 07/19/2018 Information not available 01/10/2020 Work Related Injury? No Information not available 11/18/2017 Sex: Unknown Functional Status Question Answer Note LastModified by Organizat ion Details LastModified Time Do you use any illicit or recreational drugs? No Information not available 11/12/2016 What is your level of alcohol consumption? None Information not available 11/12/2016 Are you currently employed? 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 Family History Relationship Description Onset Age of this Age Resolved Age Notes LastModified by Organization Details LastModified Time Mother Arthritis kduffie Not available 11/12/2016 11:13:16 Mother Hypertensive disorder kduffie Not available 2015 11:13:34 Maternal Grandmother Arthritis kduffie Not available 10/24 11:13:16 Medical History Condition Response Allergies/Hayfever Y Gout N Anxiety/Depression N Other N Thyroid Disease N Squamous Cell Carcinoma Y Heart Conditions N Kidney Stones Y Hernia N Migraines N COPD N Glaucoma N Pneumonia N Immune System Disorder N Anesthesia Complications N Heart Attack ([place]) N Mental Illness N Neurological Problems N Diabetes N Rheumatic Fever N Bleeding Disorder N Arthritis Y Seizures/Epilepsy N Blood Clot N Tuberculosis N Genetic Disorder N AIDS/HIV N Cancer N Stroke N Asthma N Basal Cell Carcinoma Blood Thinners N Alcohol Overuse/Alcohol Abuse N Sleep Apnea N [...] ICD10 Code Diagnosis IMO Codes Diagnosis Note [id number] NILAM Roque APRN [facility] [address] [place] [address] 08/30/2025 09:22:45 08/30/2025 10:58:46 History of malignant neoplasm of skin 778562180 Z85.828 most recent skin cancer 04/2021 - No evidence of recurrence today- Call with any worrisome lesions or if treated lesions return- Return at regular intervals for skin exam as recommende d Multiple b enign melanocytic nevi 860454660 D22.5 - Benign moles seen on exam [...] changing or worrisome lesions Seborrheic keratosis 394 501882 L82.1 - Benign overgrowth s of skin - Hereditary Senile angioma 2016116 I 78.1 - Benign blood vessel growths - Hereditary Solar lentigo 17296115 L 81.4 - Benign brown spots - Sun-induce d Neoplasm o f uncertain behavior of skin 59034395 D48.5 Recommend blade biopsy. Risks, benefit, and procedure discussed with patient. Consent obtained. Discussed the biopsy only takes the top layer of the lesion for testing. This does NOT treat the skin cancer if it is one. Advised they would need to return for more treatment given the type and depth of the skin cancer when the results come in. Solar degeneration 56367 006 L57.8 766 Diffuse damage to the [...] by Organization Details LastModified Time None Recorded Payers Encounter Date Sequence Insurance Name Policy Number Policy Arevalo Covered Member ID Arevalo Member ID Guarantor Name 08/30/2025 1 [employer] (MEDICARE REPLACEMENT/A DVANTAGE - PPO) Reba Arita [id number] Reba Arita Notes Date Note Type Note Provider Name and Address Organization Details Recorded Time 08/30/2025 text/html ROS as noted in the HPI Here for a full body skin examination- last skin check: 08/2024 - history of skin cancer - BCC & SCC - last skin cancer was in: 04/2021 - spots of concern today: Chest, midline upper back, R hand, 2 moles on the back, R elbow, and widespread of face. NILAM PRATHER, BUTTON SEWING MACHINE OPERATOR [address] [place], [address], [facility] 08/30/2025 14:55:19 OBGyn Episode No OBEpisode recorded.
--- OUTSIDE RECORDS SUMMARY | 2025-09-07 08:34 | XMS_ITS | Patient Health Record ---
Author Organization [facility] Address [address] [facility] [address] [place] [address] Care Team Providers Care Well Puller Name Role Phone Eloise Rodriguez Unavailable [phone] Allergies Allergen (clinical drug ingredient) Drug/Non Drug [...] Status Risk Notes Problem Pessary care (regime/therapy) (247874459) Encounter for pessary maintenance (Z46.89) Active confirmed Problem Complete uterine prolapse (66063603) Complete uterine prolapse (N81.3) Active confirmed Problem Midline cystocele (403111901) Midline cystocele (N81.11) Active confirmed Problem Lichen sclerosus (418676868) Lichen sclerosus (L90.0) Active confirmed Problem Gynecological examination normal (690313127409144 ) Cervical smear, as part of routine gynecological examination (Z01.419) 08/02/20 20 Active confirmed Annual without abnormal findings Plan Of Treatment No Information Insurance Providers Payer Name Payer Address Payer Phone Subscriber Number Group Number Insured Name Patient Relationship to Insured Coverage Start Date Coverage End Date [employer] [address] [address] [place], [place] [id number] [phone] [id number] Reba Arita Self - patient is the [...]
--- OUTSIDE RECORDS SUMMARY | 2025-09-07 08:34 | XMS_ITS | Patient Health Record ---
[facility] Organization [facility] Address [address] [facility] [address] [place] [id number] Care Team Providers Care Gameroom Technician Name Role Phone Jude Cao Primary Care Provider [phone] Octavia Sheikh Unavailable [phone] Allergies Allergen (clinical drug ingredient) Drug/Non Drug [...] PM Interpretation: Performing Lab: Notes/Report: Result: Neg X ray : Foot, right Reviewed date:02/10/2025 08:56:55 AM Interpretation: Performing Lab: Notes/Report: H-TSH Reviewed date:08/01/2025 01:59:45 PM Interpretation: Performing Lab: Notes/Report: H-VITAMIN D Reviewed date:08/01/2025 02:00:38 PM Interpretation: Performing Lab: Notes/Report: H-CMP Reviewed date:08/01/2025 01:59:01 PM Interpretation: Performing Lab: Notes/Report: H-T4 free Reviewed date:08/01/2025 01:59:29 PM Interpretation: Performing Lab: Notes/Report: H-Ferritin Reviewed date:08/01/2025 02:00:05 PM Interpretation: Performing Lab: Notes/Report: H-Iron Reviewed date:08/01/2025 02:00:23 PM Interpretation: Performing Lab: Notes/Report: H-TSH Reviewed date:07/27/2025 02:22:14 PM Interpretation: Performing Lab: Notes/Report: TSH 0.75 0.465-4.68 uIU/mL H-VITAMIN D Reviewed date:07/27/2025 02:22:14 PM Interpretation: Performing Lab: Notes/Report: TVITD 56.9 30-100 ng/mL Deficient <20 ng/mL Insufficient 20-30 ng/mL Sufficient 30-100 ng/mL Potential Toxicity >100 ng/mL H-CMP Reviewed date:07/27/2025 02:22:14 PM Interpretation: Performing Lab: Notes/Report: NA 137 136-145 mmol/L K 4.0 3.5-5.1 mmoL/L CL 106 98-107 mmol/L CO2 25 22.0-30.0 mmol/L BUN 12 7-17 mg/dl CREATT 0.70 0.52-1.04 mg/dl GFRAA 100 >60 ML/MIN EGFR 83 >60 ml/min GLU 88 74-100 mg/dl CA 9.7 8.4-10.2 mg/dl BILIT 0.6 0.2-1.3 mg/dl AST 28 14-36 U/L ALT 19 12-78 U/L TP 7.0 6.3-8.2 g/dl ALB 4.6 3.5-5.0 g/dl ALP 94 38-126 U/L NA 137 136-145 mmol/L K 4.0 3.5-5.1 mmoL/L CL 106 98-107 mmol/L CO2 25 22.0-30.0 mmol/L GAP 10.0 5-15 mEq/L BUN 12 7-17 mg/dl CREATT 0.70 0.52-1.04 mg/dl GFRAA 100 >60 ML/MIN EGFR 83 >60 ml/min GLU 88 74-100 mg/dl CA 9.7 8.4-10.2 mg/dl BILIT 0.6 0.2-1.3 mg/dl AST 28 14-36 U/L ALT 19 12-78 U/L TP 7.0 6.3-8.2 g/dl ALB 4.6 3.5-5.0 g/dl GLOB 2.4 1.3-3.2 g/dL AGRATIO 1.9 1.1-1.8 ALP 94 38-126 U/L H-T4 free Reviewed date:07/27/2025 02:22:14 PM Interpretation: Performing Lab: Notes/Report: T4F 0.92 0.78-2.19 ng/dl H-Ferritin Reviewed date:07/27/2025 02:22:14 PM Interpretation: Performing Lab: Notes/Report: AGUSTO 224 11.1-264 ng/ml H-Iron Reviewed date:07/27/2025 02:22:15 PM Interpretation: Performing Lab: Notes/Report: FE 126 37-170 ug/dL MRI : Brain with and w/o con trast Reviewed date:12/15/2024 10:45:27 AM Interpretation:no evidence of recent infarct, pituitary cyst Performing Lab: Notes/Report: no evidence of recent infarct, pituitary cyst Reason For Referral Diagnosis 1 Heart palpitations ( R00.2) Diagnosis 2 Dizziness (R42) Diagnosis 3 Recurrent syncope (R 55) Referral Organization [facility] Referring Provider First Name Octavia Referring Provider Last Name Kori Referring Provider Speciality Physician Draw Furnace Tender Referred Provider Cardiology, . Referred Provider Specialty Cardiovascul ar Disease General Notes Octavia Sheikh 2024 11:46:58 PM > Needs appt with cardiology AUDRA.Em Brynn 11/25/2024 8:37:22 AM > faxed to [facility] CardiologyEm Brynn 11/29/2024 11:30:11 AM > 11/29/2024 at 02:00pm Referral Priority Routine Reason patient needs to see Dr. Wu Diagnosis 1 Vertigo (R42) [facility] Referring Provider First Name Octavia Referring Provider Last Name Kori Referring Provider Speciality Physician Draw Furnace Tender Referred Provider Specialty ENT General Notes Magi [...] topically 2 times a day prn Active Sertraline HCl 50 MG 1 tablet Orally Onc e a day; Duration: 90 days Active Vitamin E 400 UNIT 1 cap(s) orally once a day Active hydrOXYzine HCl 25 MG 1 tablet Orally ev luis eduardo 6 hrs, prn Active Vitamin D 50 MCG (2000 UT) 1 capsule Ora lly Once a day; Duration: 30 day(s) Active Mupirocin 2 % 1 application Scenic Arts Supervisor ally once a day 06/29/2025 Active MiraLax 17 GM/SCOOP as directed Orally Active Montelukast Sodium 10 MG take 1 tablet b y mouth once daily Orally once daily; Duration: 90 days Active Glucosamine Chondroitin MSM - as directed Orally Active Immunizations Vaccine Route Administration Date Status Comme nts Shingrix Unknown 05/07/2021 Administered Shingrix Unknown 08/06/2021 Administered Prevnar (PCV20) IM Intramuscular 06/29/2025 Administered Hep A- Pediatric Unknown 05/06/2019 Administered COVID 19 Pfizer Unknown 01/30/2021 Administered COVID 19 Pfizer Unknown 02/27/2021 Administered COVID 19 Pfizer Unknown 09/25/2021 Administered COVID 19 Pfizer Unknown 09/25/2021 Administered Prevnar (PCV13) IM Intramuscular 05/04/2020 Administered Shingrix Unknown 05/07/2021 Administered Fluzone Quad (6months&older) Unknown 08/30/2020 Administered Problems Problem Type SNOMED Code ICD Code Onset Dates Problem Status W/U Status Risk Notes Problem Atrial fibrillation (62502147) Atrial fibrillation (I48.91) Active confirmed Problem Vitamin D deficiency (69223459) Vitamin D deficiency (E55.9) Active confirmed Problem Paroxysmal atrial fibrillation (242280310) Paroxysmal atrial fibrillation (I48.0) Active confirmed Problem 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, 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) Active confirmed Problem Bilateral tinnitus (3494117923146) Tinnitus, bilateral (H93.13) Active confirmed Problem History of polyp of colon (situation) (319904716) History of colon polyps (Z86.010) Active confirmed Problem Generalized anxiety disorder (61118914) Anxiety, generalized (F41.1) Active confirmed Problem Tinnitus of left ear (3754037343549) Tinnitus of left ear (H93.12) Active confirmed Problem Dyslipidemia (197930578) Dyslipidemia (E78.5) Active confirmed Problem Allergic rhinitis (83796475) Seasonal allergic rhinitis due to other allergic trigger (J30.89) Active confirmed Problem Pure hypercholesterolemia (024033478) Pure hypercholesterolemia (E78.00) Active confirmed Problem Age-related osteoporosis (337091991) Osteoporosis, unspecified osteoporosis type, unspecified pathological fracture presence (M81.0) Active confirmed Problem Age-related osteoporosis (322970463) Age related osteoporosis, unspecified pathological fracture presence (M81.0) Active confirmed Problem Seasonal allergic rhinitis (687489308) Seasonal allergic rhinitis, unspecified trigger (J30.2) Active confirmed Problem Allergic rhinitis (97843133) Allergic rhinitis, unspecified seasonality, unspecified trigger (J30.9) Active confirmed Problem Essential hypertension (35002965) Hypertension, unspecified type (I10) Active confirmed Problem Seasonal allergic rhinitis (909447153) Acute seasonal allergic rhinitis (J30.2) Active confirmed Problem Dizziness and giddiness (057505803) Dizziness after extension of neck (R42) Active confirmed Problem Sensorineural hearin g loss (82184980) Sensorineural hearing loss (SNHL) of left ear, unspecified hearing status on contralateral side (H90.5) Active confirmed Problem Primary hypertension (57759048) Primary hypertension (I10) Active confirmed Vital Signs Heart Rate 68 /min 06/29/2025 Blood pressure diastolic 80 mm Hg 06/29/2025 Height 65 in 06/29/2025 Blood pressure systolic 142 mm Hg 06/29/2025 Weight 153.6 lbs 06/29/2025 BMI 25.56 kg/m2 06/29/2025 Encounters Encounter Location Date Provider Diagnosis [facility] [address] [facility] [address] [place], [place] [id number] 11/24/2024 Octaviapeggy Sheikh Syncope, unspecified syncope type R55 ; Dizziness R42 ; Heart palpitations R00.2 ; Tinnitus, bilateral H93.13 and Anxiety, generalized F41.1 [facility] [address] [place], [place] [id number] 12/08/2024 Octavia Kori Syncope, unspecified syncope type R55 ; Dizziness R42 ; Heart palpitations R00.2 ; Tinnitus, bilateral H93.13 ; Anxiety, generalized F41.1 and Acute URI J06.9 [facility] [address] [place] [id number] 02/08/2025 Octaviapeggy Sheikh Injury of toe on rig ht foot, initial encounter S99.921A and Anxiety, generalized F41.1 [facility] [address] [place], [place] [id number] 06/29/2025 Octaviapeggy Sheikh Adult general medica l examination Z00.00 [...] enzymes R74.8 and Vitamin D deficiency E55.9 [facility] [address] [place], [place] [id number] 09/26/2024 R Brandon Cao [facility] [address] [place], [place] [id number] 12/15/2024 Octaviapeggy Sheikh Anxiety, generalized F41.1 and Vertigo R42 [facility] [address] [place], [place] [id number] 12/19/2024 R Brandon Cao Anxiety, generalized F41.1 [facility] [address] [place], [place] [id number] 12/23/2024 Octavia Crowdy [facility] [address] [place], [place] [id number] 01/26/2025 Octavia Dyllandy Anxiety, generalized F41.1 [facility] [address] [place], [place] [id number] 02/10/2025 Octavia Crowdy [facility] [address] [place], [place] [id number] 03/08/2025 R Brandon Lozanofleet Anxiety, generalized F41.1 [facility] [address] [place], [place] [id number] 06/14/2025 Octavia Dyllandy Hypertension, unspecified type I10 [facility] [address] [place], [place] [id number] 07/25/2025 R Brandon Kiley [facility] [address] [place], [place] [id number] 07/27/2025 Octavia Kori Assessments Encounter Date Diagnosis (ICD Code) Assessment Notes Treatment Notes Treatment Clinical Notes Section Notes 11/24/2024 Dizziness (ICD-10 - R42) Patient is [...] Dr. Bowen's office and make an appt. 06/29/2025 Iron deficiency (ICD-10 - E61.1) n 06/29/2025 Dyslipidemia (ICD-10 - E78.5) n 12/08/2024 Anxiety, generalized (ICD-10 - F41.1) Can start taking the sertraline at night and see if this helps the dizziness. Will call in 1 week. 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 Rodriguez Surgical History Surgery Date(Month/Year) [...]
--- OUTSIDE RECORDS SUMMARY | 2025-09-07 08:34 | XMS_ITS | Clinical Summary ---
Author Organization Healthcare Address [address] [place] [address] Care Team Providers Care Poultry Dresser Name Role Phone Sourav Cao MD Primary Care Provider [phone] Allergies Active Allergy Reactions Criticality Noted Date [...] Description 01/23/2026 8:00 AM EST Office Visit [facility] [address] [place] [address] (1), [employer] Fellow Health Maintenance Due Date Last Done Comments [facility]-Hepatitis C Screening 1955 [facility]-Medicare Annual Wellness (AWV) 1955 [facility]-Infant/Child/Adol SDOH Screenings 1955 [facility]- SDOH Screenings 1972 [facility]-Adult SDOH Screenings 1972 [facility]-DTaP,Tdap,and Td Vaccines (1 - Tdap) 1973 CT Colonography 1999 Colonoscopy 1999 FIT-DNA 1999 FIT 1999 FOBT 1999 Sigmoidoscopy 1999 [facility]-Colorectal Cancer Screening 1999 [facility]-Pneumococcal Vaccine: 50+ Years (2 of 2 - PCV20 or PCV21) 05/04/2021 05/04/2020 [id number] Vaccine ( season) 2025 01/21/2023, 09/25/2021, 02/27/2021, Additional history exists [facility]-Influenza [...] this topic Medical Devices Implanted Type Area Train Gate Attendant Device Identifier Shelf Expiration Date Model / [...] Fluoroscop y Narrative 08/22/2024 2:36 PM EDT [facility] [address] [place] [address] DXA Bone Densitometry Report: [08/17/2024] BMD test performed using the Newtron DXA System (analysis version: 14.10) manufactured by [employer]. REFERRING PROVIDER: Dr. Ronit Quinn, PA CLINICAL INFORMATION: osteoporosis PATIENT NAME: Reba [...] calculation of change in BMD). Ronit CLARKE IMG DXA PROCEDURES Final Res ult from Last 3 Months or Most Recently Relevant to Health Maintenance Insurance [facility] MEDICARE Advance Directives * Full Code (Latest Code Status on File) Date Activated Date Inactivated Comments 03/09/2024 1:05 PM 03/10/2024 12:55 PM Question Answer Comments Patient has decision-making capacity? Yes Care Teams Poultry Dresser Relationship Specialty Start Date End Date Sourav Cao MD [address] [place] [address] PCP - General 08/11/22
[2025-09-07 09:09] LABS: Albumin Level 4.2 g/dl (3.5-5.0); Chloride 103 mmol/L (98-107); Sodium 137 mmol/L (136-145)
[2025-09-07 09:10] LABS: Potassium 4.4 mmoL/L (3.5-5.1)
[2025-09-07 09:12] LABS: Anion Gap 12.4 mEq/L (5-15); Blood Urea Nitrogen 14 mg/dl (7-17); Carbon Dioxide 26 mmol/L (22.0-30.0); Creatinine,Serum 0.70 mg/dl (0.52-1.04); Estimated Glomerular Filt Rate 83 ml/min (>60); GFR (African American) 100 ML/MIN (>60)
[2025-09-07 09:13] LABS: Calcium 9.4 mg/dl (8.4-10.2); Glucose 89 mg/dl (74-100); Phosphorous 3.2 mg/dl (2.5-4.5)
[2025-09-07 09:16] LABS: 25-OH Vitamin D, Total 47.3 ng/mL (30-100)
--- NOTE | 2025-09-07 09:28 | XR_ITS ---
FINAL REPORT TECHNIQUE: Bone densitometry calculations of the lumbar spine and left hip were obtained. CLINICAL HISTORY: screening COMPARISON: None FINDINGS: Using L1-4, the bone mineral density of the spine is 0.869 g/cm2, corresponding to T-score of -1.6 and a Z score of 0.5. This is within the range of osteopenia. Using the right hip, the bone mineral density of the femoral neck is 0.676 g/cm2, corresponding to a T-score of -1.6 and a Z-score of 0.3. This is within the range of osteopenia. FRAX not reported because the patient is being treated for osteoporosis. NOTE: T-score: Standard deviation compared with peak bone mass of young adult mean. *Following the recommendations of the International Society of Bone densitometry, classification of hip BMD is based on the lower of two T-scores; total hip or femoral neck. IMPRESSION: 1. Bone mineral density of the lumbar spine within the range of osteopenia. 2. Bone mineral density of the left femoral neck within the range of osteopenia. Reviewed, Interpreted and Dictated by Kathryn Giordano MD Transcribed by Joan Taylor Authenticated and [facility]
== END 2025-09-07 23:59 | disposition home or self-care (01) ==
LOC: RAD 08:20
PROVIDERS: PCP Physician Assistant; Visit Provider Student in an Organized Health Care Education/Training Program
DX: M85.88 Other specified disorders of bone density and structure, other site (principal); M85.852 Other specified disorders of bone density and structure, left thigh; M81.0 Age-related osteoporosis without current pathological fracture; Z78.0 Asymptomatic menopausal state
CPT/HCPCS: 36415; 77081; 80069; 82306; 82523; 83970; 84080

== ENCOUNTER 2025-10-18 13:14 | Outpatient (CLI) | payer MEDICARE, SELFPAY ==
--- OUTSIDE RECORDS SUMMARY | 2025-10-18 13:18 | XMS_ITS | Data Portability ---
Author Organization [facility] Kodak blanco, YOJANAS AHOSKIE CLOSED Address [address] [place] [address] Care Team Providers Care Supervisor Silvering Department Name Role Phone ANSHU MADDEN Primary Care Provider Assessment No assessment recorded. 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 Procedures None allan rded . Surgeries None allan rded . Imaging None allan rded . Medication Orders Efud ex 5 % topi keyanna garcia [facility] [address], [address], 08/30/2025 11:26:08 Patient TargetsNo targets recorded. Patient Instructions Encounter Date Encounter Id Patient Instructions Last Modified By Organization Details Last Modified Time 08/30/2025 [id number] planning to go t o [place] in Dec 2025 [email or web address] Not available 08/30/2025 10:24:47 Reason for Referral None Reported. Results Created Date Observation Date Name Description Value Unit Range Abnormal Flag Note LastModifiedBy Organization Detail LastModifiedTime 08/30/2008/30/2025 SURGI KEYANNA surgical SEE BELOW [place] topat holog y Repor t NAME: REBA [...] Out Date: 08/31 11:50 1 Not Available [facility] [address], [place], [address], 08/31/2025 11:50:25 06/21/20 18 06/21/2018 XR, finge r(s) [facility] [address] [place] [address] Patirachelle t Name: REBA crocker : 12/25/18 [...] solo MD on 018 2:09 PM [id number] [facility] [place] [address], [place], [address], 05/29/2022 03:45:32 Result Notes None recorded. Problems No Known Problems Procedures Surgical History Date Name Laterality Status Provider Name and Address Organization Details Recorded Time 08/30/20 25 DAK - Biopsy, Tangential completed [facility] 08/30/2025 10:23:27 08/30/20 24 Destruction Premalignant Lesion(s) completed [facility] 08/30/2024 11:56:17 02/03/20 24 Destruction Premalignant Lesion(s) completed [facility] 02/03/2024 11:12:01 02/03/20 24 Destruction BN Lesions completed [facility] 02/03/2024 11:10:27 09/01/20 17 Orthopedic Surgery completed Emily Agudelo [facility] 11/18/2017 13:27:14 04/23/20 10 Total hip arthroplasty completed Lali Brower [facility] 11/12/2016 11:17:12 Imaging Results None recorded. Procedure Notes None recorded. Medical Equipment None Reported. Allergies Allergen ID Allergen Name Allergen Category Reaction Reaction Severity Criticality Documentation Date Start Date Code Code System Note Provider Name and Address Organization Details Recorded Time 097504 Augmentin medicatio n Not available Not available Not available 12/30/2017 48529 2 RxNorm Crystal Ricco [facility] 8 15:49:42 323063 Levaquin medicatio n Not available Not available Not available 12/30/2017 40625 2 RxNorm Crystal Ricco [facility] 8 15:49:49 212114 Substance with sulfonami de structure and antibacte rial mechanism of action (substanc e) medicatio n Not available Not available Not available 08/30/2024 89877 8003 SNOMED Chrissy Quirozcarol meehan [facility] 11:42:13 Medications Name Sig Start Date [...] completed Not Available Not Available Not Available [place] 10 mg-325 mg tablet TAKE 1/2-1 TABLET [...] Updated DateTime 07/19/2018 166.37 cm 22.6 kg/m2 47279.75 g Nilam [facility] 07/19/2018 16:31:53 Date Recorded Body height Body mass index (BMI) Body weight Provider Name and Address Organization Details Last Updated DateTime 08/27/2018 166.37 cm 22.6 kg/m2 63123.75 [facility] 08/27/2018 10:08:52 Social History Question Answer Notes LastModified by Organizat ion Details LastModified Time Tobacco Smoking Status Never [facility]oker [facility]/12/2016 11:14:06 Accident Related Injury No [email or web address] Information not available 11/18/2017 What Is Your [...] This Be Filed As Workers' Compensation? 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 Family History Relationship Description Onset Age of this Age Resolved Age Notes LastModified by Organization Details LastModified Time Mother Arthritis [email or web address] Not available 11/12/2016 11:13:16 Mother Hypertensive disorder kduffie Not available 2015 11:13:34 Maternal Grandmother Arthritis kduffie Not available 10/24 11:13:16 Medical History Condition Response Gout N Other N Kidney Stones Y COPD N Pneumonia N Arthritis Y Blood Clot N Cancer N Stroke N Skin Cancer Y Kidney Disease N Squamous Cell Carcinoma Y Heart Conditions N Migraines N Rheumatic Fever N Bleeding Disorder N Tuberculosis N Genetic Disorder N AIDS/HIV N Asthma N Included as Review of Systems Y Anxiety/Depression N Thyroid Disease N Hernia N Glaucoma N Anesthesia Complications N Blood Thinners N Alcohol Overuse/Alcohol Abuse N High Cholesterol N Liver Disease N Allergies/Hayfever Y Immune System Disorder N Heart Attack ([place]) N Mental Illness N Neurological Problems N Diabetes N Seizures/Epilepsy N Basal Cell Carcinoma Sleep Apnea N Hypertension N Osteoporosis Y Gynecological HistoryNo gynecological history recorded. Obstetrics History GPAL:G 0 P 0 0 0 0 Past Encounters Encounter ID Performer Location Encounter Start Date Encounter Closed Date Diagnosis/Indication Diagnosis SNOMED-CT Code Diagnosis ICD10 Code Diagnosis IMO Codes Diagnosis Note [id number] KATELYNN PAEZ MD [facility] [address] [place] [address] 11/12/2016 10:48:58 11/12/2016 12:34:45 Crushing injury of finger 36841859 S67.191A At this point continued hand therapy would be helpful and I have recommende d a hand therapy referral to work with her, increasing and strengthen ing in mind muscle connection for the index finger is important as people tend to bypass it limiting the perceived range of motion. Osteoarthr itis of wrist 401992750 M19.031 Bilateral CMC arthritis Hand-based thumb spica splints Follow-up as needed, obtain x-rays Agree hyperprona suman view and 0 rotation PA neutral lateral and follow-up [id number] KATELYNN PAEZ MD [facility] [address] [address] 12/01/2016 15:29:39 12/01/2016 16:39:03 Crushing injury of finger 02198692 S67.191A Home exercises only, she can improve function without further impingemen tor changes and range of motionand I think that is preferable to her forcing it with more therapy. Osteoarthr itis of wrist 970343377 M19.031 Bilateral CMC arthritiss plints are helpful. [...] trigger finger on that side as well. [id number] KATELYNN PAEZ MD SURGERY SCHEDULE [address] [place] [address] 03/19/2017 11:17:35 03/19/2017 11:24:02 [id number] KATELYNN PAEZ MD [facility] [address] [place] [address] 03/31/2017 13:48:41 03/31/2017 15:40:04 Osteoarthritis of wrist 896905513 M19.031 Doing well status post right thumb CMC arthroplas ty, trigger finger release long finger, 2 weeks out. Follow-up 1 month no x-rays [id number] KATELYNN PAEZ MD [facility]I [facility] [address] [address] 05/01/2017 10:19:34 05/01/2017 11:52:24 Osteoarthritis of wrist 881978008 M19.031 Doing great 6 weeks postop, also with trigger finger release, schedule left at her [facility] e, she will call to schedule [id number] KATELYNN PAEZ MD SURGERY SCHEDULE [address] [place] [address] 09/01/2017 06:05:50 09/01/2017 06:08:50 [id number] VALENCIA HARP PA-C [facility] [address] [place] [address] 09/14/2017 12:37:34 09/14/2017 14:04:34 Osteoarthritis of wrist 992602480 M19.031 doing well status post left thumb CMC arthroplas ty was suspension plasty and release of the left long trigger finger. [id number] KATELYNN PAEZ MD [facility] [address] [place] [address] 10/07/2017 15:40:54 10/07/2017 17:04:02 Osteoarthritis of wrist 853165415 M19.031 doing well status post left thumb CMC arthroplas ty was suspension plasty and release of the left long trigger finger Neuroma 897658433 D36.10 Superficia l branch radial nerve, IRecommend angelaz ation, Follow-up 6 weeks, we will do therapy for restoratio n of range of motion and function in the meanwhile [id number] KATELYNN PAEZ MD [facility] [address] [address] 11/18/2017 13:03:12 11/18/2017 14:03:33 Osteoarthritis of wrist 119920213 M19.031 doing well status post left thumb CMC arthroplas ty was suspension plasty and release of the left long trigger finger, she has developed flexor tendon adhesions to the MP joint capsule with a pseudo-bow stringing. We will observe this. I cut out all therapy other than working on this Neuroma 139137674 D36.10 Superficia l branch radial nerve, observe for now, seems to be improving. Follow-up 6 weeks [id number] KATELYNN PAEZ MD [facility] [address] [place] [address] 12/30/2017 15:32:12 12/30/2017 16:34:52 Osteoarthritis of wrist 899712939 M19.031 Osteoarthr itis doing well she will do exercises on her own Neuroma 808295722 D36.10 Superficia l branch radial nerve, Improving Trigger finger 694326308 1 21333 M65.30 Trigger finger release complicate d by MP flexion contractur e. Figure-of- eight splint for PIP joint which is starting to hyperexten d And snap. Follow-up in the spring or whenever she is ready to discuss MP joint volar capsulecto my with postoperat kushal splinting [id number] KATELYNN PAEZ MD [facility] [address] [place] [address] 04/26/2018 10:09:03 04/26/2018 12:24:42 Trigger finger 3867330666 86941 M65.30 Trigger finger release complicate d by [...] needed. It is likely to be intact. [id number] KATELYNN PAEZ MD SURGERY SCHEDULE [address] [place] [address] 05/25/2018 08:20:20 05/25/2018 08:23:27 [id number] KATELYNN PAEZ MD [facility] [address] [place] [address] 06/04/2018 10:13:01 06/04/2018 13:20:49 Trigger finger 8625059293 84330 M65.30 2 weeks status post release MP flexion contractur e, A2 roby reconstruc tion with FDS tenodesis and PIP joint pinning. Continue DIP range of motion MP range of motion including passive MP extension, no blocking for DIP motion, follow-up next week for pin check [id number] KATELYNN PAEZ MD [facility] [address] [place] [address] 06/11/2018 07:46:12 06/11/2018 10:30:15 Trigger finger 4300686838 99428 M65.30 17d weeks status post release MP flexion contractur e, A2 roby reconstruc tion with FDS tenodesis and PIP joint pinning. Follow-up on June 21 or June 23, Valencia Leong , x-rays. Pin removal. Sent back to [facility] to have a digit dorsal block splint and begin range of motion of PIP joint with dorsal block, preventing hyperexten david of the PIP joint. Follow-up after that at the 6 week point. [id number] VALENCIA HARP PA-C [facility] [address] [address] 06/21/2018 13:48:20 06/22/2018 07:45:58 Trigger finger 0511918073 39223 M65.332 Trigger finger release complicate d by MP flexion contractur e. Figure-of- eight splint for PIP joint which is starting to hyperexten d And snap.;, status post corrective surgery [id number] KATELYNN PAEZ MD [facility] [address] [place] [address] 07/19/2018 15:47:02 07/19/2018 17:03:30 Trigger finger 4264131210 44384 M65.332 Status post MP capsulecto my, PIP capsulodes is. Doing well, tape or therapy. Progress to full use, follow-up 6 weeks [id number] KATELYNN PAEZ MD [facility] [address] [address] 08/27/2018 10:05:08 08/27/2018 10:42:55 Trigger finger 1356095484 89720 M65.332 Doing great. Full use. Follow-up as needed. Successful reconstruc tion/linda ge [id number] NILAM RAYMOND R, STEAM TURBINE ASSEMBLER DAK HINTON [address] [place] [address] 02/03/2024 10:42:06 02/03/2024 15:24:06 History of malignant neoplasm of skin 343165022 Z85.828 last skin cancer - 2020 - No evidence of recurrence today- Call with any worrisome lesions or if treated lesions return- Return at regular intervals for skin exam as recommende d Multiple b enign melanocytic nevi 327762583 D22.5 - Benign moles seen on exam [...] changing or worrisome lesions Seborrheic keratosis 394 803898 L82.1 - Benign overgrowth s of skin- Hereditary *No charge SK* Senile angioma 4182221 I 78.1 - Benign blood vessel growths - Hereditary Solar lentigo 69124571 L 81.4 - Benign brown spots - [...] before summer. Will re-evaluat e next fall. [id number] JESSICA FERMIN HINTON [address] [place] [address] 08/30/2024 11:14:12 08/30/2024 13:13:51 Multiple benign melanocytic nevi 079895318 D22.5 - Benign moles seen on exam [...] changing or worrisome lesions Seborrheic keratosis 394 959780 L82.1 - Benign overgrowth s of skin - Hereditary Senile angioma 7259079 I 78.1 - Benign blood vessel growths - Hereditary Solar lentigo 79846894 L 81.4 - Benign brown spots - Sun-induce d History of malignant neoplasm of skin 457587943 Z85.828 Long hx of NMSC. Most recent 2020 - No evidence of recurrence today- Call with any worrisome lesions or if treated lesions return- Return at regular intervals for skin exam as recommende d Actinic keratosis 846014 007 L57.0 Actinic keratoses are precancero us lesions that may progress to squamous cell carcinoma if untreated. UV light and genetics may increase risk. Treated lesions should blister, scab over, and heal within a few weeks. If treated lesion(s) does not resolve within 1-2 months, patient agrees to follow up for re-evaluat ion. [id number] NILAM Roque APRN [facility] [address] [place] [address] 08/30/2025 09:22:45 08/30/2025 10:58:46 History of malignant neoplasm of skin 707080173 Z85.828 most recent skin cancer 04/2021 - No evidence of recurrence today- Call with any worrisome lesions or if treated lesions return- Return at regular intervals for skin exam as recommende d Multiple b enign melanocytic nevi 774616641 D22.5 - Benign moles seen on exam [...] changing or worrisome lesions Seborrheic keratosis 394 861265 L82.1 - Benign overgrowth s of skin - Hereditary Senile angioma 4046444 I 78.1 - Benign blood vessel growths - Hereditary Solar lentigo 06484182 L 81.4 - Benign brown spots - Sun-induce d Neoplasm o f uncertain behavior of skin 92822956 D48.5 Recommend blade biopsy. Risks, benefit, and procedure discussed with patient. Consent obtained. Discussed the biopsy only takes the top layer of the lesion for testing. This does NOT treat the skin cancer if it is one. Advised they would need to return for more treatment given the type and depth of the skin cancer when the results come in. Solar degeneration 73760 006 L57.8 766 Diffuse damage to the [...] (MEDICARE REPLACEMENT/A DVANTAGE - PPO) Reba Arita [id number] Reba Arita 09/25/2017 A[place] - [place] [employer] [place] [employer] Reba Arita 02/03/2024 1 [place] [id number] Reba Arita [id number] Reba Arita Notes Date Note Type [...] related, patient reportsno. 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 PIP joint does not hyperextend. KATELYNN PAEZ MD [address] [place] [address], [address], [facility] 07/19/2018 16:48:57 08/27/2018 text/html Hand SurgeryRepo rted [...] concerns Doing well KATELYNN PAEZ MD [address] [place], [address], [facility] 08/27/2018 10:31:14 02/03/2024 text/html ROS as noted in the HPI Here for a full body skin examination - last skin check: Jul 2023 - history of skin cancer - SCC - last skin cancer was in 04/2021 - spots of concern today: I have multiple concerns. NILAM PRATHER, JESSICA [address] [place], [address], [facility] 02/03/2024 11:16:24 08/30/2024 text/html ROS as noted in the HPI Here for a full body skin examination- last skin check: 02/13- history of skin cancer - SCC- last skin cancer was in 04/2021- spots of concern today: face, chest NILAM PRATHER APRN [address] [place], [address], [facility] 08/30/2024 17:03:03 08/30/2025 text/html ROS as noted in the HPI Here for a full body skin examination- last skin check: 08/2024 - history of skin cancer - BCC & SCC - last skin cancer was in: 04/2021 - spots of concern today: Chest, midline upper back, R hand, 2 moles on the back, R elbow, and widespread of face. NILAM PRATHER APRN [address] [place], [address], [facility] 08/30/2025 14:55:19 OBGyn Episode No OBEpisode recorded.
--- OUTSIDE RECORDS SUMMARY | 2025-10-18 13:18 | XMS_ITS | Continuity of Care Document ---
Author Organization [facility] NEEMA Chinchilla [place] Address [address] [place] [address] Care Team Providers Care Commodities Requirements Analyst Name Role Phone CHANO ANSHU Primary Care Provider Assessment No assessment recorded. Plan of Treatment Reminders Order Date Submit Date Provider Last Modified By Organization Details Last Modified Time Details Appointments DERM SU PETER 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 Procedures None allan rded . Surgeries None allan rded . Imaging None allan rded . Medication Orders Efud ex 5 % topi keyanna garcia 2024 025 [facility], [address], [address], 08/30/2025 11:26:08 Patient TargetsNo targets recorded. Patient Instructions Encounter Date Encounter Id Patient Instructions Last Modified By Organization Details Last Modified Time 08/30/2025 [id number] planning to go t o [place] in Dec 2025 [email or web address] Not available 08/30/2025 10:24:47 Reason for Referral None Reported. Results Created Date Observation Date Name Description Value Unit Range Abnormal Flag Note LastModifiedBy Organization Detail LastModifiedTime 08/30/2008/30/2025 SURGI KEYANNA surgical SEE BELOW [place] topat holog y Repor t NAME: REBA ROMO PATH: [id number] PROCE DURE DATE: 08/30 SIGNO UT [...] Out Date: 08/31 11:50 1 Not Available [facility] [address] [place], [address], 08/31/2025 11:50:25 Result Notes None recorded. Problems No Known Problems Procedures Surgical History Date Name Laterality Status Provider Name and Address Organization Details Recorded Time 08/30/20 25 DAK - [facility] 08/30/2025 10:23:27 08/30/20 24 Destruction Premalignant Lesion(s[facility] 08/30/2024 11:56:17 02/03/20 24 Destruction Premalignant Lesion(s) completed [facility] 02/03/2024 11:12:01 02/03/20 24 Destruction BN Lesions completed [facility] 02/03/2024 11:10:27 09/01/20 17 Orthopedic Surgery completed Emily Agudelo [facility] 11/18/2017 13:27:14 04/23/20 10 Total hip arthroplasty completed Lali Brower [facility] 11/12/2016 11:17:12 Imaging Results None recorded. Procedure Notes None recorded. Medical Equipment None Reported. Allergies Allergen ID Allergen Name Allergen Category Reaction Reaction Severity Criticality Documentation Date Start Date Code Code System Note Provider Name and Address Organization Details Recorded Time 938132 Augmentin medicatio n Not available Not available Not available 12/30/2017 22063 2 RxNorm Madison Chacko [facility] 8 15:49:42 667244 Levaquin medicatio n Not available Not available Not available 12/30/2017 62146 2 RxNorm Crystal Ricco [facility] 8 15:49:49 370563 Substance with sulfonami de structure and antibacte rial mechanism of action (substanc e) medicatio n Not available Not available Not available 08/30/2024 09670 8003 SNOMED Chrissy Mirzacarol [facility] 4 11:42:13 Medications Name Sig Start [...] completed Not Available Not Available Not Available [place] 10 mg-325 mg tablet TAKE 1/2-1 TABLET [...] Tobacco Smoking Status Never Smoker Lali Brower [facility] 11/12/2016 11:14:06 Accident Related Injury No [email or web address] Information not available 11/18/2017 What Is Your [...] This Be Filed As Workers' Compensation? 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 Family History Relationship Description Onset Age of this Age Resolved Age Notes LastModified by Organization Details LastModified Time Mother Arthritis [email or web address] Not available 11/12/2016 11:13:16 Mother Hypertensive disorder kduffie Not available 2015 11:13:34 Maternal Grandmother Arthritis kduffie Not available 10/24 11:13:16 Medical History Condition Response Allergies/Hayfever Y Anxiety/Depression N Gout N Other N Squamous Cell Carcinoma Y Thyroid Disease N Heart Conditions N Kidney Stones Y Hernia N Migraines N COPD N Glaucoma N Pneumonia N Immune System Disorder N Anesthesia Complications N Heart Attack ([place]) N Mental Illness N Neurological Problems N [...] ICD10 Code Diagnosis IMO Codes Diagnosis Note [id number] NILAM Roque APRN [facility] [address] [place] [address] 08/30/2025 09:22:45 08/30/2025 10:58:46 History of malignant neoplasm of skin 943472649 Z85.828 most recent skin cancer 04/2021 - No evidence of recurrence today- Call with any worrisome lesions or if treated lesions return- Return at regular intervals for skin exam as recommende d Multiple b enign melanocytic nevi 096603185 D22.5 - Benign moles seen on exam [...] changing or worrisome lesions Seborrheic keratosis 394 401723 L82.1 - Benign overgrowth s of skin - Hereditary Senile angioma 9480142 I 78.1 - Benign blood vessel growths - Hereditary Solar lentigo 28394184 L 81.4 - Benign brown spots - Sun-induce d Neoplasm o f uncertain behavior of skin 06011727 D48.5 Recommend blade biopsy. Risks, benefit, and procedure discussed with patient. Consent obtained. Discussed the biopsy only takes the top layer of the lesion for testing. This does NOT treat the skin cancer if it is one. Advised they would need to return for more treatment given the type and depth of the skin cancer when the results come in. Solar degeneration 77326 006 L57.8 766 Diffuse damage to the [...] (MEDICARE REPLACEMENT/A DVANTAGE - PPO) Reba Arita [id number] Reba Arita Notes Date Note Type Note [...] elbow, and widespread of face. NILAM PRATHER, BANK RUNNER [address] [place], [address], [facility] 08/30/2025 14:55:19 OBGyn Episode No OBEpisode recorded.
[2025-10-18 13:30] VITALS: BP 136/75; PULSE 87; RESP 20; TEMP 36.6; O2SAT 97
[2025-10-18] MEDS: ZOLEDRONIC ACID/MANNITOL-WATER 5 MG/100 ML PGGYBK.BTL 400 MG IV (13:30)
[2025-10-18] MEDS: 0.9 % SODIUM CHLORIDE 50 ML 25 ML IV (13:58)
== END 2025-10-18 23:59 | disposition home or self-care (01) ==
LOC: INF 13:15
PROVIDERS: PCP Physician Assistant; Visit Provider Student in an Organized Health Care Education/Training Program
DX: M81.0 Age-related osteoporosis without current pathological fracture (principal)
CPT/HCPCS: 96374; J3489

== ENCOUNTER 2025-11-21 06:27 | Emergency (ER) | payer MEDICARE, SELFPAY ==
--- OUTSIDE RECORDS SUMMARY | 2024-07-27 05:15 | XMS_ITS ---
[facility] [address] [facility] [address] [place] [id number] Care Team Providers Care Compliance Director Name Role Phone Jude Cao Primary Care Provider [phone] Kori Octavia Unavailable [phone] Allergies Allergen (clinical drug ingredient) Drug/Non Drug Allergy documented on EMR Reaction Allergy Type Onset Date Status amoxicillin / clavulanate Augmentin shaking Drug Allergy Active Levaquin achilles tendon swells up Drug Allergy Active Results Component Value Reference Range Notes CBC Fingerstick (in house) Reviewed date:07/27/2024 01:12:11 PM Interpretation: Performing Lab: Notes/Report: wbc 5.2 3.5 - 10 lym 41.3% 15 - 50 mid 8.2% 2 - 15 gran 50.5% 35 - 80 rbc 4.76 3.5 - 5.5 hgb 14.4 11.5 - 16.5 hct 43.1 35 - 55 mcv 90.6 75 - 100 mch 30.2 25 - 35 mchc 33.3 31 - 38 plat 147 100 - 400 H-TSH Reviewed date:07/28/2024 12:15:33 PM Interpretation: Performing Lab: Notes/Report: TSH 1.37 0.465-4.68 uIU/mL H-VITAMIN D Reviewed date:07/28/2024 12:15:33 PM Interpretation: Performing Lab: Notes/Report: TVITD 60.0 30-100 ng/mL Deficient <20 ng/mL Insufficient 20-30 ng/mL Sufficient 30-100 ng/mL Potential Toxicity >100 ng/mL H-Lipid Panel Reviewed date:07/28/2024 12:15:33 PM Interpretation: Performing Lab: Notes/Report: Patient Fasting? Y TRIG 91 30-150 mg/dl CHOL 152 140-200 mg/dl DLDL 62.31 100-129 mg/dL VLDL 18 0-40 mg/dL HDL 56 40-60 mg/dl CHLHDL 2.7 1-3.5 H-CMP Reviewed date:07/28/2024 12:15:33 PM Interpretation: Performing Lab: Notes/Report: NA 137 136-145 mmol/L K 4.1 3.5-5.1 mmoL/L CL 107 98-107 mmol/L CO2 25 22.0-30.0 mmol/L GAP 9.1 5-15 mEq/L BUN 10 7-17 mg/dl CREATT 0.70 0.52-1.04 mg/dl GFRAA 100 >60 ML/MIN EGFR 83 >60 ml/min GLU 88 74-100 mg/dl CA 9.7 8.4-10.2 mg/dl BILIT 0.6 0.2-1.3 mg/dl AST 22 14-36 U/L ALT 18 12-78 U/L TP 6.7 6.3-8.2 g/dl ALB 4.2 3.5-5.0 g/dl GLOB 2.5 1.3-3.2 g/dL AGRATIO 1.7 1.1-1.8 ALP 98 38-126 U/L H-Ferritin Reviewed date:07/28/2024 12:15:33 PM Interpretation: Performing Lab: Notes/Report: AGUSTO 253 11.1-264 ng/ml H-Iron Reviewed date:07/28/2024 12:15:33 PM Interpretation: Performing Lab: Notes/Report: FE 102 37-170 ug/dL Covid test (in house) Reviewed date:07/27/2024 01:12:11 PM Interpretation: Performing Lab: Notes/Report: Result: Neg REASON FOR VISIT checkup and refills Medications Medication SIG (Take, Route, Frequency, Duration) Notes Start Date End Date Status Meclizine HCl 12.5 MG 1 tab(s) orally 3 times a day prn Active Ondansetron 4 MG 1 tablet on the tong ue and allow to dissolve Orally three times a day as needed Active Fexofenadine HCl 180 MG 1 tablet swallow whole with water; do not take with fruit juices. Orally Once a day; Duration: 30 day(s) 05/05/2024 Active Iron 325 (65 Fe) MG 1 tablet Orally Thre e times a Week; Duration: 30 day(s) Not-Taking Benzonatate 200 MG 1 capsule as needed Orally Three times a day 07/27/2024 Active Vitamin C - as directed Orally Active Clobetasol Propionate 0.05 % 1 josee applied topically 2 times a day prn Active Vitamin E 400 UNIT 1 cap(s) orally once a day Active Prolia 60 MG/ML subcutaneously every 6 months Active Ibuprofen 800 MG 1 tab(s) orally 3 ti mes a day as needed 05/23/2019 Active MiraLax 17 GM/SCOOP as directed Orally Active Glucosamine Chondroitin MSM - as directed Orally Active Famotidine 20 MG 1 tab(s) orally once a day (at bedtime) Active Ginkgo Biloba 120 MG as directed Orally once a day Active Vitamin D 50 MCG (2000 UT) 1 capsule Orally Once a day; Duration: 30 day(s) Active Atorvastatin Calcium 10 MG take 1 tablet by mouth once daily Orally once daily; Duration: 90 days Active Azelastine-Fluticasone 137-50 MCG/ACT 1 spray in each nostril Nasally Twice a day 05/05/2024 Active Montelukast Sodium 10 MG take 1 tablet by mouth once daily Orally once daily; Duration: 90 days Active Bisoprolol Fumarate 5 MG take 1 tablet by mouth once daily Orally once daily; Duration: 90 days Active Vital Signs Weight 148.0 lbs 07/27/2024 Blood pressure systolic 168 mm Hg 07/27/20 24 Blood pressure diastolic 90 mm Hg 024 Heart Rate 63 /min 07/27/2024 Height 65 in 07/27/2024 BMI 24.63 kg/m2 07/27/2024 Encounters Encounter Location Date Provider Diagnosis [facility] [address] [facility] [address] [place], [place] [id number] 07/27/2024 Octavia Sheikh Hypertension, unspecified type I10 ; Allergic rhinitis, unspecified seasonality, unspecified trigger J30.9 ; Dyslipidemia E78.5 ; Iron deficiency E61.1 ; Vitamin D deficiency E55.9 ; Paroxysmal atrial fibrillation I48.0 and Acute URI J06.9 Assessments Encounter Date Diagnosis (ICD Code) Assessment Notes Treatment Notes Treatment Clinical Notes Section Notes 07/27/2024 Hypertension, unspecified type (ICD-10 - I10) 07/27/2024 Allergic rhinitis, unspecified seasonality, unspecified trigger (ICD-10 - J30.9) 07/27/2024 Dyslipidemia (ICD-10 - E78.5) 07/27/2024 Iron deficiency (ICD-10 - E61.1) 07/27/2024 Vitamin D deficiency (ICD-10 - E55.9) 07/27/2024 Paroxysmal atrial fibrillation (ICD-10 - I48.0) 07/27/2024 Acute URI (ICD-10 - J06.9) Plan Of Treatment Medication Medication Name Sig Start Date Stop Date Notes Benzonatate 200 MG 1 capsule as needed Orally Three times a day 07/27/2024 Atorvastatin Calcium 10 MG take 1 tablet by mouth once daily Orally once daily; Duration: 90 days Azelastine-Fluticasone 137-5 0 MCG/ACT 1 spray in each nostril Nasally Twice a day 05/05/2024 Montelukast Sodium 10 MG take 1 tablet b y mouth once daily Orally once daily; Duration: 90 days Bisoprolol Fumarate 5 MG take 1 tablet b y mouth once daily Orally once daily; Duration: 90 days Next Appt Details Follow Up: via phone to repo rt test results, Reason: Progress Notes * AVELINA SOLOMONOB:1955 (69 yo F)Acc No.[id number]:07/27/2024 Progress Notes Patient: NORBERTO BONNER Provider: VINCE Alcocer :1955 A ge:68 Y S ex:Female Date:07/27/2024 Address:[address] [place] [address] [id number] Pcp:Jude Cao Subjective: * Chief Complaints: * 1 . Checkup and refills. * HPI: C ardiology: The patient is here for a check up. Pt states she is having left sided sinus pain due to the roots of her teeth growing into her sinuses. Pt states it is painful to bite. down. Pt is not fasting. Pt [facility]. Denies : Chest Pain. D enies : Short of Breath. D enies : Dizziness. D enies : Palpitations. * ROS: D ERMATOLOGY: no R bulmaro. n o H chanel. G ASTROENTEROLOGY: no N ausea. n o V omiting. n o D iarrhea.? U ROLOGY: no D ifficulty urinating. n o B lood in urine. 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 Rodriguez. * Surgical History: E P study-heart Dr Wilson 12/08/03, Basal Cell removed from nose Dr Nam 08/04/06, Neuroma removed from left foot (mortons neuroma) Dr Yesenia Wadsworth 07/19/07, Stump neuroma removed from left foot 05/10/08, total left hip replacement Dr Patterson 05/03/10, Basal cell removed from nose Dr Nam 10/15/10, right thumb and trigger finger-Dr Harrington 03/19/17, left thumb and trigger finger-Dr Harrington 09/01/17, C-scope 2014, [facility]- spot removed on head and chest , Full Hysterectomy - Dr. Johnson 03/09/2024. * Family History: F ather: 87 yrs, heavy smoker, a-fib. M other: 86 yrs, alzheimer's dementia. 1 brother(s) . 2 son(s) . . * Social History: C URRENT TOBACCO USE: No . C affeine: yes, frequency: coffee, 1 cup a day, tea, soft drink on occasion. Home smoke detector use: yes. Alcohol: No. * Medications: T aking Ginkgo Biloba 120 MG Tablet as directed Orally once a day , Taking Vitamin D 50 MCG (2000 UT) Capsule 1 capsule Orally Once a day , Taking MiraLax 17 GM/SCOOP Powder as directed Orally , Taking Glucosamine Chondroitin MSM - Tablet as directed Orally , Taking Famotidine 20 MG Tablet 1 tab(s) orally once a day (at bedtime) , Taking Clobetasol Propionate 0.05 % Cream 1 josee applied topically 2 times a day , Notes to Pharmacist: prn, Taking Vitamin E 400 UNIT Capsule 1 cap(s) orally once a day , Taking Prolia 60 MG/ML Solution Prefilled Syringe subcutaneously every 6 months , Taking Ibuprofen 800 MG Tablet 1 tab(s) orally 3 times a day as needed , Taking Bisoprolol Fumarate 5 MG Tablet take 1 tablet by mouth once daily Orally once daily , Taking Atorvastatin Calcium 10 MG Tablet take 1 tablet by mouth once daily Orally once daily , Taking Montelukast Sodium 10 MG Tablet take 1 tablet by mouth once daily Orally once daily , Taking Vitamin C - Tablet Chewable as directed Orally , Taking Meclizine HCl 12.5 MG Tablet 1 tab(s) orally 3 times a day prn , Taking Ondansetron 4 MG Tablet Disintegrating 1 tablet on the tongue and allow to dissolve Orally three times a day as needed , Taking Fexofenadine HCl 180 MG Tablet 1 tablet swallow whole with water; do not take with fruit juices. Orally Once a day , Taking Azelastine-Fluticasone 137-50 MCG/ACT Suspension 1 spray in each nostril Nasally Twice a day , Not-Taking Iron 325 (65 Fe) MG Tablet 1 tablet Orally Three times a Week , Medication List reviewed and reconciled with the patient * Allergies: L evaquin: achilles tendon swells up , Augmentin: shaking. Objective: * Vitals: W t:148.0, Temp:98.2, BP:168/90, HR:63, Nurse:MADELINE, Ht: 65, Repeat BP:130/78, BMI:24.63. * Examination: G eneral Examination: General Appearance: N AD. H EENT: sclera and conjunctiva clear, PERRLA, TM's normal, translucent, nose congested. O ral cavity: n o lesions, mucosa moist and WNL, no erythema, PND present. N dorothy: s upple, no lymphadenopathy. C hest: n ormal shape and expansion. H eart: R SR. L ungs: c lear to auscultation.?Abdomen: bowel sounds present, soft and nontender, no organomegaly or masses, no guarding or rigidity. N eurologic Exam: I ntact, gait normal. S kin: n ormal, no rash. P eripheral pulses: n ormal (2+) bilaterally. E xtremities: n o leg edema. ? Assessment: * Assessment: 1. H ypertension, unspecified type - I10 (Primary) 2 . A llergic rhinitis, unspecified seasonality, unspecified trigger - J30.9 3 . D yslipidemia - E78.5? 4. I fidel deficiency - E61.1 5 . V itamin D deficiency - E55.9 6 . P aroxysmal atrial fibrillation - I48.0 7 . A cute URI - J06.9 Plan: * Treatment: Value Reference Range T SH 1.37 0.465-4.68 - uIU/mL * Octavia Sheikh 07/28/2024 12: 15:27 PM > see TE ?LAB: H-CMP (Collection Date & Time - 07/28/2024 08:46 AM)* Value Reference Range N A 137 136-145 - mmol/L * K 4.1 3.5-5.1 - mmoL/L * C L 107 98-107 - mmol/L * C O2 25 22.0-30.0 - mmol/L * G AP 9.1 5-15 - mEq/L * B UN 10 7-17 - mg/dl * C REATT 0.70 0.52-1.04 - mg/dl * G FRAA 100 >60 - ML/MIN * E GFR 83 >60 - ml/min * G GUNNAR 88 74-100 - mg/dl * C A 9.7 8.4-10.2 - mg/dl * B ILIT 0.6 0.2-1.3 - mg/dl * A ST 22 14-36 - U/L * A LT 18 12-78 - U/L * T P 6.7 6.3-8.2 - g/dl * A LB 4.2 3.5-5.0 - g/dl * G LOB 2.5 1.3-3.2 - g/dL * A GRATIO 1.7 1.1-1.8 - * A LP 98 38-126 - U/L * Octavia Sheikh 07/28/2024 12: 15:27 PM > see TE 2.?Allergic rhinitis, unspecified seasonality, unspecified trigger? Refill Montelukast Sodium Tablet, 10 MG, take 1 tablet by mouth once daily, Orally, once daily, 90 days, 90, Refills 3;?Refill Azelastine-Fluticasone Suspension, 137-50 MCG/ACT, 1 spray in each nostril, Nasally, Twice a day, 1, Refills 5.??3.?Dyslipidemia? Refill Atorvastatin Calcium Tablet, 10 MG, take 1 tablet by mouth once daily, Orally, once daily, 90 days, 90, Refills 3.?LAB: H-Lipid Panel (Collection Date & Time - 07/28/2024 08:46 AM)* Value Reference Range T RIG 91 30-150 - mg/dl * C HOL 152 140-200 - mg/dl * D LDL 62.31 L 100-129 - mg/dL * V LDL 18 0-40 - mg/dL * H DL 56 40-60 - mg/dl * C HLHDL 2.7 1-3.5 - * Octavia Sheikh 07/28/2024 12: 15:27 PM > see TE 4.?Iron deficiency?LAB: H-Ferritin (Collection Date & Time - 07/28/2024 08:46 AM)* Value Reference Range F ER 253 11.1-264 - ng/ml * Octavia Sheikh 07/28/2024 12: 15:27 PM > see TE ?LAB: H-Iron (Collection Date & Time - 07/28/2024 08:46 AM)* Value Reference Range F E 102 37-170 - ug/dL * Octavia Sheikh 07/28/2024 12: 15:27 PM > see TE 5.?Vitamin D deficiency?LAB: H-VITAMIN D (Collection Date & Time - 07/28/2024 08:46 AM)* Value Reference Range T VITD 60.0 30-100 - ng/mL * Octavia Sheikh 07/28/2024 12: 15:27 PM > see TE 6.?Acute URI? Start Benzonatate Capsule, 200 MG, 1 capsule as needed, Orally, Three times a day, 30, Refills 2. ?LAB: CBC Fingerstick (in house) (Collection Date & Time - 07/27/2024)* Value Reference Range w bc 5.2 3.5 - 10 * l ym 41.3% 15 - 50 * m id 8.2% 2 - 15 * g ran 50.5% 35 - 80 * r bc 4.76 3.5 - 5.5 * h gb 14.4 11.5 - 16.5 * h ct 43.1 35 - 55 * m cv 90.6 75 - 100 * m ch 30.2 25 - 35 * m chc 33.3 31 - 38 * p lat 147 100 - 400 * Candy Olmos 07/27/2024 11:25:39 AM > , Provider reviewed results while patient in office. ?LAB: Covid test (in house) (Collection Date & Time - 07/27/2024)* Value Reference Range R esult: Neg * Kylee Soto 07/27/2024 12:4 7:33 PM > , Provider reviewed results while patient in office. * Procedure Codes: 3 6416 CAPILLARY BLOOD DRAW, 84533 CBC WITH AUTO DIFF, 70517 COVID TEST IN HOUSE, Modifiers: QW * Follow Up: v ia phone to report test results * Images: Billing Information: * Visit Code: 28281 Office Visit, Est Pt., Level 4. * Procedure Codes: 01183 CAPILLARY BLOOD DRAW. 98984 CBC WITH AUTO DIFF. 36175 COVID TEST IN HOUSE. Modifiers: QW * Electronic signature of VINCE Barahona on 11/21/2025 at 06:34 AM EST Sign off status: Pending * Provider: VINCE Alcocer Date: 0 07/27/2024 Generated for Shanda romo/Lazaro/eTransmitting on: 1 06:34 AM EST History and Physical Notes * HPI (History of Present Illness) Category Sub-Category Detail Notes Category Not es Cardiology Short of Breath Chest Pain Palpitations Dizziness Examination Category Sub-Category Detail Notes Category Not es General Examination HEENT: sclera and c onjunctiva clear, PERRLA, TM's normal, translucent, nose congested Heart: RSR Lungs: clear to auscultatio n Abdomen: bowel sounds present , soft and nontender, no organomegaly or masses, no guarding or rigidity Extremities: no leg edema General Appearance: NAD Skin: normal, no rash Neurologic Exam: Intact, gait normal Neck: supple, no lymphaden opathy Oral cavity: no lesions, mucosa m oist and WNL, no erythema, PND present Peripheral pulses: normal (2+) bilatera lly Chest: normal shape and exp ansion
--- OUTSIDE RECORDS SUMMARY | 2024-11-24 11:15 | XMS_ITS ---
[facility] Address [address] [facility] [address] [facility] [address] [place] [id number] Care Team Providers Care Evp Business Development Name Role Phone Jude Cao Primary Care Provider [phone] Octavia Sheikh Unavailable [phone] Allergies Allergen (clinical drug ingredient) Drug/Non Drug Allergy documented on EMR Reaction Allergy Type Onset Date Status amoxicillin / clavulanate Augmentin shaking Drug Allergy Active Levaquin achilles tendon swells up Drug Allergy Active Results Component Value Reference Range Notes MRI : Brain with and w/o con trast Reviewed date:12/15/2024 10:45:27 AM Interpretation:no evidence of recent infarct, pituitary cyst Performing Lab: Notes/Report: no evidence of recent infarct, pituitary cyst Reason For Referral Diagnosis 1 Heart palpitations ( R00.2) Diagnosis 2 Dizziness (R42) Diagnosis 3 Recurrent syncope (R 55) [facility] Referring Provider First Name Octavia Referring Provider Last Name Kori Referring Provider Speciality Physician Laboratory Machinist Referred Provider Cardiology, . Referred Provider Specialty Cardiovascul ar Disease General Notes Octavia Sheikh 2024 11:46:58 PM > Needs appt with cardiology AUDRAEm Vang Brynn 11/25/2024 8:37:22 AM > faxed to [facility] Em Mensah Brynn 11/29/2024 11:30:11 AM > 11/29/2024 at 02:00pm Referral Priority Routine REASON FOR VISIT DIZZY and vertigo Medications Medication SIG (Take, Route, Frequency, Duration) Notes Start Date End Date Status Ibuprofen 800 MG 1 tab(s) orally 3 ti mes a day as needed 05/23/2019 Active Ondansetron 4 MG 1 tablet on the tong ue and allow to dissolve Orally three times a day as needed Acti ve Vitamin C - as directed Orally Active Meclizine HCl 12.5 MG 1 tab(s) orally 3 times a day prn Active Fexofenadine HCl 180 MG 1 tablet swallow whole with water; do not take with fruit juices. Orally Once a day; Duration: 30 day(s) 05/05/2024 Active Famotidine 20 MG 1 tab(s) orally once a day (at bedtime) Active Glucosamine Chondroitin MSM - as directed Orally Active Vitamin E 400 UNIT 1 cap(s) orally once a day Active Clobetasol Propionate 0.05 % 1 josee applied topically 2 times a day prn Active Prolia 60 MG/ML subcutaneously every 6 months Active Benzonatate 200 MG 1 capsule as needed Orally Three times a day 07/27/2024 Active Bisoprolol Fumarate 5 MG take 1 tablet b y mouth once daily Orally once daily; Duration: 90 days Active Vitamin D 50 MCG (2000 UT) 1 capsule Orally Once a day; Duration: 30 day(s) Active Ginkgo Biloba 120 MG as directed Orally once a day Active MiraLax 17 GM/SCOOP as directed Orally Active hydrOXYzine HCl 25 MG 1 tablet Orally ev luis eduardo 6 hrs, prn 11/24/2024 Active Sertraline HCl 25 MG 1 tablet Orally Onc e a day; Duration: 30 day(s) 11/24/2024 Active Atorvastatin Calcium 10 MG take 1 tablet by mouth once daily Orally once daily; Duration: 90 days Active Azelastine-Fluticasone 137-50 MCG/ACT 1 spray in each nostril Nasally Twice a day 05/05/2024 Active Montelukast Sodium 10 MG take 1 tablet b y mouth once daily Orally once daily; Duration: 90 days Active Problems Problem Type SNOMED Code ICD Code Onset Dates Problem Status W/U Status Risk Notes Problem Bilateral tinnitus (8935707439498) Tinnitus, bilateral (H93.13) Active confirmed Problem Generalized anxiety disorder (52874991) Anxiety, generalized (F41.1) Active confirmed Vital Signs Weight 144.2 lbs 11/24/2024 Blood pressure systolic 140 mm Hg 11/24/19 25 Blood pressure diastolic 92 mm Hg 025 Height 65 in 11/24/2024 BMI 23.99 kg/m2 11/24/2024 Encounters Encounter Location Date Provider Diagnosis [facility] [address] [place] [phone] 11/24/2024 Octavia Sheikh Syncope, unspecified syncope type R55 ; Dizziness R42 ; Heart palpitations R00.2 ; Tinnitus, bilateral H93.13 and Anxiety, generalized F41.1 Assessments Encounter Date Diagnosis (ICD Code) Assessment Notes Treatment Notes Treatment Clinical Notes Section Notes 11/24/2024 Syncope, unspecified syncope type (ICD-10 - R55) Just recently had labs checked. See patient docs. 11/24/2024 Dizziness (ICD-10 - R42) Patient is going to call and get in to see her ENT. 11/24/2024 Heart palpitations (ICD-10 - R00.2) 11/24/2024 Tinnitus, bilateral (ICD-10 - H93.13) Patient is going to call Dr. Bowen's office and make an appt. 11/24/2024 Anxiety, generalized (ICD-10 - F41.1) Plan Of Treatment Medication Medication Name Sig Start Date Stop Date Notes hydrOXYzine HCl 25 MG 1 tablet Orally every 6 hrs, prn 12/2024 Sertraline HCl 25 MG 1 tablet Orally Onc e a day; Duration: 30 day(s) 11/24/2024 Treatment Notes Assessment Notes Syncope, unspecified syncope type Just r ecently had labs checked. See patient docs. Dizziness Patient is going to call and get in to see her ENT. Tinnitus, bilateral Patient is going to call Dr. Garcia office and make an appt. Referrals Referral Date Details 11/24/2024 11/24/2024, . Cardio logy Next Appt Details Follow Up: via phone to repo rt test results, Reason: Progress Notes * AVELINA SOLOMONOB:1955 (69 yo F)Acc No.[id number]:11/24/2024 Progress Notes Patient: NORBERTO BONNER Provider: VINCE Alcocer :1955 A ge:68 Y S ex:Female Date:11/24/2024 Address:[address] [place], [id number] Pcp:Jude Cao Subjective: * Chief Complaints: * 1 . DIZZY and vertigo. * HPI: N eurology: 68 year old female presents with c/o Dizziness P t sts t his may be due to a nxiety. Pt sts this has been going on for over 5 years, but is recently getting worse. Pt sts she gets tunnel vision and then seems like she is going to have a panic attack. She has actually passed out on numerous occasions. This is not like her typical vertigo symptoms. When she gets vertigo t he w hole room spins and she will vomit for hours and have to take meclizine and go to bed. This happens a few times a year. The episodes where she gets tunnel vision are becoming more frequent. She gets SOA and has a headache and then states she gets weak and has to put her head down or she passes out. She has had heart palpitations as well. She never saw cardiology when she was having chest pain and SOA after her recent surgery because she began feeling better. She also has a ringing in both ears constantly. She was going to make an appt with Dr. Bowen (ENT) but the wait time was 3 months so she did not schedule one. She states the episodes seem to get worse when she is in large crowds like [employer], but they have happened in the car and in other places as well. Loud stimuli seems to make them worse.. * ROS: D ERMATOLOGY: no R bulmaro. n o H chanel. G ASTROENTEROLOGY: no N ausea. n o V omiting. n o D iarrhea.? U ROLOGY: no D ifficulty urinating. n o B lood in urine. 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 * Surgical History: E [...] yes. Alcohol: No. * Medications: T aking Atorvastatin Calcium 10 MG Tablet take 1 tablet by mouth once daily Orally once daily , Taking Montelukast Sodium 10 MG Tablet take 1 tablet by mouth once daily Orally once daily , Taking Azelastine-Fluticasone 137-50 MCG/ACT Suspension 1 spray in each nostril Nasally Twice a day , Taking Bisoprolol Fumarate 5 MG Tablet take 1 tablet by mouth once daily Orally once daily , Taking Benzonatate 200 MG Capsule 1 capsule as needed Orally Three times a day , Taking Ginkgo Biloba 120 MG Tablet as directed [...] times a day as needed , Taking Vitamin C - Tablet Chewable as directed Orally , Taking Ondansetron 4 MG Tablet Disintegrating 1 tablet on the tongue and allow to dissolve Orally three times a day as needed , Taking Fexofenadine HCl 180 MG Tablet 1 tablet swallow whole with water; do not take with fruit juices. Orally Once a day , Taking Meclizine HCl 12.5 MG Tablet 1 tab(s) orally 3 times a day prn , Medication List reviewed and reconciled with the patient * Allergies: L evaquin: achilles tendon swells up , Augmentin: shaking. Objective: * Vitals: W t:144.2, Temp:98.4, BP:140/92, Nurse:[facility], Ht: 65, Repeat BP:128/90, BMI:23.99. * Examination: G eneral Examination: General Appearance: N AD. H EENT: u nremarkable.?Oral cavity: n o lesions, mucosa moist and WNL, no erythema. N dorothy: s upple, no lymphadenopathy. C hest: n ormal shape and expansion. H eart: R SR. L ungs: c lear to auscultation. A bdomen: bowel sounds present, soft and nontender, no organomegaly or masses, no guarding or rigidity. N eurologic Exam: alert and oriented, normal cranial nerves II-XII sensory & motor WNL, unsteady on rhomberg. S kin: n ormal, no rash. P eripheral pulses: n ormal (2+) bilaterally. E xtremities: n o leg edema. ? Assessment: * Assessment: 1. S yncope, unspecified syncope type - R55 (Primary) 2 . D izziness - R42? 3. H eart palpitations - R00.2 4 . T innitus, bilateral - H93.13 5 . A nxiety, generalized - F41.1 Plan: * Treatment: Notes: Just recently had labs checked. See patient docs.??2.?Dizziness?Imaging: MRI : Brain with and w/o contrast (Performed Date - 12/07/2024)?no evidence of recent infarct, pituitary cyst* Magi Strickland 11/25/2024 1:04:5 1 PM > auth#[id number]; valid 11/25/2024 through 01/24/2025; CPT code 29804; faxed to [facility] [place] Octavia Lares 12/15/2024 10:45:20 AM > see TE Notes: Patient is going to call and get in to see her ENT.? Referral To:. Cardiology??Cardiovascular Disease ?Reason: 3.?Heart palpitations? Referral To:. Cardiology??Cardiovascular Disease ?Reason: 4.?Tinnitus, bilateral?Imaging: MRI : Brain with and w/o contrast (Performed Date - 12/07/2024)?no evidence of recent infarct, pituitary cyst* Magi Strickland 11/25/2024 1:04:5 1 PM > auth#[id number]; valid 11/25/2024 through 01/24/2025; CPT code 55718; faxed to [facility] [place] Octavia Lares 12/15/2024 10:45:20 AM > see TE Notes: Patient is going to call Dr. Bowen's office and make an appt.??5.?Anxiety, generalized? Start Sertraline HCl Tablet, 25 MG, 1 tablet, Orally, Once a day, 30 day(s), 30 Tablet, Refills 0; Start hydrOXYzine HCl Tablet, 25 MG, 1 tablet, Orally, every 6 hrs, prn, 30, Refills 0.? 6.?Others? Referral To:. Cardiology??Cardiovascular Disease ?Reason: * Follow Up: v ia phone to report test results * Images: Billing Information: * Visit Code: 16001 Office Visit, Est Pt., Level 4. * Procedure Codes: * Electronic signature of VINCE Barahona on 11/21/2025 at 06:35 AM EST Sign off status: Pending * Provider: VINCE Alcocer Date: 0 11/24/2024 Generated for Shanda romo/Lazaro/eTransmitting on: 1 06:35 AM EST History and Physical Notes * HPI (History of Present Illness) Category Sub-Category Detail Notes Category Not es Neurology Dizziness Pt sts this may be due to anxiety. Pt sts this has been going on for over 5 years, but is recently getting worse. Pt sts she gets tunnel vision and then seems like she is going to have a panic attack. She has actually passed out on numerous occasions. This is not like her typical vertigo symptoms. When she gets vertigo the whole room spins and she will vomit for hours and have to take meclizine and go to bed. This happens a few times a year. The episodes where she gets tunnel vision are becoming more frequent. She gets SOA and has a headache and then states she gets weak and has to put her head down or she passes out. She has had heart palpitations as well. She never saw cardiology when she was having chest pain and SOA after her recent surgery because she began feeling better. She also has a ringing in both ears constantly. She was going to make an appt with Dr. Bowen (ENT) but the wait time was 3 months so she did not schedule one. She states the episodes seem to get worse when she is in large crowds like [employer], but they have happened in the car and in other places as well. Loud stimuli seems to make them worse. Examination Category Sub-Category Detail Notes Category Not es General Examination HEENT: unremarkable Heart: RSR Lungs: clear to auscultatio n Abdomen: bowel sounds present , soft and nontender, no organomegaly or masses, no guarding or rigidity Extremities: no leg edema General Appearance: NAD Skin: normal, no rash Neurologic Exam: alert and oriented, normal cranial nerves II-XII sensory & motor WNL, unsteady on rhomberg Neck: supple, no lymphaden opathy Oral cavity: no lesions, mucosa m oist and WNL, no erythema Peripheral pulses: normal (2+) bilatera lly Chest: normal shape and exp ansion Consultation Request Notes Referral Date Referring Provider Referred Provider Not es 11/24/2024 Octavia Sheikh Cardiology, .
--- OUTSIDE RECORDS SUMMARY | 2024-12-08 04:45 | XMS_ITS ---
Author Organization [facility] Address [address] [facility] [address] [place] [id number] Care Team Providers Care Franchise Sales Manager Name Role Phone Jude Cao Primary Care Provider [phone] Kori Octavia Unavailable [phone] Allergies Allergen (clinical drug ingredient) Drug/Non Drug Allergy documented on EMR Reaction Allergy Type Onset Date Status amoxicillin / clavulanate Augmentin shaking Drug Allergy Active Levaquin achilles tendon swells up Drug Allergy Active Results Component Value Reference Range Notes Influenza Screen (in house) Reviewed date:12/08/2024 01:30:16 PM Interpretation: Performing Lab: Notes/Report: results Neg CBC Fingerstick (in house) Reviewed date:12/08/2024 01:30:01 PM Interpretation: Performing Lab: Notes/Report: wbc 6.6 3.5 - 10 lym 37.2 15 - 50 mid 8.4 2 - 15 gran 54.4 35 - 80 rbc 4.71 3.5 - 5.5 hgb 14.3 11.5 - 16.5 hct 42.7 35 - 55 mcv 90.6 75 - 100 mch 30.4 25 - 35 mchc 33.6 31 - 38 plat 140 100 - 400 Covid test (in house) Reviewed date:12/08/2024 01:30:09 PM Interpretation: Performing Lab: Notes/Report: Result: Neg REASON FOR VISIT 2 week F/U Medications Medication SIG (Take, Route, Frequency, Duration) Notes Start Date End Date Status hydrOXYzine HCl 25 MG 1 tablet Orally ev luis eduardo 6 hrs, prn Active Sertraline HCl 25 MG 1 tablet Orally Onc e a day Active Atorvastatin Calcium 10 MG take 1 tablet by mouth once daily Orally once daily; Duration: 90 days Active Clobetasol Propionate 0.05 % 1 josee applied topically 2 times a day prn Active Vitamin E 400 UNIT 1 cap(s) orally once a day Active Glucosamine Chondroitin MSM - as directed Orally Active Famotidine 20 MG 1 tab(s) orally once a day (at bedtime) Active Vitamin D 50 MCG (2000 UT) 1 capsule Ora lly Once a day; Duration: 30 day(s) Active MiraLax 17 GM/SCOOP as directed Orally Active Ginkgo Biloba 120 MG as directed Orally once a day Active Azelastine-Fluticasone 137-50 MCG/ACT 1 spray in each nostril Nasally Twice a day 05/05/2024 Active Bisoprolol Fumarate 5 MG take 1 tablet b y mouth once daily Orally once daily; Duration: 90 days Active Montelukast Sodium 10 MG take 1 tablet b y mouth once daily Orally once daily; Duration: 90 days Active Vital Signs Weight 145.6 lbs 12/08/2024 Blood pressure systolic 140 mm Hg 12/08/19 25 Blood pressure diastolic 88 mm Hg 025 Heart Rate 81 /min 12/08/2024 Height 65 in 12/08/2024 BMI 24.23 kg/m2 12/08/2024 Encounters Encounter Location Date Provider Diagnosis [facility] [facility] [address] [place] [id number] 12/08/2024 Octavia Sheikh Syncope, unspecified syncope type R55 ; Dizziness R42 ; Heart palpitations R00.2 ; Tinnitus, bilateral H93.13 ; Anxiety, generalized F41.1 and Acute URI J06.9 Assessments Encounter Date Diagnosis (ICD Code) Assessment Notes Treatment Notes Treatment Clinical Notes Section Notes 12/08/2024 Syncope, unspecified syncope type (ICD-10 - R55) Awaiting brain MRI and testing from cardiology. 12/08/2024 Dizziness (ICD-10 - R42) Patient is going to call and get in to see her ENT. 12/08/2024 Heart palpitations (ICD-10 - R00.2) Wearing a monitor. 12/08/2024 Tinnitus, bilateral (ICD-10 - H93.13) Patient is going to call Dr. Bowen's office and make an appt. 12/08/2024 Anxiety, generalized (ICD-10 - F41.1) Can start taking the sertraline at night and see if this helps the dizziness. Will call in 1 week. 12/08/2024 Acute URI (ICD-10 - J06.9) Has cough medication at home. Plan Of Treatment Medication Medication Name Sig Start Date Stop Date Notes hydrOXYzine HCl 25 MG 1 tablet Orally every 6 hrs, prn Sertraline HCl 25 MG 1 tablet Orally Once a day Treatment Notes Assessment Notes Syncope, unspecified syncope type Awaiti ng brain MRI and testing from cardiology. Dizziness Patient is going to call and get in to see her ENT. Heart palpitations Wearing a monitor. Tinnitus, bilateral Patient is going to call Dr. Bowen's office and make an appt. Anxiety, generalized Can start taking th e sertraline at night and see if this helps the dizziness. Will call in 1 week. Acute URI Has cough medication at home. Next Appt Details Follow Up: checkup with [facility], Reason: Progress Notes * AVELINA SOLOMONOB:1955 (69 yo F)Acc No.[id number]:12/08/2024 Progress Notes Patient: NORBERTO BONNER Provider: VINCE Alcocer :1955 A ge:68 Y S ex:Female Date:12/08/2024 Address:[address] [place] [address], [id number] Pcp:Jude Cao Subjective: * Chief Complaints: * 1 . 2 week F/U. * HPI: H PI: 68 year old female presents with c/o Here for follow up on:?Pt is here today for a f/u on dizziness, syncope, and anxiety. Pt sts she is still having dizzy spells. Pt sts it has gotten a little bit better, but not much. Pt sts she thinks the sertraline is helping with the anxiety but it makes her shaky and more lightheaded. She is taking it in the am and does not feel well until the afternoon. She has seen cardiology and had a stress test which was normal. Her echo and brain MRI are pending and she is wearing a 2 week event monitor..? * ROS: D ERMATOLOGY: no R bulmaro. n o H chanel. G ASTROENTEROLOGY: no N ausea. n o V omiting. n o D iarrhea.? U ROLOGY: no D ifficulty urinating. n o B lood in urine. 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 Rodriguez. * Surgical History: E [...] once daily Orally once daily , Taking Ginkgo Biloba 120 MG Tablet [...] cap(s) orally once a day , Taking Sertraline HCl 25 MG Tablet 1 tablet Orally Once a day , Taking hydrOXYzine HCl 25 MG Tablet 1 tablet Orally every 6 hrs, prn , Medication List reviewed and reconciled with the patient * Allergies: L evaquin: achilles tendon swells up , Augmentin: shaking. Objective: * Vitals: W t:145.6, Temp:98.4, BP:140/88, HR:81, Nurse:SALOME, Ht: 65, Repeat BP:130/80, BMI:24.23. * Examination: G eneral Examination: General Appearance: N AD. H EENT: u nremarkable.?Oral cavity: n o lesions, mucosa moist and WNL, no erythema. N dorothy: s upple, no lymphadenopathy. C hest: n ormal shape and expansion. H eart: R SR. L ungs: c lear to auscultation. A bdomen: bowel sounds present, soft and nontender. N eurologic Exam: I ntact, gait normal, tremor of hands. S kin: n ormal, no rash. P eripheral pulses: n ormal (2+) bilaterally. E xtremities: n o leg edema. P sychology: Grooming : a dequate. E ye contact : n ormal. M ood : anxious. Assessment: * Assessment: 1. S yncope, unspecified syncope type - R55 (Primary) 2 . D izziness - R42? 3. H eart palpitations - R00.2 4 . T innitus, bilateral - H93.13 5 . A nxiety, generalized - F41.1 6 . A cute URI - J06.9 Plan: * Treatment: 2. D izziness Notes: Patient is going to call and get in to see her ENT. 3. H eart palpitations Notes: Wearing a monitor. 4. T innitus, bilateral Notes: Patient is going to call Dr. Bowen's office and make an appt. 5. A nxiety, generalized Continue Sertraline HCl Tablet, 25 MG, 1 tablet, Orally, Once a day; C ontinue hydrOXYzine HCl Tablet, 25 MG, 1 tablet, Orally, every 6 hrs, prn. Notes: Can start taking the sertraline at night and see if this helps the dizziness. Will call in 1 week. 6. A cute URI L AB: Influenza Screen (in house) (Collection Date & Time - 12/08/2024) Value Reference Range r esults Neg * Candy Olmos 12/08/2024 10:35:5 7 AM > , Provider reviewed results while patient in office.Octavia Sheikh 12/08/2024 1:30:14 PM > ?LAB: CBC Fingerstick (in house) (Collection Date & Time - 12/08/2024)* Value Reference Range w bc 6.6 3.5 - 10 * l ym 37.2 15 - 50 * m id 8.4 2 - 15 * g ran 54.4 35 - 80 * r bc 4.71 3.5 - 5.5 * h gb 14.3 11.5 - 16.5 * h ct 42.7 35 - 55 * m cv 90.6 75 - 100 * m ch 30.4 25 - 35 * m chc 33.6 31 - 38 * p lat 140 100 - 400 * Jackelyn Salvador 12/08/2024 10:26 :23 AM > , Provider reviewed results while patient in office.Octavia Sheikh 12/08/2024 1:29:55 PM > ?LAB: Covid test (in house) (Collection Date & Time - 12/08/2024)* Value Reference Range R esult: Neg * Candy Olmos 12/08/2024 10:36:1 3 AM > , Provider reviewed results while patient in office.Octavia Sheikh 12/08/2024 1:30:06 PM > Notes: Has cough medication at home.?? * Procedure Codes: G 2211 Complex e/[place], [address] CAPILLARY BLOOD DRAW, 27952 CBC WITH AUTO DIFF, 68156 COVID TEST IN HOUSE, Modifiers: QW * Follow Up: [place] with [facility] * Images: Billing Information: * Visit Code: 35875 Office Visit, Est Pt., Level 4. * Procedure Codes: G2211 Complex e/[place]. [address] CAPILLARY BLOOD DRAW. 19784 CBC WITH AUTO DIFF. 06167 COVID TEST IN HOUSE. Modifiers: QW * Electronic signature of VINCE Barahona on 11/21/2025 at 06:33 AM EST Sign off status: Pending * Provider: VINCE Alcocer Date: 0 12/08/2024 Generated for Shanda romo/Lazaro/eTransmitting on: 1 06:33 AM EST History and Physical Notes * HPI (History of Present Illness) Category Sub-Category Detail Notes Category Not es HPI Here for follow up on: Pt is her e today for a f/u on dizziness, syncope, and anxiety. Pt sts she is still having dizzy spells. Pt sts it has gotten a little bit better, but not much. Pt sts she thinks the sertraline is helping with the anxiety but it makes her shaky and more lightheaded. She is taking it in the am and does not feel well until the afternoon. She has seen cardiology and had a stress test which was normal. Her echo and brain MRI are pending and she is wearing a 2 week event monitor. Examination Category Sub-Category Detail Notes Category Not es General Examination HEENT: unremarkable Heart: RSR Lungs: clear to auscultatio n Abdomen: bowel sounds present , soft and nontender Extremities: no leg edema General Appearance: NAD Skin: normal, no rash Neurologic Exam: Intact, gait normal, tremor of hands Neck: supple, no lymphaden opathy Oral cavity: no lesions, mucosa m oist and WNL, no erythema Peripheral pulses: normal (2+) bilatera lly Chest: normal shape and exp ansion Psychology Grooming : adequate Eye contact : normal Mood : anxious
--- OUTSIDE RECORDS SUMMARY | 2025-02-08 05:45 | XMS_ITS ---
Author Organization [facility] [address] [place] [phone] Care Team Providers Care Brand Sales Consultant Name Role Phone Jude Cao Primary Care Provider [phone] Octavia Sheikh Unavailable [phone] Allergies Allergen (clinical drug ingredient) Drug/Non Drug Allergy documented on EMR Reaction Allergy Type Onset Date Status amoxicillin / clavulanate Augmentin shaking Drug Allergy Active Levaquin achilles tendon swells up Drug Allergy Active Results Component Value Reference Range Notes X ray : Foot, right Reviewed date:02/10/2025 08:56:55 AM Interpretation: Performing Lab: Notes/Report: REASON FOR VISIT Possible Broken Toe Medications Medication SIG (Take, Route, Frequency, Duration) Notes Start Date End Date Status Famotidine 20 MG 1 tab(s) orally once a day (at bedtime) Active Clobetasol Propionate 0.05 % 1 josee applied topically 2 times a day prn Active Vitamin E 400 UNIT 1 cap(s) orally once a day Active Sertraline HCl 50 MG 1 tablet Orally Onc e a day; Duration: 30 day(s) 02/08/2025 Active Bisoprolol Fumarate 5 MG take 1 tablet b y mouth once daily Orally once daily; Duration: 90 days Active Vitamin D 50 MCG (1999 UT) 1 capsule Ora lly Once a day; Duration: 30 day(s) Active MiraLax 17 GM/SCOOP as directed Orally Active Glucosamine Chondroitin MSM - as directed Orally Active Montelukast Sodium 10 MG take 1 tablet b y mouth once daily Orally once daily; Duration: 90 days Active Azelastine-Fluticasone 137-50 MCG/ACT 1 spray in each nostril Nasally Twice a day 05/05/2024 Active Atorvastatin Calcium 10 MG take 1 tablet by mouth once daily Orally once daily; Duration: 90 days Active hydrOXYzine HCl 25 MG 1 tablet Orally ev luis eduardo 6 hrs, prn Active Vital Signs Weight 148.0 lbs 02/08/2025 Blood pressure systolic 160 mm Hg 02/09/20 25 Blood pressure diastolic 90 mm Hg 025 Heart Rate 68 /min 02/08/2025 Height 65 in 02/08/2025 BMI 24.63 kg/m2 02/08/2025 Encounters Encounter Location Date Provider Diagnosis [facility] [address] [place], [place] [id number] 02/08/2025 Octavia Sheikh Injury of toe on rig ht foot, initial encounter S99.921A and Anxiety, generalized F41.1 Assessments Encounter Date Diagnosis (ICD Code) Assessment Notes Treatment Notes Treatment Clinical Notes Section Notes 02/08/2025 Injury of toe on right foot, initial encounter (ICD-10 - S99.921A) 02/08/2025 Anxiety, generalized (ICD-10 - F41.1) She is doing well on her sertraline and would like to increase the dose. Plan Of Treatment Medication Medication Name Sig Start Date Stop Date Notes Sertraline HCl 25 MG 1.5 tab Orally Once a day Sertraline HCl 50 MG 1 tablet Orally Onc e a day; Duration: 30 day(s) 02/08/2025 Treatment Notes Assessment Notes Anxiety, generalized She is doing well o n her sertraline and would like to increase the dose. Next Appt Details Follow Up: via phone to repo rt test results, Reason: Progress Notes * AVELINA SOLOMONOB:1955 (69 yo F)Acc No.[id number]:02/08/2025 Progress Notes Patient: NORBERTO BONNER Provider: VINCE Alcocer :1955 A ge:69 Y S ex:Female Date:02/08/2025 Address:[address] [place] [address], [id number] Pcp:Jude Cao Subjective: * Chief Complaints: * 1 . Possible Broken Toe. * HPI: A nkle/Foot: The pt is here today with c/o pain and swelling in the right great toe. Pt States Thursday at the grocery she dropped a can of Madarin organges on the right big toe and then at home afternoon she was picking up a small artificial tree and the base came off and fell on the same toe in the same spot. 69 year old female presents with c/o Pain. c/o Swelling.? P sychology: She is doing well on the increased dose of sertraline and would like to further increase it. * ROS: D ERMATOLOGY: no R bulmaro. n o H chanel. G ASTROENTEROLOGY: no N ausea. n o V omiting. n o D iarrhea.? U ROLOGY: no D ifficulty urinating. n o B lood in urine. 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 * Surgical History: E [...] daily Orally once daily , Taking Vitamin D 50 MCG (2000 [...] cap(s) orally once a day , Taking hydrOXYzine HCl 25 MG Tablet 1 tablet Orally every 6 hrs, prn , Taking Sertraline HCl 25 MG Tablet 1.5 tab Orally Once a day , Discontinued Ginkgo Biloba 120 MG Tablet as directed Orally once a day , Medication List reviewed and reconciled with the patient * Allergies: L evaquin: achilles tendon swells up , Augmentin: shaking. Objective: * Vitals: W t:148.0, Temp:98.4, BP:160/90, HR:68, Nurse:MADELINE, Ht: 65, BMI:24.63. * Examination: G eneral Examination: General Appearance: N AD. C hest: n ormal shape and expansion. H eart: R SR. L ungs: c lear to auscultation. E xtremities: right great toe with erythema and ecchymosis, tender along the entire toe, there is also some tenderness along the 2nd digit with ecchymosis. P sychology: General Appearance: N AD. G rooming : a dequate.?Eye contact : n ormal. M ood : p leasant. H eart: R SR. L ungs: c lear to auscultation. N eurologic Exam: I ntact, gait normal. Assessment: * Assessment: 1. I njury of toe on right foot, initial encounter - K99.887L (Primary) 2 .?Anxiety, generalized - F41.1 Plan: * Treatment: 2.?Anxiety, generalized? Stop Sertraline HCl Tablet, 25 MG, 1.5 tab, Orally, Once a day;?Start Sertraline HCl Tablet, 50 MG, 1 tablet, Orally, Once a day, 30 day(s), 30 Tablet, Refills 0.?? Notes: She is doing well on her sertraline and would like to increase the dose.?? * Procedure Codes: G 2211 Complex e/m visit add on, 3077F SYST BP = 140 MM HG6 IT, 3080F DIAST BP = 90 MM HG * Follow Up: v ia phone to report test results * Images: Billing Information: * Visit Code: 01529 Office Visit, Est Pt., Level 4. * Procedure Codes: G2211 Complex e/m visit add on. 3077F SYST BP = 140 MM HG6 IT. 3080F DIAST BP = 90 MM HG. * Electronic signature of VINCE Barahona on 11/21/2025 at 06:33 AM EST Sign off status: Pending * Provider: VINCE Alcocer Date: 0 02/08/2025 Generated for Shanda romo/Lazaro/Papoitting on: 1 06:33 AM EST History and Physical Notes * HPI (History of Present Illness) Category Sub-Category Detail Notes Category Not es Ankle/Foot Pain Swelling Examination Category Sub-Category Detail Notes Category Not es General Examination Heart: RSR Lungs: clear to auscultatio n Extremities: right great toe with erythema and ecchymosis, tender along the entire toe, there is also some tenderness along the 2nd digit with ecchymosis General Appearance: NAD Chest: normal shape and exp ansion Psychology Heart: RSR Lungs: clear to auscultatio n General Appearance: NAD Neurologic Exam: Intact, gait normal Grooming : adequate Eye contact : normal Mood : pleasant
--- OUTSIDE RECORDS SUMMARY | 2025-06-29 05:00 | XMS_ITS ---
Author Organization [facility] Address [address] [facility] [address] [place] [phone] Care Team Providers Care Provider Scribe Name Role Phone Jude Cao Primary Care Provider Kori Octavia Hilliard [phone] Allergies Allergen (clinical drug ingredient) Drug/Non Drug Allergy documented on EMR Reaction Allergy Type Onset Date Status amoxicillin / clavulanate Augmentin shaking Drug Allergy Active Levaquin achilles tendon swells up Drug Allergy Active Results Component Value Reference Range Notes H-TSH Reviewed date:08/01/2025 01:59:45 PM Interpretation: Performing Lab: Notes/Report: H-VITAMIN D Reviewed date:08/01/2025 02:00:38 PM Interpretation: Performing Lab: Notes/Report: H-CMP Reviewed date:08/01/2025 01:59:01 PM Interpretation: Performing Lab: Notes/Report: H-T4 free Reviewed date:08/01/2025 01:59:29 PM Interpretation: Performing Lab: Notes/Report: H-Ferritin Reviewed date:08/01/2025 02:00:05 PM Interpretation: Performing Lab: Notes/Report: H-Iron Reviewed date:08/01/2025 02:00:23 PM Interpretation: Performing Lab: Notes/Report: REASON FOR VISIT Annual Wellness visit-Medicare Medications Medication SIG (Take, Route, Frequency, Duration) Notes Start Date End Date Status Clobetasol Propionate 0.05 % 1 josee applied topically 2 times a day prn Active Vitamin E 400 UNIT 1 cap(s) orally once a day Active hydrOXYzine HCl 25 MG 1 tablet Orally ev luis eduardo 6 hrs, prn Active Sertraline HCl 50 MG 1 tablet Orally Onc e a day; Duration: 90 days 02/08/2025 Active Famotidine 20 MG 1 tab(s) orally once a day (at bedtime) Active Atorvastatin Calcium 10 MG take 1 tablet by mouth once daily Orally once daily; Duration: 90 days Active Vitamin D 50 MCG (1999 UT) 1 capsule Ora lly Once a day; Duration: 30 day(s) Active MiraLax 17 GM/SCOOP as directed Orally Active Glucosamine Chondroitin MSM - as directed Orally Active Bisoprolol Fumarate 5 MG 1 tablet Orally Once a day; Duration: 90 days Active Mupirocin 2 % 1 application Community Mental Health Social Worker ally once a day 06/29/2025 Active Montelukast Sodium 10 MG take 1 tablet b y mouth once daily Orally once daily; Duration: 90 days Active Immunizations Vaccine Route Administration Date Status Comme nts Prevnar (PCV20) IM Intramuscular 06/29/2025 Administered Vital Signs Weight 153.6 lbs 06/29/2025 Blood pressure systolic 142 mm Hg 06/29/20 25 Blood pressure diastolic 80 mm Hg 025 Heart Rate 68 /min 06/29/2025 Height 65 in 06/29/2025 BMI 25.56 kg/m2 06/29/2025 Encounters Encounter Location Date Provider Diagnosis [facility] [address] [facility] [address] [place] [id number] 06/29/2025 Octavia Sheikh Adult general medica l examination Z00.00 ; Hypertension, unspecified type I10 ; Anxiety, generalized F41.1 ; Iron deficiency E61.1 ; Dyslipidemia E78.5 ; Allergic rhinitis, unspecified seasonality, unspecified trigger J30.9 ; Heart palpitations R00.2 ; Tinnitus, bilateral H93.13 ; Nasal sore J34.89 ; Paroxysmal atrial fibrillation I48.0 ; 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 n 06/29/2025 Hypertension, unspecified type (ICD-10 - I10) n 06/29/2025 Anxiety, generalized (ICD-10 - F41.1) n 06/29/2025 Iron deficiency (ICD-10 - E61.1) n 06/29/2025 Dyslipidemia (ICD-10 - E78.5) n 06/29/2025 Allergic rhinitis, unspecified seasonality, unspecified trigger (ICD-10 - J30.9) n 06/29/2025 Heart palpitations (ICD-10 - R00.2) n 06/29/2025 Tinnitus, bilateral (ICD-10 - H93.13) n 06/29/2025 Nasal sore (ICD-10 - J34.89) n 06/29/2025 Paroxysmal atrial fibrillation (ICD-10 - I48.0) n 06/29/2025 Benign neoplasm of pituitary gland (ICD-10 - D35.2) n 06/29/2025 BMI 25.0-25.9,adult (ICD-10 - Z68.25) n 06/29/2025 Abnormal thyroid blood test (ICD-10 - R79.89) n 06/29/2025 Elevated liver enzymes (ICD-10 - R74.8) n 06/29/2025 Vitamin D deficiency (ICD-10 - E55.9) n Plan Of Treatment Medication Medication Name Sig Start Date Stop Date Notes Atorvastatin Calcium 10 MG take 1 tablet by mouth once daily Orally once daily; Duration: 90 days Bisoprolol Fumarate 5 MG 1 tablet Orally Once a day; Duration: 90 days Mupirocin 2 % 1 application Community Mental Health Social Worker ally once a day 06/29/2025 Montelukast Sodium 10 MG take 1 tablet b y mouth once daily Orally once daily; Duration: 90 days Treatment Notes Assessment Notes Adult general medical examination Patien t instructed to return to office Annually for Annual Wellness Visits to include annual screenings of Pain assessment, Functional Ability assessment, Cognitive Ability assessment, Fall Risk assessment, Depression screening and Bladder control screening. Next Appt Details Follow Up: As directed by MD , Reason: Progress Notes * AVELINA SOLOMONOB:1955 (69 yo F)Acc No.[id number]:06/29/2025 Annual Wellness Visit Patient: NORBERTO BONNER Provider: VINCE Alcocer :1955 A ge:69 Y S ex:Female Date:06/29/2025 Address:[facility] [id number] Pcp:Jude Cao Subjective: * Chief Complaints: * 1 . Annual Wellness visit-Medicare. * HPI: H PI: Patient is here today for a Medicare Annual Wellness Visit. Pt is not fasting . E NT/respiratory: Pt states the coughing and sore throat started months ago and it's mostly at night. Pt states she thinks it's just her allergies. c/o sore throat. c/o cough s mall amount of white sputum. * ROS: D ERMATOLOGY: no R bulmaro. n o H chanel. G ASTROENTEROLOGY: no N ausea. n o V omiting. n o D iarrhea.? O PTHALMOLOGY: Negative for d enies issues with vision. U ROLOGY: no D ifficulty urinating. n o B lood in urine. * Medical History: H yperlipidemia, Arthritis, osteoporosis/ostepenia Dr Natalio Roberts, [place]'s disease Dr Roman, kidney stones-Dr Agudelo, Vertigo, Colon polyps, Hypertension, MEDICAL CLAIMS SPECIALIST - Dr. Rodriguez. * Surgical History: [...] 6 hrs, prn , Taking Sertraline HCl 50 MG Tablet 1 tablet Orally Once a day , Taking Bisoprolol Fumarate 5 MG Tablet 1 tablet Orally Once a day , Discontinued Azelastine-Fluticasone 137-50 MCG/ACT Suspension 1 spray in each nostril Nasally Twice a day , Discontinued Ondansetron [address] 1 TABLET ON THE TONGUE AND ALLOW TO DISSOLVE ORALLY THREE TIMES A DAY NEEDED , Medication List reviewed and reconciled with the patient * Allergies: L evaquin: achilles tendon swells up, Augmentin: shaking. Objective: * Vitals: W t: 153.6, Temp: 98.1, BP: 142/80, HR: 68, Nurse: pe, Ht: 65, BMI:25.56. * Examination: G eneral Examination: General Appearance: N AD. H EENT: u nremarkable.?Oral cavity: n o lesions, mucosa moist and WNL, no erythema. N dorothy: s upple, no lymphadenopathy. C hest: n ormal shape and expansion. H eart: R SR. L ungs: c lear to auscultation. A bdomen: b owel sounds present, soft and nontender. N eurologic Exam: I ntact, gait normal. S kin: n ormal, no rash. P eripheral pulses: n ormal (2+) bilaterally. E xtremities: n o leg edema. * Physical Examination: G ENERAL: Pain Assessment: P ain level:3 , on a scale of 0 to 10 (10 being extreme pain). F unctional Status Assessment: P atient response to how often physical health interferes with daily activities:occasionally Able to perform ADLs-including meal preparation, grocery shopping, housework, laundry, taking medications, or handling finances. Cognitive Status: Alert and oriented. Ambulation Status: Fully ambulatory. F all Risk Assessment: I ndependant in ambulation, adequate lighting in home. Patient has NOT fallen or had trouble walking within the past 12 months. D epression Screening: D enies depressed mood or anxiety. Describes emotional health as: positive/upbeat. B ladder Control Screening: D enies problems. Assessment: * Assessment: 1. A dult general medical examination - Z00.00 (Primary) 2 . H ypertension, unspecified type - I10 3 . A nxiety, generalized - F41.1 4 .?Iron deficiency - E61.1 5 . D yslipidemia - E78.5 6 . A llergic rhinitis, unspecified seasonality, unspecified trigger - J30.9 7 . H eart palpitations - R00.2 8 . T innitus, bilateral - H93.13 9 . N linsey sore - J34.89 1 0. P aroxysmal atrial fibrillation - I48.0 11. B enign neoplasm of pituitary gland - D35.2 1 2. B ME 25.0-25.9,adult - Z68.25 1 3. A bnormal thyroid blood test - R79.89 1 4. E levated liver enzymes - R74.8 1 5. V itamin D deficiency - E55.9 ? n Plan: * Treatment: 2. H ypertension, unspecified type Refill Bisoprolol Fumarate Tablet, 5 MG, 1 tablet, Orally, Once a day, 90 days, 90 Tablet, Refills 3. 3. I fidel deficiency L AB: H-Ferritin (Collection Date & Time - 08/01/2025) L AB: H-Iron (Collection Date & Time - 08/01/2025) 4.?Dyslipidemia? Refill Atorvastatin Calcium Tablet, 10 MG, take 1 tablet by mouth once daily, Orally, once daily, 90 days, 90, Refills 3.??5.?Allergic rhinitis, unspecified seasonality, unspecified trigger? Refill Montelukast Sodium Tablet, 10 MG, take 1 tablet by mouth once daily, Orally, once daily, 90 days, 90, Refills 3.??6.?Nasal sore? Start Mupirocin Ointment, 2 %, 1 application, Externally, once a day, 1, Refills 2.??7.?Abnormal thyroid blood test?LAB: H-TSH (Collection Date & Time - 08/01/2025) ?LAB: H-T4 free (Collection Date & Time - 08/01/2025)* see duplicate order 8.?Elevated liver enzymes?LAB: H-CMP (Collection Date & Time - 08/01/2025)* see duplicate order 9.?Vitamin D deficiency?LAB: H-VITAMIN D (Collection Date & Time - 08/01/2025)* see duplicate order * Immunizations: Prevnar (PCV20) : 0.5 mL (Route: Intramuscular) given by CAROLYN Desai , Supervisor Drying And Softening on Left Deltoid (Adult general medical examination) * Procedure Codes: G 0438 ANNUAL WELLNES VST; PERSNL PPS INIT, G2211 Complex e/m visit add on, 1090F PRES/ABSN URINE INCON ASSESS, 3288F FALL RISK ASSESSMENT DOCD, 1170F FXNL STATUS ASSESSED, 1159F MED LIST DOCD IN RCRD, 1003F LEVEL OF ACTIVITY ASSESS, 1036F TOBACCO NON-USER, 3017F COLORECTAL CA SCREEN DOC REV, G8420 BMI<30 AND >=22 CALC & DOCU, G8950 PREHTN/HTN BP DOC INDCD F/U DOC, G8753 MOST RECENT SYSTOLIC BP >= 140MM HG, G8754 MOST RECENT DIASTOLIC BP < 90MM HG, G9899 Scrn miky perf rslts doc, 1125F AMNT PAIN NOTED PAIN PRSNT, G8510 NEG SCR Depression PT NOT ELIG F/U/PLN DOC, 4040F PNEUMOC IMM ORDER/ADMIN, G8399 PT W/DXA DOCUMENT OR ORDER * Preventive Medicine: Counseling: E motional health: E ncouraged to try connecting with family or friends to boost mood. B ladder control: D iscussed ways to control/manage leakage of urine. Exercise: A dvised to start, increase or maintain level of exercise/physical activity. I njury prevention: D iscussed fall prevention. Discussed need for cane/walker. Potential trip hazards discussed. Immunizations: P neumococcal r ecommended. I nfluenza r ecommended seasonally. Screening / Special Tests: M ammogram R ecent history: Aug 2024. C olonoscopy R ecent history: 04/11/2022, Dr. Anderson, negative, repeat 5 years. B one mineral Density?Recent history: UTD. * Follow Up: A s directed by * Images: Billing Information: * Visit Code: 87056 Office Visit, Est Pt., Level 3. Modifiers: 25 * Procedure Codes: G0438 ANNUAL WELLNES VST; PERSNL PPS INIT. G2211 Complex e/m visit add on. 1090F PRES/ABSN URINE INCON ASSESS. 3288F FALL RISK ASSESSMENT DOCD. 1170F FXNL STATUS ASSESSED. 1159F MED LIST DOCD IN RCRD. 1003F LEVEL OF ACTIVITY ASSESS. 1036F TOBACCO NON-USER. 3017F COLORECTAL CA SCREEN DOC REV. G8420 BMI<30 AND >=22 CALC & DOCU. G8950 PREHTN/HTN BP DOC INDCD F/U DOC. G8753 MOST RECENT SYSTOLIC BP >= 140MM HG. G8754 MOST RECENT DIASTOLIC BP < 90MM HG. G9899 Scrn miky perf rslts doc. 1125F AMNT PAIN NOTED PAIN PRSNT. G8510 NEG SCR Depression PT NOT ELIG F/U/PLN DOC. 4040F PNEUMOC IMM ORDER/ADMIN. G8399 PT W/DXA DOCUMENT OR ORDER. * Electronic signature of VINCE Barahona on 11/21/2025 at 06:33 AM EST Sign off status: Pending * Provider: VINCE Alcocer Date: 0 06/29/2025 Generated for Shanda romo/Lazrao/eTransmitting on: 1 06:33 AM EST History and Physical Notes * HPI (History of Present Illness) Category Sub-Category Detail Notes Category Not es ENT/respiratory sore throat cough small amount of whit e sputum HPI Patient is here today for a [facility] Annual Wellness Visit. Pt is not fasting Physical Examination Category Sub-Category Detail Notes Section Note s GENERAL Pain Assessment: Pain level:3 , on a scale of 0 to 10 (10 being extreme pain) Functional Status Assessment: Patient re sponse to how often physical health interferes with daily activities:occasionallyAble to perform ADLs-including meal preparation, grocery shopping, housework, laundry, taking medications, or handling finances.Cognitive Status: Alert and oriented.Ambulation Status: Fully ambulatory Fall Risk Assessment: Independant in amb ulation, adequate lighting in home. Patient has NOT fallen or had trouble walking within the past 12 months Depression Screening: Denies depressed m ood or anxiety. Describes emotional health as: positive/upbeat Bladder Control Screening: Denies proble ms Examination Category Sub-Category Detail Notes Category Not [...]
--- OUTSIDE RECORDS SUMMARY | 2025-09-15 08:45 | XMS_ITS ---
[facility] Organization [facility] Address [address] [place] [phone] Care Team Providers Care Fire Marshal Refinery Name Role Phone Jude Cao Primary Care Provider Octavia Sheikh Unavailable [phone] Allergies Allergen (clinical drug ingredient) Drug/Non Drug Allergy documented on EMR Reaction Allergy Type Onset Date Status amoxicillin / clavulanate Augmentin shaking Drug Allergy Active Levaquin achilles tendon swells up Drug Allergy Active Results Component Value Reference Range Notes Influenza Screen (in house) Reviewed date:09/15/2025 03:56:02 PM Interpretation: Performing Lab: Notes/Report: results neg Rapid Strep- Inhouse Reviewed date:09/15/2025 03:56:02 PM Interpretation: Performing Lab: Notes/Report: strep test neg CBC Fingerstick (in house) Reviewed date:09/15/2025 03:56:02 PM Interpretation: Performing Lab: Notes/Report: wbc 7.5 3.5 - 10 lym 34.1 15 - 50 mid 6.5 2 - 15 gran 59.4 35 - 80 rbc 4.74 3.5 - 5.5 hgb 14.2 11.5 - 16.5 hct 43.0 35 - 55 mcv 90.8 75 - 100 mch 29.9 25 - 35 mchc 32.9 31 - 38 plat 125 100 - 400 Covid test (in house) Reviewed date:09/15/2025 03:56:02 PM Interpretation: Performing Lab: Notes/Report: Result: neg Reason For Referral Diagnosis 1 Choking episode (R09 .89) [facility] Referring Provider First Name Octavia Referring Provider Last Name Kori Referring Provider Speciality Physician Hardening 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 Referred Provider Specialty Gastroentero logy General Notes Octavia Sheikh 03:09:50 PM >Pt needs an appt with Em Bautista Brynn 09/18/2025 11:24:51 AM > faxed to [facility] Referral Priority Routine REASON FOR VISIT sore throat and cough Medications Medication SIG (Take, Route, Frequency, Duration) Notes Start Date End Date Status hydrOXYzine HCl 25 MG 1 tablet Orally ev luis eduardo 6 hrs, prn Active Vitamin E 400 UNIT 1 cap(s) orally once a day Active Bisoprolol Fumarate 5 MG 1 tablet Orally Once a day; Duration: 90 days Active Montelukast Sodium 10 MG take 1 tablet b y mouth once daily Orally once daily; Duration: 90 days Active Clobetasol Propionate 0.05 % 1 josee applied topically 2 times a day prn Active Vitamin D 50 MCG (1999 UT) 1 capsule Ora lly Once a day; Duration: 30 day(s) Active Sertraline HCl 50 MG 1 tablet Orally Onc e a day; Duration: 90 days Active Glucosamine Chondroitin MSM - as directed Orally Active MiraLax 17 GM/SCOOP as directed Orally Active Famotidine 20 MG 1 tab(s) orally once a day (at bedtime) Active Atorvastatin Calcium 10 MG take 1 tablet by mouth once daily Orally once daily; Duration: 90 days Active Mupirocin 2 % 1 application Brown Stock Washer ally once a day 06/29/2025 Active Airsupra 90-80 MCG/ACT 2 puffs as needed Inhalation 4 times a day, prn 09/15/2025 Active Benzonatate 200 MG 1 capsule Orally Thr ee times a day, prn 09/15/2025 Active Vital Signs Weight 146.4 lbs 09/15/2025 Blood pressure systolic 130 mm Hg 09/15/20 25 Blood pressure diastolic 82 mm Hg 025 Heart Rate 72 /min 09/15/2025 Height 65 in 09/15/2025 BMI 24.36 kg/m2 09/15/2025 Encounters Encounter Location Date Provider Diagnosis [facility] [address] [facility] [address] [place], [place] [id number] 09/15/2025 Octavia Sheikh Acute URI J06.9 and Choking episode R09.89 Assessments Encounter Date Diagnosis (ICD Code) Assessment Notes Treatment Notes Treatment Clinical Notes Section Notes 09/15/2025 Acute URI (ICD-10 - J06.9) 09/15/2025 Choking episode (ICD-10 - R09.89) Plan Of Treatment Medication Medication Name Sig Start Date Stop Date Notes Airsupra 90-80 MCG/ACT 2 puffs as needed Inhalation 4 times a day, prn 09/15/2025 Benzonatate 200 MG 1 capsule Orally Thr ee times a day, prn 09/15/2025 Referrals Referral Date Details 09/15/2025 09/15/2025 Next Appt Details Follow Up: with GI, Reason: Progress Notes * AVELINA SOLOMONOB:1955 (69 yo F)Acc No.[id number]:09/15/2025 Progress Notes Patient: NORBERTO BONNER Provider: VINCE Alcocer :1955 A ge:69 Y S ex:Female Date:09/15/2025 Address:[address] [place], [place] [phone] Pcp:Jude Cao Subjective: * Chief Complaints: * 1 . Sore throat and cough. * HPI: E NT/respiratory: 69 year old female presents with c/o sore throat P t sts her throat started a couple of days ago. c/o cough P t sts her symptoms started 2-3 weeks ago. c/o nasal congestion. c/o headache. Denies : Fever. D enies : ear pain. G astroenterology: c/o Dysphagia H as had choking episodes. c/o Acid Reflux. * ROS: D ERMATOLOGY: no R bulmaro. n o H chanel. G ASTROENTEROLOGY: no H eartburn. n o V omiting. n o D iarrhea. U ROLOGY: no D ifficulty urinating. n o B lood in urine. 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 * Surgical History: E [...] yes. Alcohol: No. * Medications: T aking Vitamin D 50 MCG (2000 UT) Capsule [...] Orally every 6 hrs, prn , Taking Montelukast Sodium 10 MG Tablet take 1 tablet by mouth once daily Orally once daily , Taking Bisoprolol Fumarate 5 MG Tablet 1 tablet Orally Once a day , Taking Atorvastatin Calcium 10 MG Tablet take 1 tablet by mouth once daily Orally once daily , Taking Mupirocin 2 % Ointment 1 application Externally once a day , Taking Sertraline HCl 50 MG Tablet 1 tablet Orally Once a day , Medication List reviewed and reconciled with the patient * Allergies: L evaquin: achilles tendon swells up, Augmentin: shaking. Objective: * Vitals: W t: 146.4, Temp: 98.4, BP: 130/82, HR: 72, Nurse: , Ht: 65, BMI:24.36. * Examination: G eneral Examination: General Appearance: N AD. H EENT: s clera and conjunctiva clear, PERRLA, TM's normal, translucent, nose congested. O ral cavity: m inimal erythema. N dorothy: s upple, no lymphadenopathy. C hest: n ormal shape and expansion. H eart: R SR. L ungs: c lear to auscultation. A bdomen: b owel sounds present, soft and nontender. Assessment: * Assessment: 1. A cute URI - J06.9 (Primary) 2 . C hoking episode - R09.89 ? Plan: * Treatment: Value Reference Range w bc 7.5 3.5 - 10 * l ym 34.1 15 - 50 * m id 6.5 2 - 15 * g ran 59.4 35 - 80 * r bc 4.74 3.5 - 5.5 * h gb 14.2 11.5 - 16.5 * h ct 43.0 35 - 55 * m cv 90.8 75 - 100 * m ch 29.9 25 - 35 * m chc 32.9 31 - 38 * p lat 125 100 - 400 * Jackelyn Salvador 09/15/2025 02: 21:32 PM EDT > Provider reviewed results while patient in office. 2.?Choking episode? Referral To:Gastroenterology ?Reason: * Labs: * L ab: Covid test (in house) (Collection Date & Time - 09/15/2025) Value Reference Range R esult: neg * Luba Vasquez 09/15/2025 03:24:30 PM EDT > Provider reviewed results while patient in office. ?Lab: Influenza Screen (in house) (Collection Date & Time - 09/15/2025)* Value Reference Range r esults neg * Luba Vasquez 09/15/2025 03:24:49 PM EDT > Provider reviewed results while patient in office. ?Lab: Rapid Strep- Inhouse (Collection Date & Time - 09/15/2025)* Value Reference Range s trep test neg * Luba Vasquez 09/15/2025 03:25:14 PM EDT > Provider reviewed results while patient in office. * Procedure Codes: G 2211 Complex e/[place], [address] CAPILLARY BLOOD DRAW, 24622 CBC WITH AUTO DIFF, 32821 STREP A ASSAY W/OPTIC, Modifiers: QW , 01324 COVID TEST IN HOUSE, Modifiers: QW , 66102 Flu Test- Nasal Swab, Modifiers: QW , 1036F TOBACCO NON-USER, G8783 BP SCR PRFRM RCMDD DEFIND SCR INTVL, G8752 MOST RECENT SYSTOLIC BP < 140MM HG, G8754 MOST RECENT DIASTOLIC BP < 90MM HG, 3075F SYST BP GE 130 - 139MM HG, 3079F DIAST BP 80-89 MM HG * Follow Up: w ith GI * Images: Billing Information: * Visit Code: 25310 Office Visit, Est Pt., Level 3. * Procedure Codes: G2211 Complex e/[place]. [address] CAPILLARY BLOOD DRAW. 22207 CBC WITH AUTO DIFF. 78618 STREP A ASSAY W/OPTIC. Modifiers: QW 18543 COVID TEST IN HOUSE. Modifiers: QW 09472 Flu Test- Nasal Swab. Modifiers: QW 1036F TOBACCO NON-USER. G8783 BP SCR PRFRM RCMDD DEFIND SCR INTVL. G8752 MOST RECENT SYSTOLIC BP < 140MM HG. G8754 MOST RECENT DIASTOLIC BP < 90MM HG. 3075F SYST BP GE 130 - 139MM HG. 3079F DIAST BP 80-89 MM HG. * Electronic signature of VINCE Barahona on 11/21/2025 at 06:33 AM EST Sign off status: Pending * Provider: VINCE Alcocer Date: Generated for Shanda romo/Lazaro/Cosmo on: 06:33 AM EST History and Physical Notes * HPI (History of Present Illness) Category Sub-Category Detail Notes Category Not es ENT/respiratory sore throat Pt sts her throa t started a couple of days ago ear pain cough Pt sts her symptoms started 2-3 weeks ago Fever headache nasal congestion Gastroenterology Dysphagia Has had choking episodes Acid Reflux Examination Category Sub-Category Detail Notes Category Not es General Examination HEENT: sclera and c onjunctiva clear, PERRLA, TM's normal, translucent, nose congested Heart: RSR Lungs: clear to auscultatio n Abdomen: bowel sounds present , soft and nontender General Appearance: NAD Neck: supple, no lymphaden opathy Oral cavity: minimal erythema Chest: normal shape and exp ansion Consultation Request Notes Referral Date Referring Provider Referred Provider Not es 09/15/2025 Octavia Sheikh ,
--- NOTE | 2025-11-21 06:28 | HMH.EDGENADL ---
Discharge Plan Disposition Patient Disposition: Home, Self-Care Prescriptions Prescriptions: New methocarbamol 500 mg tablet 500 mg PO Q6H PRN (Reason: pain) Qty: 30 0RF lidocaine 5 % adhesive patch,medicated 1 patch topical DAILY PRN (Reason: pain) Qty: 30 0RF Rx Instructions: leave on most painful area for up to 12 hrs No Action montelukast [Singulair] 10 mg tablet 10 mg PO QHS atorvastatin [Lipitor] 10 mg tablet 10 mg PO QDAY glucosamine HCl 1,500 mg tablet 1,500 mg PO DAILY ergocalciferol (vitamin D2) 400 unit tablet 400 unit PO DAILY cholecalciferol (vitamin D3) 25,000 unit capsule 25,000 unit PO DAILY polyethylene glycol 3350 [Miralax] 17 gram/dose powder 17 g PO DAILY bisoprolol fumarate 5 mg tablet 10 mg PO DAILY ondansetron 4 mg tablet,disintegrating 4 mg PO NEEDED PRN (Reason: Nausea) sertraline 50 mg tablet 50 mg PO DAILY meclizine 12.5 mg tablet 12.5 mg PO PRN Patient Comments: [NO ORIGINAL SIG] zoledronic tmiy-mduuvvwa-vdwhu [Reclast] 5 mg/100 mL piggyback IV .yearly famotidine 20 mg tablet 20 mg PO DAILY hydroxyzine HCl 25 mg tablet 25 mg PO TID PRN (Reason: Dizziness) diazepam 5 mg tablet 5 mg PO DAILY PRN (Reason: vertigo) Qty: 20 0RF Referrals Follow up/Referrals: Octavia Sheikh PA [Primary Care Provider, Medical] - See instructions Activity Restrictions/Add. Instructions Additional Instructions/Restrictions: You likely have a couple of small rib fractures. We will call you if there is something else noted on your CT scan. Please use multimodal pain control as discussed including lidocaine patches, Tylenol ibuprofen muscle relaxers and the hydrocodone. Please use incentive spirometer frequently. Please follow-up with your primary care provider. Please return to the emergency department if you develop any new or worsening symptoms or become concerned for your health. Clinical Impressions Clinical Impression: Rib pain on left side, Fracture of left fifth rib Print Language Print Language: Prydeinig Discharge ED Provider: Garth Roblero Adult HPI General Chief complaint: PAIN Stated complaint: fell [place] sidewalk pain in l rib Time Seen by Provider: 11/21/25 06:28 History of Present Illness HPI narrative: 69-year-old female with history of osteoporosis presents for left rib margin pain. She reports that she fell on [place], landing onto her chest with her left arm on her lower rib margin. She reports it did not really hurt at first but it got more sore throughout the day and the next day. She reached up yesterday to get the decorations off of the tree and she had a sudden severe worsening of the pain. She is focally tender in that area. She took some meds at home to try to help but the pain is getting worse. Related Data Home Medications ?Medication ?Instructions ?Recorded ?Confirmed atorvastatin 10 mg tablet (Lipitor) 10 mg PO QDAY Cholesterol 12/02/17 10/25/25 montelukast 10 mg tablet 10 mg PO QHS Allergy symptoms 12/02/17 10/25/25 (Singulair) cholecalciferol (vitamin D3) 625 25,000 unit PO DAILY Supplement 09/27/19 10/25/25 mcg (25,000 unit) capsule ergocalciferol (vitamin D2) 10 mcg 400 unit PO DAILY Supplement 09/27/19 10/25/25 (400 unit) tablet glucosamine HCl 1,500 mg tablet 1,500 mg PO DAILY Supplement 09/27/19 10/25/25 polyethylene glycol 3350 17 17 g PO DAILY bowel 09/27/19 10/25/25 gram/dose oral powder (Miralax) bisoprolol fumarate 5 mg tablet 10 mg PO DAILY High blood pressure 11/03/23 10/25/25 famotidine 20 mg tablet 20 mg PO DAILY 11/03/23 10/25/25 hydroxyzine HCl 25 mg tablet 25 mg PO TID PRN Dizziness 11/29/24 10/25/25 ondansetron 4 mg disintegrating 4 mg PO NEEDED PRN Nausea 02/21/25 10/25/25 tablet sertraline 50 mg tablet 50 mg PO DAILY Depression 02/21/25 10/25/25 meclizine 12.5 mg tablet 12.5 mg PO PRN 10/25/25 10/25/25 zoledronic acid 5 mg/100 mL in ea IV .yearly 10/25/25 10/25/25 mannitol 5 %-water intravenous piggybck (Reclast) Previous Rx's ?Medication ?Instructions ?Recorded diazepam 5 mg tablet 5 mg PO DAILY PRN vertigo #20 tabs 01/16/25 lidocaine 5 % topical patch 1 patch topical DAILY PRN pain #30 11/21/25 ea methocarbamol 500 mg tablet 500 mg PO Q6H PRN pain #30 tabs 11/21/25 Allergies Allergy/AdvReac Type Severity Reaction Status Date / Time amoxicillin (From AUGMENTIN) Allergy Unknown Shakiness Verified 11/21/25 06:42 clavulanic acid (From Allergy Unknown Shakiness Verified 11/21/25 06:42 AUGMENTIN) levofloxacin (From LEVAQUIN) Allergy Unknown Joint Pain Verified 11/21/25 06:42 Sulfa (Sulfonamide Allergy itch Verified 11/21/25 06:42 Antibiotics) [facility] Disclaimer: The information contained in this section may have been updated after the patient was seen, as this information can be updated by other users. Medical History (Updated 11/21/25 @ 23:02 by Garth Roblero MD) Osteopenia Bilateral tinnitus Lesion of pituitary gland Hearing loss Paroxysmal A-fib Neuroma Basal cell carcinoma of nose Hypertension Vertigo Kidney stones Edil's disease Osteoporosis HLP (hyperkeratosis lenticularis perstans) Surgical History (Updated 10/25/25 @ 13:51 by Katherine Wheeler MA) History of hysterectomy History of foot surgery History of hip replacement Family History Other Alzheimer disease Dementia Social History (Updated 10/25/25 @ 13:51 by Katherine Wheeler MA) Smoking Status: Never smoker alcohol intake: current alcohol intake frequency: holidays/special occasions only substance use type: denies use current occupational status: retired Travel in the last 8 weeks?: None household members: spouse housing: house current occupational exposures/hazards: No caffeine: Yes Have you lived/traveled outside US in past 30 days?: No Contact w/someone who lives/traveled outside US past 30 days?: No Exposure to someone with infectious disease in past 14 days?: No Do you have a fever (greater than 100.4 F or 38 C)?: No Have you tested positive for COVID-19?: No Exposed to someone with COVID-19 in past 14 days?: No Do you have a sore throat?: No Do you have a cough?: No Do you have any weakness?: No Do you have any diarrhea?: No Are you experiencing any unusual bleeding?: No Do you have any muscle aches/pain?: No Do you have any abdominal pain?: No Are you experiencing loss of taste or smell?: No Other Medical History Have you received the Flu Vaccine for this season: Yes Have you received the Pneumonia Vaccine: Yes ROS Obtained: Yes All systems reviewed & no additional complaints except as documented Physical Exam General General appearance: alert and in no apparent distress Head Head exam: atraumatic and normocephalic Eye Eye exam: Present normal appearance, PERRL and EOMI ENT ENT exam: Present normal oropharynx and normal external ear exam Neck Neck exam: Present normal inspection and full ROM Chest Chest inspection: Present normal inspection, symmetric chest wall rise and tenderness (Left anterior rib margin tenderness to palpation) Respiratory Respiratory exam: Present normal lung sounds bilaterally; Absent respiratory distress Cardiovascular Cardiovascular exam: Present regular rate and normal rhythm Abdominal Exam Abdominal exam: Present soft; Absent distention, tenderness or guarding Extremities Exam Extremities exam: Present normal inspection; Absent edema or joint swelling Back Exam Back exam: Present normal inspection; Absent tenderness Neurological Exam Neurological exam: Present alert and oriented X3; Absent motor sensory deficit Psychiatric Psychiatric exam: Present normal affect and normal mood Skin Skin exam: Present warm, dry and normal color Lymphatic Lymphatic Findings: no adenopathy Medical Decision Making Medical Records Medical records reviewed: Yes I reviewed the patient's medical records. Screening: Per USPSTF and CDC recommendations, given the prevalence of disease in our region, it is our hospital?s policy to screen for HIV and viral Hepatitis for all patients aged 18 and over and those with ongoing risk factors. Sunday Inquiry Pt receiving controlled substance: No Sunday was queried for this patient: No Vital Signs: 11/21/25 06:40 11/21/25 07:17 Temperature 97.7 F 97.7 F Temperature Source Oral Oral Pulse Rate 60 Pulse Rate [Right] 77 Respiratory Rate 20 18 Blood Pressure 155/82 H Blood Pressure [Right Arm] 181/96 H Blood Pressure Mean [Right Arm] 124 Blood Pressure Position Sitting 02 Sat by Pulse Oximetry 99 Oxygen Delivery Method Room Air Room Air Lab Data Lab results reviewed: Yes I reviewed the patient's lab results. Orders (Tests/Meds): ED MEDICATIONS Discontinued Medications Generic Name Dose Route Start Last Admin Trade Name Haylee PRN Reason Stop Dose Admin Acetaminophen 1,000 mg 11/21/25 06:38 11/21/25 06:48 Acetaminophen 500mg Tab PO 11/21/25 06:39 1,000 mg ONCE ONE Administration Ibuprofen 600 mg 11/21/25 06:38 11/21/25 06:48 Ibuprofen 600 Mg Tablet PO 11/21/25 06:39 600 mg ONCE ONE Administration Lidocaine 1 each 11/21/25 06:38 11/21/25 06:48 Lidocaine 5% Transdermal Patch TD 11/21/25 06:39 1 each ONCE ONE Administration Methocarbamol 500 mg 11/21/25 06:38 11/21/25 06:48 Methocarbamol 500mg Tablet PO 11/21/25 06:39 500 mg ONCE ONE Administration Oxycodone HCl 5 mg 11/21/25 06:38 11/21/25 06:48 Oxycodone 5mg Immediate Release Tablet PO 11/21/25 06:39 5 mg ONCE ONE Administration ORDERS Category Date Time Status CT chest wo con Stat Cat Scan 11/21/25 06:38 Completed Medical Decision Narrative: 69-year-old female with history of osteoporosis presents for left anterior rib margin pain after a fall on [employer] [address], worsened after reaching up to clean her tree yesterday.. History was obtained via interactive discussion with patient, family, chart review. On arrival, patient is [afebrile, hemodynamically stable, satting appropriately, alert, oriented x4, GCS 15], moving all extremities spontaneously. Full physical exam performed and significant for focal tenderness in the left anterior rib margin Differential includes but is not limited to rib fracture, musculoskeletal strain, pneumothorax, hemothorax. Patient was given Oxy, Tylenol, Toradol, lidocaine patch, Robaxin for symptomatic management and correction of underlying abnormalities. Workup initiated including CT chest Noncon. I considered obtaining labs, EKG etc. but patient clearly has musculoskeletal pain based on history and exam. CT imaging was independently turbid by me and significant for 2 small rib fractures in the left anterior rib margin. Formal read pending. I had an interactive discussion with patient regarding her presentation, symptom control, return precautions etc. She was discharged with prescription for muscle relaxers and lidocaine patches. She has some hydrocodone remaining at home. She was given incentive spirometer and discharged in stable condition. We will call if there is some other abnormality noted on CT. Formal read shows a left fifth anterior fracture. Procedures Risk/Benefits of Procedure(s) Were Explained: Yes Critical Care Critical Care Time Critical Care Time: No
--- OUTSIDE RECORDS SUMMARY | 2025-11-21 06:33 | XMS_ITS | Encounter Summary ---
Author Organization Healthcare Address [address] [place] [address] Care Team Providers Care Metalsmith Name Role Phone Brandon Cao MD Primary Care Provider [phone] Encounter Details Date Type Department Care Team ([facility] st Contact Info) Description 12/07/2024 Orders Only External Location [address] [place] [address] Provider, External Social History Tobacco Use Types [...] as of this encounter Plan of Treatment Not on file documented as of this encounter Procedures Procedure [...] documented as of this encounter Care Teams Metalsmith Relationship Specialty Start Date End Date Brandon Cao MD [facility] [address] PCP - General 08/11/22 documented as of this encounter
--- OUTSIDE RECORDS SUMMARY | 2025-11-21 06:33 | XMS_ITS | Clinical Summary ---
Author Organization [facility] Address [address] [place] [address] Care Team Providers Care Corn Husk Baler Name Role Phone Sourav Cao MD Primary Care Provider Encounters Date Type Department Care Team Description 09/14/2025 Results Follow-Up [facility]K [facility]ESSMENT [address] [place] [id number] Vianney De La Cruz RN 09/13/2025 8:39 AM EDT - 09/13/2025 11:59 PM EDT Hospital Encounter [facility] [address] [place] [phone] Eloise Rodriguez MD Visit for screening mammogram Discharge Disposition: Home or Self Care 09/13/2025 Travel from Last 3 Months Family History Medical History Relation Name Comments Breast cancer Maternal Aunt 1 Breast cancer Maternal Aunt 2 GREAT DX AGE UNKN OWN Breast cancer Maternal Grandmother Ovarian cancer Neg Hx Relation Name Status Comments Maternal Aunt 1 Maternal Aunt 2 GREAT Maternal Grandmother Social History Tobacco Use Types Packs/Day Years Used Date Smoking Tobacco: Never Assessed Comments No Sex and Gender Information Value Date Recorded Sex Assigned at Not on file Legal Sex Female 12:07 PM EDT Gender Identity Not on file Sexual Orientation Not on file Plan of Treatment Health Maintenance Due Date Last Done Comments TDAP/TD VACCINES (1 - Tdap) 1973 COLOGUARD 1999 COLON CANCER SCREENING 5 YEA R SIGMOIDOSCOPY 1999 COLONOSCOPY 1999 [address] CANCER SCREENING 1999 CT COLONOGRAPHY 1999 FECAL OCCULT BLOOD TEST 1999 FIT Testing (1 year) 1999 INFLUENZA VACCINE 06/23/2025 09/12/2024, , 09/12/2022, Additional history exists COVID-19 Vaccine (2024-2 6 season) 2025 01/21/2023, 09/25/2021, 02/27/2021, Additional history exists ANNUAL WELLNESS VISIT 09/14/2025 HEPATITIS C SCREENING 09/14/2025 DXA SCAN 08/17/2026 08/17/2024, 07/25, 08/12/2023, Additional history exists MAMMOGRAM 09/13/2027 09/13/2025, 08/24, 09/10/2023, Additional history exists ZOSTER VACCINE Completed 08/06/2021, 05/07/2021 Pneumococcal Vaccine 50+ Completed 06/29/2025, 04/23 Procedures Procedure Name Priority Date/Time Associated Diagnosis Comments MAMMO SCREENING DIGITAL TOMOSYNTHESIS BILATERAL W CAD Routine 09/13/2025 8:49 AM EDT Visit for screening mammogram [facility] GENETIC ASSESSMENT Routine 09/09/2025 4:12 PM EDT from Last 3 Months Results * Mammo Screening Digital Tomosynthesis Bilateral With CAD (09/13/2025 8:49 AM EDT) Anatomical Region Laterality Modality Breast N/A Mammography 09/14/2025 1:31 PM EDT Impressions 09/14/2025 1:35 PM EDT No mammographic findings suspicious for malignancy. RECOMMENDATION: Continue annual screening mammography. BI-RADS CATEGORY 1, NEGATIVE. CAD was utilized. The standard false-negative rate of mammography is between 10% and 25%. Complex patterns or increased breast density will markedly elevate the false-negative rate of mammography. A letter, in lay terminology, with the results of this exam will be mailed to the patient. 09/14/2025 1:[address] Margaret Hanna MD on Narrative 09/14/2025 1:35 PM EDT BILATERAL SCREENING MAMMOGRAM WITH TOMOSYNTHESIS: HISTORY: 69-year-old patient with no personal history of breast cancer and no new breast complaints. Her maternal grandmother and maternal aunts were diagnosed with breast cancer. TECHNIQUE: Bilateral CC and MLO low dose, full field digital mammographic images were obtained with tomosynthesis. COMPARISON: 09/12/2024, 09/10/2023, 09/08/2022, 09/02/2021, 09/01/2020, 08/19/2019, 06/28/2018, 06/26/2017, 06/24/2016 FINDINGS: There are scattered areas of fibroglandular density. The fibroglandular pattern is stable. There are no suspicious masses, worrisome calcifications, nonsurgical areas of architectural distortion, or other secondary signs of malignancy. us Eloise Rodriguez MD IMG MAMMOGRAPHY ORDERABLES Final Result * (ABNORMAL) [facility] RISK ASSESSMENT QUESTIONNAIRE - , (09/09/2025 4:12 PM EDT) Scott 5 [facility] enEvolv NCCN NCCN met(A) [facility] Comment:High Risk Cancer Ris k Assessment 09/09/2025 4:12 PM EDT us Eloise Rodriguez MD GENETIC TESTING Final Resul t [facility]
[address] [place] [address], [place] [phone] from Last [address] [address] [employer] PPO Care Teams Corn Husk Baler Relationship Specialty Start Date End Date Sourav Cao MD [address] [facility] [address] [place] [address] PCP - General Family Medicine 06/28/18
--- OUTSIDE RECORDS SUMMARY | 2025-11-21 06:33 | XMS_ITS | Continuity of Care Document ---
Author Organization [facility] [place] Address [address] [place] [address] Care Team Providers Care Rivet Maker Name Role Phone CHANO ANSHU Primary Care Provider Assessment No assessment recorded. 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 Procedures None allan rded . Surgeries None allan rded . Imaging None allan rded . Medication Orders Efud ex 5 % topi keyanna garcia 2024 025 [facility], [address], [address], 08/30/2025 11:26:08 Patient TargetsNo targets recorded. Patient Instructions Encounter Date Encounter Id Patient Instructions Last Modified By Organization Details Last Modified Time 08/30/2025 [id number] planning to go t [place] in Dec 2025 [email or web address] Not available 08/30/2025 10:24:47 Reason for Referral None Reported. Results Created Date Observation Date Name Description Value Unit Range Abnormal Flag Note LastModifiedBy Organization Detail LastModifiedTime 08/30/2008/30/2025 SURGI KEYANNA surgical SEE BELOW [place] topat holog y Repor t NAME: REBA ROMO PATH: [id number] PROCE DURE DATE: 08/30 SIGNO UT [...] Not Available [facility] [address] [place], [address], 08/31/2025 11:50:25 Result Notes None recorded. Problems No Known Problems Procedures Surgical History Date Name Laterality Status Provider Name and Address Organization Details Recorded Time 08/30/20 25 DAK - Bi[facility], [facility] 08/30/2025 10:23:27 08/30/20 24 Destruction Premalignant Lesion(s) [facility] 08/30/2024 11:56:17 02/03/20 24 Destruction Premalignant Lesion(s) completed [facility] 02/03/2024 11:12:01 02/03/20 24 Destruction BN Lesions completed [facility] 02/03/2024 11:10:27 09/01/20 17 Orthopedic Surgery completed Emily Agudelo [facility] 11/18/2017 13:27:14 04/23/20 10 Total hip arthroplasty completed Lali Brower [facility] 11/12/2016 11:17:12 Imaging Results None recorded. Procedure Notes None recorded. Medical Equipment None Reported. Allergies Allergen ID Allergen Name Allergen Category Reaction Reaction Severity Criticality Documentation Date Start Date Code Code System Note Provider Name and Address Organization Details Recorded Time 786717 Augmentin medicatio n Not available Not available Not available 12/30/2017 35293 2 RxNorm Madison Ch[facility] 8 15:49:42 646312 Levaquin medicatio n Not available Not available Not available 12/30/2017 00186 2 RxNorm Crystal Ricco [facility] 8 15:49:49 029535 Substance with sulfonami de structure and antibacte rial mechanism of action (substanc e) medicatio n Not available Not available Not available 08/30/2024 63305 8003 SNOMED Chrissy Mirzacarol [facility] 4 11:42:13 Medications Name Sig Start Date [...] completed Not Available Not Available Not Available [place] 10 mg-325 mg tablet TAKE 1/2-1 TABLET [...] Tobacco Smoking Status Never Smoker Lali Brower [facility] 11/12/2016 11:14:06 Accident Related Injury No Information [...] This Be Filed As Workers' Compensation? No [email or web address] Information not available 11/18/2017 Marital Status Information not available 11/12/2016 What Was The Date Of Your Most Recent Tobacco Screening? 07/19/2018 Information not available 01/10/2020 Work Related Injury? No [email or web address] Information not available 11/18/2017 Sex: Unknown Functional Status Question Answer Note LastModified by Organizat ion Details LastModified Time Do you use any illicit or recreational drugs? No Information not available 11/12/2016 What is your level of alcohol consumption? None Information not available 11/12/2016 Are you currently employed? Yes Information not available 11/12/2016 What is your occupation? [employer] Information not available 11/12/2016 Mental Status None recorded. Family History Relationship Description Onset Age of this Age Resolved Age Notes LastModified by Organization Details LastModified Time Mother Arthritis [email or web address] Not available 11/12/2016 11:13:16 Mother Hypertensive disorder kduffie Not available 2015 11:13:34 Maternal Grandmother Arthritis kduffie Not available 10/24 11:13:16 Medical History Condition Response Allergies/Hayfever Y Other N Gout N Anxiety/Depression N Thyroid Disease N Squamous Cell Carcinoma Y Heart Conditions N Kidney Stones Y Hernia N Migraines N COPD N Glaucoma N Pneumonia N Immune System Disorder N Anesthesia Complications N Heart Attack ([place]) N Mental Illness N Neurological Problems N [...] ICD10 Code Diagnosis IMO Codes Diagnosis Note [id number] NILAM Roque APRN [facility] [address] [place] [address] 08/30/2025 09:22:45 08/30/2025 10:58:46 History of malignant neoplasm of skin [id number] Z85.828 most recent skin cancer 04/2021 - No evidence of recurrence today- Call with any worrisome lesions or if treated lesions return- Return at regular intervals for skin exam as recommende d Multiple b enign melanocytic nevi [id number] D22.5 - Benign moles seen on exam [...] changing or worrisome lesions Seborrheic keratosis 394 [id number] L82.1 - Benign overgrowth s of skin - Hereditary Senile angioma 1202719 I 78.1 - Benign blood vessel growths - Hereditary Solar lentigo [id number] L 81.4 - Benign brown spots - Sun-induce d Neoplasm o f uncertain behavior of skin 56057297 D48.5 Recommend blade biopsy. Risks, benefit, and procedure discussed with patient. Consent obtained. Discussed the biopsy only takes the top layer of the lesion for testing. This does NOT treat the skin cancer if it is one. Advised they would need to return for more treatment given the type and depth of the skin cancer when the results come in. Solar degeneration 69905 006 L57.8 766 Diffuse damage to the [...] (MEDICARE REPLACEMENT/A DVANTAGE - PPO) Reba Arita [id number] Reba Arita Notes Date Note Type Note [...] elbow, and widespread of face. NILAM PRATHER, RETAIL SHIFT SUPERVISOR [address] [place], [address], [facility] 08/30/2025 14:55:19 OBGyn Episode No OBEpisode recorded.
--- OUTSIDE RECORDS SUMMARY | 2025-11-21 06:34 | XMS_ITS | Data Portability ---
Author Organization [facility] Kodak blanco, [place] CLOS[facility] Address [address] [place] [address] Care Team Providers Care Finishing Range Feeder Name Role Phone ANSHU MADDEN Primary Care Provider Assessment No assessment recorded. 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 Procedures None allan rded . Surgeries None allan rded . Imaging None allan rded . Medication Orders Efud ex 5 % topi [facility] [address], [address], 08/30/2025 11:26:08 Patient TargetsNo targets recorded. Patient Instructions Encounter Date Encounter Id Patient Instructions Last Modified By Organization Details Last Modified Time 08/30/2025 [id number] planning to go t o [place] in Dec 2025 [email or web address] Not available 08/30/2025 10:24:47 Reason for Referral None Reported. Results Created Date Observation Date Name Description Value Unit Range Abnormal Flag Note LastModifiedBy Organization Detail LastModifiedTime 08/30/2008/30/2025 SURGI KEYANNA surgical SEE BELOW [place] topat holog y Repor t NAME: REBA [...] Out Date: 08/31 11:50 1 Not Available [facility] [address] [facility], [place], [address], 08/31/2025 11:50:25 06/21/20 18 06/21/2018 XR, finge r(s) [facility] [address] [place] [address] Patirachelle t Name: REBA crocker : 12/25/18 [...] solo MD on 018 2:09 PM [id number] [facility] [place] [address], [place], [address], 05/29/2022 03:45:32 Result Notes None recorded. Problems No Known Problems Procedures Surgical History Date Name Laterality Status Provider Name and Address Organization Details Recorded Time 08/30/20 25 DAK - Biopsy, Tangential completed [facility] 08/30/2025 10:23:27 08/30/20 24 Destruction Premalignant Lesion(s) completed [facility] 08/30/2024 11:56:17 02/03/20 24 Destruction Premalignant Lesion(s) completed [facility] 02/03/2024 11:12:01 02/03/20 24 Destruction BN Lesions completed [facility] 02/03/2024 11:10:27 09/01/20 17 Orthopedic Surgery [...] Name and Address Organization Details Recorded Time 498805 Augmentin medicatio n Not available Not available Not available 12/30/2017 36697 2 RxNorm [facility] 8 15:49:42 191722 Levaquin medicatio n Not available Not available Not available 12/30/2017 52855 2 RxNorm [facility] 8 15:49:49 263700 Substance with sulfonami de structure and antibacte rial mechanism of action (substanc e) medicatio n Not available Not available Not available 08/30/2024 09207 8003 SNOMED Chrissy Quirozcarol meehan [facility] 11:42:13 Medications Name Sig Start Date Stop [...] completed Not Available Not Available Not Available Capay 10 mg-325 mg tablet TAKE 1/2-1 TABLET [...] Updated DateTime 07/19/2018 166.37 cm 22.6 kg/m2 60603.[address] [facility] 07/19/2018 16:31:53 Date Recorded Body height Body mass index (BMI) Body weight Provider Name and Address Organization Details Last Updated DateTime 08/27/2018 166.37 cm 22.6 kg/m2 95002.75 [facility] 08/27/2018 10:08:52 Social History Question Answer Notes LastModified by Organizat ion Details LastModified Time Tobacco Smoking Status [facility] 11/12/2016 11:14:06 Accident Related Injury No [email or web address] Information not available 11/18/2017 What Is Your [...] This Be Filed As Workers' Compensation? No [email or web address] Information not available 11/18/2017 Marital Status Information not available 11/12/2016 What Was The Date Of Your Most Recent Tobacco Screening? 07/19/2018 Information not available 01/10/2020 Work Related Injury? No [email or web address] Information not available 11/18/2017 Sex: Unknown Functional Status Question Answer Note LastModified by Organizat ion Details LastModified Time Do you use any illicit or recreational drugs? No Information not available 11/12/2016 What is your level of alcohol consumption? None Information not available 11/12/2016 Are you currently employed? 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 Family History Relationship Description Onset Age of this Age Resolved Age Notes LastModified by Organization Details LastModified Time Mother Arthritis [email or web address] Not available 11/12/2016 11:13:16 Mother Hypertensive disorder [email or web address] Not available 2015 11:13:34 Maternal Grandmother Arthritis [email or web address] Not available 10/24 11:13:16 Medical History Condition Response Allergies/Hayfever Y Other N Anxiety/Depression N Gout N Thyroid Disease N Squamous Cell Carcinoma Y Kidney Stones Y Heart Conditions N Hernia N Migraines N COPD N Glaucoma N Pneumonia N Immune System Disorder N Anesthesia Complications N Heart Attack (NE) N Mental Illness N Neurological Problems N Diabetes N Rheumatic Fever N Bleeding Disorder N Seizures/Epilepsy N Arthritis Y Blood Clot N Tuberculosis N Genetic Disorder N AIDS/HIV N Cancer N Stroke N Asthma N Blood Thinners N Basal Cell Carcinoma Sleep Apnea N Alcohol Overuse/Alcohol Abuse N High Cholesterol N Skin Cancer Y Liver Disease N Included as Review of Systems Y Hypertension N Osteoporosis Y Kidney Disease N Gynecological HistoryNo gynecological history recorded. Obstetrics History GPAL:G 0 P 0 0 0 0 Past Encounters Encounter ID Performer Location Encounter Start Date Encounter Closed Date Diagnosis/Indication Diagnosis SNOMED-CT Code Diagnosis ICD10 Code Diagnosis IMO Codes Diagnosis Note [id number] KATELYNN PAEZ MD [facility] [address] [address] 11/12/2016 10:48:58 11/12/2016 12:34:45 Crushing injury of finger 66597845 S67.191A At this point continued hand therapy would be helpful and I have recommende d a hand therapy referral to work with her, increasing and strengthen ing in mind muscle connection for the index finger is important as people tend to bypass it limiting the perceived range of motion. Osteoarthr itis of wrist 788282841 M19.031 Bilateral CMC arthritis Hand-based thumb spica splints Follow-up as needed, obtain x-rays Agree hyperprona suman view and 0 rotation PA neutral lateral and follow-up [id number] KATELYNN PAEZ MD [facility] [address] [address] 12/01/2016 15:29:39 12/01/2016 16:39:03 Crushing injury of finger 88796801 S67.191A Home exercises only, she can improve function without further impingemen tor changes and range of motionand I think that is preferable to her forcing it with more therapy. Osteoarthr itis of wrist 988733414 M19.031 Bilateral CMC arthritiss plints are helpful. [...] trigger finger on that side as well. [id number] KATELYNN PAEZ MD SURGERY SCHEDULE [address] [place] [address] 03/19/2017 11:17:35 03/19/2017 11:24:02 [id number] KATELYNN PAEZ MD [facility] [address] [place] [address] 03/31/2017 13:48:41 03/31/2017 15:40:04 Osteoarthritis of wrist 784225450 M19.031 Doing well status post right thumb CMC arthroplas ty, trigger finger release long finger, 2 weeks out. Follow-up 1 month no x-rays [id number] KATELYNN PAEZ MD [facility] [address] [address] 05/01/2017 10:19:34 05/01/2017 11:52:24 Osteoarthritis of wrist 129983999 M19.031 Doing great 6 weeks postop, also with trigger finger release, schedule left at her [facility] e, she will call to schedule [id number] KATELYNN PAEZ MD SURGERY SCHEDULE [address] [place] [address] 09/01/2017 06:05:50 09/01/2017 06:08:50 [id number] VALENCIA HARP PA-C [facility] [address] [place] [address] 09/14/2017 12:37:34 09/14/2017 14:04:34 Osteoarthritis of wrist 417005202 M19.031 doing well status post left thumb CMC arthroplas ty was suspension plasty and release of the left long trigger finger. [id number] KATELYNN PAEZ MD [facility] [address] [place] [address] 10/07/2017 15:40:54 10/07/2017 17:04:02 Osteoarthritis of wrist 975080298 M19.031 doing well status post left thumb CMC arthroplas ty was suspension plasty and release of the left long trigger finger Neuroma 056976014 D36.10 Superficia l branch radial nerve, IRecommend angelaz ation, Follow-up 6 weeks, we will do therapy for restoratio n of range of motion and function in the meanwhile [id number] KATELYNN PAEZ MD [facility] [address] [address] 11/18/2017 13:03:12 11/18/2017 14:03:33 Osteoarthritis of wrist 055923962 M19.031 doing well status post left thumb CMC arthroplas ty was suspension plasty and release of the left long trigger finger, she has developed flexor tendon adhesions to the MP joint capsule with a pseudo-bow stringing. We will observe this. I cut out all therapy other than working on this Neuroma 383921715 D36.10 Superficia l branch radial nerve, observe for now, seems to be improving. Follow-up 6 weeks [id number] KATELYNN PAEZ MD [facility] [address] [place] [address] 12/30/2017 15:32:12 12/30/2017 16:34:52 Osteoarthritis of wrist 591949666 M19.031 Osteoarthr itis doing well she will do exercises on her own Neuroma 561593335 D36.10 Superficia l branch radial nerve, Improving Trigger finger 426615214 1 92747 M65.30 Trigger finger release complicate d by MP flexion contractur e. Figure-of- eight splint for PIP joint which is starting to hyperexten d And snap. Follow-up in the spring or whenever she is ready to discuss MP joint volar capsulecto my with postoperat kushal splinting [id number] KATELYNN PAEZ MD [facility] [address] [place] [address] 04/26/2018 10:09:03 04/26/2018 12:24:42 Trigger finger 5048828512 82055 M65.30 Trigger finger release complicate d by [...] needed. It is likely to be intact. [id number] KATELYNN PAEZ MD SURGERY SCHEDULE [address] [place] [address] 05/25/2018 08:20:20 05/25/2018 08:23:27 [id number] KATELYNN PAEZ MD [facility] [address] [place] [address] 06/04/2018 10:13:01 06/04/2018 13:20:49 Trigger finger 0383127240 59844 M65.30 2 weeks status post release MP flexion contractur e, A2 roby reconstruc tion with FDS tenodesis and PIP joint pinning. Continue DIP range of motion MP range of motion including passive MP extension, no blocking for DIP motion, follow-up next week for pin check [id number] KATELYNN PAEZ MD [facility] [address] [place] [address] 06/11/2018 07:46:12 06/11/2018 10:30:15 Trigger finger 3575048398 28199 M65.30 17d weeks status post release MP flexion contractur e, A2 roby reconstruc tion with FDS tenodesis and PIP joint pinning. Follow-up on June 21 or June 23, Valencia Leong , x-rays. Pin removal. Sent back to [facility] to have a digit dorsal block splint and begin range of motion of PIP joint with dorsal block, preventing hyperexten david of the PIP joint. Follow-up after that at the 6 week point. [id number] VALENCIA HARP PA-C [facility] [address] [address] 06/21/2018 13:48:20 06/22/2018 07:45:58 Trigger finger 3496393320 49555 M65.332 Trigger finger release complicate d by MP flexion contractur e. Figure-of- eight splint for PIP joint which is starting to hyperexten d And snap.;, status post corrective surgery [id number] KATELYNN PAEZ MD [facility] [address] [place] [address] 07/19/2018 15:47:02 07/19/2018 17:03:30 Trigger finger 8597452486 76950 M65.332 Status post MP capsulecto my, PIP capsulodes is. Doing well, tape or therapy. Progress to full use, follow-up 6 weeks [id number] KATELYNN PAEZ MD [facility] [address] [address] 08/27/2018 10:05:08 08/27/2018 10:42:55 Trigger finger 1805050379 69060 M65.332 Doing great. Full use. Follow-up as needed. Successful reconstruc tion/linda ge [id number] NILAM RAYMOND R, SLASHER TENDER HELPER DAK [place] [address] [place] [address] 02/03/2024 10:42:06 02/03/2024 15:24:06 History of malignant neoplasm of skin 988864651 Z85.828 last skin cancer - 2020 - No evidence of recurrence today- Call with any worrisome lesions or if treated lesions return- Return at regular intervals for skin exam as recommende d Multiple b enign melanocytic nevi 930353373 D22.5 - Benign moles seen on exam [...] changing or worrisome lesions Seborrheic keratosis 394 011433 L82.1 - Benign overgrowth s of skin- Hereditary *No charge SK* Senile angioma 4577719 I 78.1 - Benign blood vessel growths - Hereditary Solar lentigo 79513575 L 81.4 - Benign brown spots - [...] before summer. Will re-evaluat e next fall. [id number] JESSICA FERMIN [place] [address] [place] [address] 08/30/2024 11:14:12 08/30/2024 13:13:51 Multiple benign melanocytic nevi 791834639 D22.5 - Benign moles seen on exam [...] changing or worrisome lesions Seborrheic keratosis 394 904701 L82.1 - Benign overgrowth s of skin - Hereditary Senile angioma 2855715 I 78.1 - Benign blood vessel growths - Hereditary Solar lentigo 97273575 L 81.4 - Benign brown spots - Sun-induce d History of malignant neoplasm of skin 568039209 Z85.828 Long hx of NMSC. Most recent 2020 - No evidence of recurrence today- Call with any worrisome lesions or if treated lesions return- Return at regular intervals for skin exam as recommende d Actinic keratosis 932246 007 L57.0 Actinic keratoses are precancero us lesions that may progress to squamous cell carcinoma if untreated. UV light and genetics may increase risk. Treated lesions should blister, scab over, and heal within a few weeks. If treated lesion(s) does not resolve within 1-2 months, patient agrees to follow up for re-evaluat ion. [id number] NILAM Roque APRN [facility] [address] [place] [address] 08/30/2025 09:22:45 08/30/2025 10:58:46 History of malignant neoplasm of skin 969245234 Z85.828 most recent skin cancer 04/2021 - No evidence of recurrence today- Call with any worrisome lesions or if treated lesions return- Return at regular intervals for skin exam as recommende d Multiple b enign melanocytic nevi 579678883 D22.5 - Benign moles seen on exam [...] changing or worrisome lesions Seborrheic keratosis 394 682255 L82.1 - Benign overgrowth s of skin - Hereditary Senile angioma 9380491 I 78.1 - Benign blood vessel growths - Hereditary Solar lentigo 71168577 L 81.4 - Benign brown spots - Sun-induce d Neoplasm o f uncertain behavior of skin 27903571 D48.5 Recommend blade biopsy. Risks, benefit, and procedure discussed with patient. Consent obtained. Discussed the biopsy only takes the top layer of the lesion for testing. This does NOT treat the skin cancer if it is one. Advised they would need to return for more treatment given the type and depth of the skin cancer when the results come in. Solar degeneration 59142 006 L57.8 766 Diffuse damage to the [...] (MEDICARE REPLACEMENT/A DVANTAGE - PPO) Reba Arita [id number] Reba Arita 09/25/2017 [place] [employer] Reba Arita 02/03/2024 1 [place] [id number] Reba Arita [id number] Reba Arita Notes Date Note Type [...] related, patient reportsno. 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 PIP joint does not hyperextend. KATELYNN PAEZ MD [address] [place] [address], [address], [facility] 07/19/2018 16:48:57 08/27/2018 text/html Hand SurgeryRepo rted [...] concerns Doing well KATELYNN PAEZ MD [address] [place], [address], [facility] 08/27/2018 10:31:14 02/03/2024 text/html ROS as noted in the HPI Here for a full body skin examination - last skin check: Jul 2023 - history of skin cancer - SCC - last skin cancer was in 04/2021 - spots of concern today: I have multiple concerns. NILAM PRATHER, JESSICA [address] [place], [address], [facility] 02/03/2024 11:16:24 08/30/2024 text/html ROS as noted in the HPI Here for a full body skin examination- last skin check: 02/13- history of skin cancer - SCC- last skin cancer was in 04/2021- spots of concern today: face, chest NILAM PRATHER APRN [address] [place], [address], [facility] 08/30/2024 17:03:03 08/30/2025 text/html ROS as noted in the HPI Here for a full body skin examination- last skin check: 08/2024 - history of skin cancer - BCC & SCC - last skin cancer was in: 04/2021 - spots of concern today: Chest, midline upper back, R hand, 2 moles on the back, R elbow, and widespread of face. NILAM PRATHER APRN [address] [place], [address], [facility] 08/30/2025 14:55:19 OBGyn Episode No OBEpisode recorded.
--- OUTSIDE RECORDS SUMMARY | 2025-11-21 06:34 | XMS_ITS | Clinical Summary ---
Author Organization Healthcare Address [address] [place] [address] Care Team Providers Care Regulatory Agency Director Name Role Phone Brandon Cao MD Primary Care Provider [phone] Allergies Active Allergy Reactions Criticality Noted Date [...] 01/20/2025 7:56 AM EST Plan of Treatment Health Maintenance Due Date Last Done Comments [facility]-Hepatitis C Screening 1955 [facility]-Medicare Annual Wellness (AWV) 1955 [facility]-Infant/Child/Adol SDOH Screenings 1954 [facility]- SDOH Screenings 1972 [facility]-Adult SDOH Screenings 1972 [facility]-DTaP,Tdap,and Td Vaccines (1 - Tdap) 1973 CT Colonography 1999 Colonoscopy 1999 FIT-DNA 1999 FIT 1999 FOBT 1999 Sigmoidoscopy 1999 [facility]-Colorectal Cancer Screening 1999 [facility]-Pneumococcal Vaccine: 50+ Years (2 of 2 - PPSV23, PCV20, or PCV21) 06/29/2020 05/04/2020 [id number] Vaccine ( - season) 2025 01/21/2023, 09/25/2021, 02/27/2021, Additional history [...] 12/23/2024, 08/17/2024, Additional history exists HPV Vaccines (No Doses Required) Completed [facility]-HIB Vaccines Aged Out No longer e ligible based on patient's age to complete this topic [facility]-IPV Vaccines Aged Out No longer e ligible based on patient's age to complete this topic [facility]-Rotavirus Vaccines Aged Out No lo nger eligible based on patient's age to complete this topic Medical Devices Implanted Type Area Manager Appointment Device Identifier Shelf Expiration Date Model / [...] Fluoroscop y Narrative 08/22/2024 2:36 PM EDT [facility] [address] [place] [address] DXA Bone Densitometry Report: [08/17/2024] BMD test performed using the Lightonus.comXA DXA System (analysis version: 14.10) manufactured by [employer]. REFERRING PROVIDER: Dr. Ronit Quinn PA CLINICAL [...] Most Recently Relevant to Health Maintenance [place] [address] [employer] MEDICARE Advance Directives * Full Code (Latest Code Status on File) Date Activated Date Inactivated Comments 03/09/2024 1:05 PM 03/10/2024 12:55 PM Question Answer Comments Patient has decision-making capacity? Yes Care Teams Regulatory Agency Director Relationship Specialty Start Date End Date Brandon Cao MD [facility] [address] PCP - General 08/11/22
--- OUTSIDE RECORDS SUMMARY | 2025-11-21 06:35 | XMS_ITS | Patient Health Record ---
Author Organization [facility] Address [address] [facility] [address] [place] [address] Care Team Providers Care Transmission Rebuilder Name Role Phone Eloise Rodriguez Unavailable [phone] Allergies Allergen (clinical drug ingredient) Drug/Non Drug Allergy documented on EMR Reaction Allergy Type Onset Date Status AUGMENTIN (AMOXICILLIN-POT CLAVULANATE TABS) shakes Drug Allergy 04/28/2018 Active LEVAQUIN (LEVOFLOXACIN TABS) Unspecified Drug Allergy 04/28/2018 Active sulfa antibiotic rash hives Drug Allergy Active Results Component Value Reference Range Notes MAMMO SCREENING DIGITAL TANISHA SYNTHESIS BILATERAL W CAD Reviewed date:09/14/2025 04:50:03 PM Interpretation: Performing Lab: Notes/Report: BILATERAL SCREENING MAMMOGRAM WITH TOMOSYNTHESIS: HISTORY: 69-year-old [...] distortion, or other secondary signs of malignancy. No mammographic findings suspicious for malignancy. RECOMMENDATION: [...] PM by Dr. Margaret Hanna MD on Signed by: Margaret Hanna MD on 09/14/2025 1:35 PM Reason for Exam:->[id number] Reason For Referral No Information Medications Medication [...] Status Risk Notes Problem Pessary care (regime/therapy) (850932730) Encounter for pessary maintenance (Z46.89) Active confirmed Problem Complete uterine prolapse (94286403) Complete uterine prolapse (N81.3) Active confirmed Problem Midline cystocele (643299032) Midline cystocele (N81.11) Active confirmed Problem Gynecological examination normal (676223703338015 ) Cervical smear, as part of routine gynecological examination (Z01.419) 08/02/20 20 Active confirmed Annual without abnormal findings Problem Lichen sclerosus (321122928) Lichen sclerosus (L90.0) Active confirmed Plan Of Treatment No Information Insurance Providers Payer Name Payer Address Payer Phone Subscriber Number Group Number Insured Name Patient Relationship to Insured Coverage Start Date Coverage End Date [employer] [address] [address] [place], [place] [id number] Reba Arita Self - patient is the [...]
--- OUTSIDE RECORDS SUMMARY | 2025-11-21 06:35 | XMS_ITS | Patient Health Record ---
[facility] [address] [facility] [address] [place] [id number] Care Team Providers Care Supervisor [employer] Name Role Phone Jude aCo Primary Care Provider Octavia Sheikh Unavailable [phone] Allergies Allergen (clinical drug ingredient) Drug/Non Drug [...] date:08/01/2025 02:00:23 PM Interpretation: Performing Lab: Notes/Report: Influenza Screen (in house) Reviewed date:09/15/2025 03:56:02 [...] PM Interpretation: Performing Lab: Notes/Report: Result: neg MRI : Brain with and w/o con trast Reviewed date:12/15/2024 10:45:27 AM Interpretation:no evidence of recent infarct, pituitary cyst Performing Lab: Notes/Report: no evidence of recent infarct, pituitary cyst H-TSH Reviewed date:07/27/2025 02:22:14 PM Interpretation: Performing [...] Performing Lab: Notes/Report: FE 126 37-170 ug/dL Reason For Referral Diagnosis 1 Heart palpitations ( R00.2) Diagnosis 2 Dizziness (R42) Diagnosis 3 Recurrent syncope (R 55) Referral Organization [facility] Referring Provider First Name Octavia Referring Provider Last Name Kori Referring Provider Speciality Physician Engine Dynamometer Tester Referred Provider Cardiology, . Referred Provider Specialty Cardiovascul ar Disease General Notes Octavia Sheikh 2024 11:46:58 PM > Needs appt with cardiology Em RODRIGUEZ Brynn 11/25/2024 8:37:22 AM > faxed to [facility] CardiologyEm Brynn 11/29/2024 11:30:11 AM > 11/29/2024 at 02:00pm Referral Priority Routine Reason patient needs to see Dr. Wu Diagnosis 1 Vertigo (R42) Referral Organization [facility] Referring Provider First Name Octavia Referring Provider Last Name Kori Referring Provider Speciality Physician Engine Dynamometer Tester Referred Provider Specialty ENT General Notes Magi Strickland 12/15/19 10:52:03 AM > 01/16/2025 at 01:10 pm; pushed out to December because he is only here twice a month; patient informed Referral Priority Routine Diagnosis 1 Choking episode (R09 .89) Referral Organization [facility] Referring Provider First Name Octavia Referring Provider Last Name Kori Referring Provider Speciality Physician Engine Dynamometer Tester Referred Provider Specialty Gastroentero logy General Notes Octavia Sheikh 03:09:50 PM >Pt needs an appt with Em Bautista Brynn 09/18/2025 11:24:51 AM > faxed to [facility] GI Referral Priority Routine Medications Medication SIG (Take, Route, Frequency, Duration) Notes Start Date End Date Status Vitamin D 50 MCG (1999) 1 capsule Ora lly Once a day; Duration: 30 day(s) Active Sertraline HCl 50 MG 1 tablet Orally Onc e a day; Duration: 90 days Active Mupirocin 2 % 1 application Race 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 Mechanic ally once a day 06/29/2025 Active Airsupra 90-80 MCG/ACT 2 puffs as needed Inhalation 4 times a day, prn 09/15/2025 Active Glucosamine Chondroitin MSM - as directed Orally Active Benzonatate 200 MG 1 capsule Orally Thr ee times a day, prn 09/15/2025 Active MiraLax 17 GM/SCOOP as directed Orally Active Clobetasol Propionate 0.05 % 1 josee applied topically 2 times a day prn Active Famotidine 20 MG 1 tab(s) orally once a day (at bedtime) Active hydrOXYzine HCl 25 MG 1 tablet Orally ev luis eduardo 6 hrs, prn Active Vitamin E 400 UNIT 1 cap(s) orally once a day Active Bisoprolol Fumarate 5 MG 1 tablet Orally Once a day; Duration: 90 days Active Montelukast Sodium 10 MG take 1 tablet b y mouth once daily Orally once daily; Duration: 90 days Active Atorvastatin Calcium 10 MG take 1 [...] W/U Status Risk Notes Problem Atrial fibrillation (13833325) Atrial fibrillation (I48.91) Active confirmed Problem Vitamin D deficiency (04841156) Vitamin D deficiency (E55.9) Active confirmed Problem Paroxysmal atrial fibrillation (835699175) Paroxysmal atrial fibrillation (I48.0) Active confirmed Problem 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, 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) Active confirmed Problem Bilateral tinnitus (7803622184329) Tinnitus, bilateral (H93.13) Active confirmed Problem History of polyp of colon (situation) (658218459) History of colon polyps (Z86.010) Active confirmed Problem Generalized anxiety disorder (43818349) Anxiety, generalized (F41.1) Active confirmed Problem Tinnitus of left ear (7660647491258) Tinnitus of left ear (H93.12) Active confirmed Problem Dyslipidemia (579091728) Dyslipidemia (E78.5) Active confirmed Problem Allergic rhinitis (53952841) Seasonal allergic rhinitis due to other allergic trigger (J30.89) Active confirmed Problem Pure hypercholesterolemia (100798659) Pure hypercholesterolemia (E78.00) Active confirmed Problem Age-related osteoporosis (349313326) Osteoporosis, unspecified osteoporosis type, unspecified pathological fracture presence (M81.0) Active confirmed Problem Age-related osteoporosis (387464129) Age related osteoporosis, unspecified pathological fracture presence (M81.0) Active confirmed Problem Seasonal allergic rhinitis (091838871) Seasonal allergic rhinitis, unspecified trigger (J30.2) Active confirmed Problem Allergic rhinitis (12531626) Allergic rhinitis, unspecified seasonality, unspecified trigger (J30.9) Active confirmed Problem Essential hypertension (85662462) Hypertension, unspecified type (I10) Active confirmed Problem Seasonal allergic rhinitis (487137579) Acute seasonal allergic rhinitis (J30.2) Active confirmed Problem Dizziness and giddiness (706000111) Dizziness after extension of neck (R42) Active confirmed Problem Sensorineural hearin g loss (61394165) Sensorineural hearing loss (SNHL) of left ear, unspecified hearing status on contralateral side (H90.5) Active confirmed Problem Primary hypertension (01484582) Primary hypertension (I10) Active confirmed Vital Signs Heart Rate 72 /min 09/15/2025 Blood pressure diastolic 82 mm Hg 09/15/2025 Height 65 in 09/15/2025 Blood pressure systolic 130 mm Hg 09/15/2025 Weight 146.4 lbs 09/15/2025 BMI 24.36 kg/m2 09/15/2025 Encounters Encounter Location Date Provider Diagnosis [facility] [address] [facility] [address] [place], [place] [id number] 11/24/2024 Octavia Crowdy Syncope, unspecified syncope type R55 ; Dizziness R42 ; Heart palpitations R00.2 ; Tinnitus, bilateral H93.13 and Anxiety, generalized F41.1 [facility] [address] [facility] [address] [place], [place] [id number] 12/08/2024 Octavia Crowdy Syncope, unspecified syncope type R55 ; Dizziness R42 ; Heart palpitations R00.2 ; Tinnitus, bilateral H93.13 ; Anxiety, generalized F41.1 and Acute URI J06.9 [facility] [address] [place], [place] [id number] 02/08/2025 Octavia Kori Injury of toe on rig ht foot, initial encounter S99.921A and Anxiety, generalized F41.1 [facility] [address] [place], [place] [id number] 06/29/2025 Octavia Kori Adult general medica l [...] enzymes R74.8 and Vitamin D deficiency E55.9 [facility] [address] [place], [place] [id number] 09/15/2025 Octavia Crowdy Acute URI J06.9 and Choking episode R09.89 [facility] [address] [place], [place] [id number] 12/15/2024 Octavia Crowshira Anxiety, generalized F41.1 and Vertigo R42 [facility] [address] [place], [place] [id number] 12/19/2024 Jude Cao Anxiety, generalized F41.1 [facility] [address] [place], [place] [id number] 12/23/2024 Octavia Crowdy [facility] [address] [place], [place] [id number] 01/26/2025 Octavia Crowdy Anxiety, generalized F41.1 [facility] [address] [place], [place] [id number] 02/10/2025 Octavia Crowdy [facility] [address] [facility] [address] [place], [place] [id number] 03/08/2025 Jude Cao Anxiety, generalized F41.1 [place] [address] [place] [id number] 06/14/2025 Octavia Sheikh Hypertension, unspecified type I10 [place] [address] [facility] [address] [place] [id number] 07/25/2025 Jude Villatoro [address] [facility] [address] [place] [id number] 07/27/2025 Octavia Dyllanshira Assessments Encounter Date Diagnosis (ICD Code) Assessment [...] Hypertension, unspecified type (ICD-10 - I10) n 09/15/2025 Acute URI (ICD-10 - J06.9) 09/15/2025 Choking episode (ICD-10 - R09.89) 06/29/2025 Anxiety, generalized (ICD-10 - F41.1) n [...] Date [employer] (MEDICAR E) [address] [address] [place] [address] [phone] [id number] NORBERTO SOLOMON Self - patient is the insured Medical (General) History Medical History History ICD Code Hyperlipidemia arthritis osteoporosis/ostepenia Dr Natalio Roberts [place] disease Dr Roman kidney stones-Dr Agudelo vertigo Colon polyps Hypertension STRING STUDIES 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 Rodriguez Surgical History Surgery Date(Month/Year) [...]
--- NOTE | 2025-11-21 06:38 | CT_ITS ---
FINAL REPORT TECHNIQUE: Thin section axial images were obtained from the lung apices through the upper abdomen without contrast. This study was performed with techniques to keep radiation doses as low as reasonably achievable (ALARA). Individualized dose reduction techniques using automated exposure control or adjustment of mA and/or kV according to the patient's size were employed. CLINICAL HISTORY: fall, worsen L anterior rib margin pain FINDINGS: There is no mediastinal, hilar, or axillary lymphadenopathy. There is no pericardial effusion. There are small, left greater than right pleural effusions. There is a 6 mm ground glass nodule along the right minor fissure on series 3, image 69 measuring 6 mm. There is bilateral lower lobe atelectasis. Limited images of the upper abdomen reveal several hypodense liver lesions, favor cysts. There is a nondisplaced anterior left fifth rib fracture. IMPRESSION: Nondisplaced anterior left fifth rib fracture. Small bilateral effusion. Reviewed, Interpreted and Dictated by Kathryn Giordano MD Transcribed by Melina Moulton Authenticated and . [facility]
[2025-11-21 06:40] VITALS: BP 181/96; PULSE 77; RESP 20; TEMP 36.5; O2SAT 99; BMI 24.1
[2025-11-21] MEDS: METHOCARBAMOL 500MG TABLET 500 MG PO (06:48)
[2025-11-21] MEDS: ACETAMINOPHEN 500MG TAB 1000 MG PO (06:48)
[2025-11-21] MEDS: LIDOCAINE 5% TRANSDERMAL PATCH 1 EACH TD (06:48)
[2025-11-21] MEDS: IBUPROFEN 600 MG TABLET PO (06:48)
[2025-11-21] MEDS: OXYCODONE 5MG IMMEDIATE RELEASE TABLET 5 MG PO (06:48)
[2025-11-21 07:17] VITALS: BP 155/82; PULSE 60; RESP 18; TEMP 36.5; O2SAT 100
== END 2025-11-21 07:35 | disposition home or self-care (01) ==
PROVIDERS: Emergency Provider Emergency Medicine; PCP Physician Assistant
DX: S22.32XA Fracture of one rib, left side, initial encounter for closed fracture (principal); R07.81 Pleurodynia; W19.XXXA Unspecified fall, initial encounter
CPT/HCPCS: 71250; 99283; 99284